=== PATIENT | female | born 1945 | race Caucasian/White ===

== ENCOUNTER 2018-05-24 17:20 | Emergency (ER) | payer MEDICARE, MEDICAID, OTHER ==
[2018-05-24 17:53] LABS: BEDSIDE GLUCOSE 135 MG/DL (83-110)
[2018-05-24 18:27] LABS: BASO # 0.1 10^3/uL (0.0-0.2); BASO % 0.8 % (0.0-1.0); EOS # 0.1 10^3/uL (0.0-0.50); EOS % 1.1 % (0.0-3.0); HEMATOCRIT 49.1 % (36.0-47.0); HEMOGLOBIN 15.9 g/dl (12.0-15.5); IMMATURE GRANULOCYTE % 0.4 % (0-3.0); LYMPH # 2.3 10^3/uL (1.5-4.5); LYMPH % 20.3 % (24.0-44.0); MEAN CORPUSCULAR HEMOGLOBIN 29.3 pg (27.0-33.0); MEAN CORPUSCULAR HGB CONC 32.4 g/dl (32.0-36.5); MEAN CORPUSCULAR VOLUME 90.4 fl (80.0-96.0); MONO # 0.8 10^3/uL (0.0-0.8); MONO % 6.7 % (0.0-5.0); NEUTROPHILS % 70.7 % (36.0-66.0); PLATELET COUNT, AUTOMATED 338 10^3/uL (150-450); RED BLOOD COUNT 5.43 10^6/uL (4.00-5.40); RED CELL DISTRIBUTION WIDTH 15.3 % (11.5-14.5); WHITE BLOOD COUNT 11.3 10^3/uL (4.0-10.0)
[2018-05-24 18:57] LABS: ANION GAP 10 MEQ/L (8-16); BLOOD UREA NITROGEN 19 MG/DL (7-18); CALCIUM LEVEL 9.2 MG/DL (8.8-10.2); CARBON DIOXIDE LEVEL 23 MEQ/L (21-32); CHLORIDE LEVEL 109 MEQ/L (98-107); CPK CREATINE PHOSPHOKINASE 75 U/L (26-192); GLOMERULAR FILTRATION RATE 51.7 (>39); GLUCOSE, FASTING 124 MG/DL (70-100); MB/CK RELATIVE INDEX 2.53 (< OR =4); POTASSIUM SERUM 4.6 MEQ/L (3.5-5.1); SODIUM LEVEL 142 MEQ/L (136-145); TROPONIN I < 0.02 NG/ML (< 0.10)
[2018-05-24 19:11] LABS: INR 1.01; PROTHROMBIN TIME 13.4 SECONDS (12.1-14.4)
== END 2018-05-24 19:27 | disposition home or self-care (01) ==
LOC: M ED 17:20
DX: R55 Syncope and collapse (principal); R53.1 Weakness; I10 Essential (primary) hypertension; I25.10 Atherosclerotic heart disease of native coronary artery without angina pectoris; Z86.73 Personal history of transient ischemic attack (TIA), and cerebral infarction without residual deficits; Z79.899 Other long term (current) drug therapy; Z79.82 Long term (current) use of aspirin
CPT/HCPCS: 71045

== ENCOUNTER → 2018-08-17 | Outpatient (REF) | payer MEDICARE, MEDICAID ==
[~2018-08-17] MED LIST: AMLO5TAB6 PO; ASPI1TAB20 PO; ATOR1TAB21 PO; CELE40TA OR; ESTR62CR VA; HYDR12CA PO; LISI-672 PO; LISI10TA4 OR; [UNRECOGNIZED DRUG - REMARK]
[2018-08-17 03:08] LABS: APPEARANCE, URINE CLOUDY (CLEAR); BACTERIA, URINE AUTO 1+ (NEGATIVE); BILIRUBIN, URINE AUTO NEGATIVE (NEGATIVE); BLOOD, URINE BLOOD 2+ (NEGATIVE); CALCIUM OXALATE CRYSTALS MODERATE; COLOR, URINE YELLOW (YELLOW); GLUCOSE, URINE (UA) AUTO NEGATIVE (NEGATIVE); KETONE, URINE AUTO NEGATIVE (NEGATIVE); LEUKOCYTE ESTERASE, URINE AUTO 2+ (NEGATIVE); MUCUS, URINE SMALL (NEGATIVE); NITRITE, URINE AUTO NEGATIVE (NEGATIVE); PROTEIN, URINE AUTO NEGATIVE (NEGATIVE); RBC, URINE AUTO 46 /HPF (0-3); SPECIFIC GRAVITY URINE AUTO 1.018 (1.002-1.035); SQUAMOUS EPITHELIAL CELL UR AU 2 /HPF (0-6); UROBILINOGEN, URINE AUTO 0.2 mg/dL (0.0-2.0); WBC, URINE AUTO 34 /HPF (0-3)
== END ==
PROVIDERS: ATTEND Family Medicine
DX: N39.0 Urinary tract infection, site not specified (principal)

== ENCOUNTER → 2020-06-17 | Outpatient (REF) | payer MEDICARE, MEDICAID ==
[~2020-06-17] MED LIST changes: +AMLO1TAB24 PO; -AMLO5TAB6 PO; -ASPI1TAB20 PO; +ASPI325T57 PO; -LISI-672 PO; +LISI30TA4 PO
== END ==
PROVIDERS: ATTEND Internal Medicine
DX: Z20.828 Contact with and (suspected) exposure to other viral communicable diseases (principal)

== ENCOUNTER → 2020-06-22 | Outpatient (REF) | payer MEDICARE, MEDICAID | PROVIDERS: ATTEND Internal Medicine | DX: Z20.828 Contact with and (suspected) exposure to other viral communicable diseases (principal) ==

== ENCOUNTER → 2020-06-29 | Outpatient (REF) | payer MEDICARE, MEDICAID | PROVIDERS: ATTEND Internal Medicine | DX: Z20.828 Contact with and (suspected) exposure to other viral communicable diseases (principal) ==

== ENCOUNTER → 2020-07-06 | Outpatient (REF) | payer MEDICARE, MEDICAID | PROVIDERS: ATTEND Internal Medicine | DX: Z11.52 Encounter for screening for COVID-19 (principal) ==

== ENCOUNTER → 2020-07-13 | Outpatient (REF) | payer MEDICARE, MEDICAID | PROVIDERS: ATTEND Internal Medicine | DX: Z20.822 Contact with and (suspected) exposure to COVID-19 (principal) ==

== ENCOUNTER → 2020-07-20 | Outpatient (REF) | payer MEDICARE, MEDICAID | PROVIDERS: ATTEND Internal Medicine | DX: Z20.822 Contact with and (suspected) exposure to COVID-19 (principal) ==

== ENCOUNTER → 2020-07-27 | Outpatient (REF) | payer MEDICARE, MEDICAID | PROVIDERS: ATTEND Internal Medicine | DX: Z20.822 Contact with and (suspected) exposure to COVID-19 (principal) ==

== ENCOUNTER → 2020-08-03 | Outpatient (REF) | payer MEDICARE, MEDICAID | PROVIDERS: ATTEND Internal Medicine | DX: Z20.822 Contact with and (suspected) exposure to COVID-19 (principal) ==

== ENCOUNTER → 2020-08-10 | Outpatient (REF) | payer MEDICARE, MEDICAID | PROVIDERS: ATTEND Internal Medicine | DX: Z20.822 Contact with and (suspected) exposure to COVID-19 (principal) ==

== ENCOUNTER → 2020-08-17 | Outpatient (REF) | payer MEDICARE, MEDICAID | PROVIDERS: ATTEND Internal Medicine | DX: Z20.822 Contact with and (suspected) exposure to COVID-19 (principal) ==

== ENCOUNTER 2021-03-07 16:28 | Emergency (ER) | payer MEDICARE, MEDICAID ==
[~2021-03-07] VITALS: Ht 154.9 cm; Wt 71.8 kg
[2021-03-07] MEDS ORDERED: LIDOCAINE 5% (LIDODERM) PATCH TD ONE (16:40)
[2021-03-07] MEDS ORDERED: ACETAMINOPHEN 500 MG TAB PO ONE (16:40)
--- NOTE | 2021-03-07 17:19 | REP ---
INDICATION: pain no known trauma. COMPARISON: None. TECHNIQUE: Five views of the lumbar spine were obtained. FINDINGS: There is mild dextroscoliosis of the lumbar spine. There is moderate compression of the superior endplate of T12. There is degenerative disc disease, T12-L1, L2-3 and L3-4, with narrowing of the disc spaces and marginal osteophytes. There is no spondylolisthesis. The SI joints are normal. There is calcific vascular disease of the abdominal aorta and common iliac arteries. IMPRESSION: 1. Multilevel degenerative disc disease of the lower thoracic and lumbar spine with mild dextroscoliosis. 2. Moderate compression of the superior endplate of T12 of indeterminate age. 3. Calcific vascular disease of the abdominal aorta and iliac arteries. <Electronically signed by Timbo Powell > 03/07/21 [id number]
--- NOTE | 2021-03-07 18:16 | REPVR ---
PROCEDURE INFORMATION: Exam: CT Thoracic Spine Without Contrast Exam date and time: 03/07/2021 5:34 PM Age: 75 years old Clinical indication: Injury or trauma; Fall; Blunt trauma (contusions or hematomas); Additional info: T12 compression FX? Retropulsed TECHNIQUE: Imaging protocol: Computed tomography images of the thoracic spine without contrast. Radiation optimization: All CT scans at this facility use at least one of these dose optimization techniques: automated exposure control; mA and/or kV adjustment per patient size (includes targeted exams where dose is matched to clinical indication); or iterative reconstruction. COMPARISON: CR Spine. Lumbosacral, complete 03/07/2021 4:36 PM FINDINGS: Vertebrae: No acute fracture. Normal alignment. Discs/Spinal canal/Neural foramina: Age indeterminate, likely acute or subacute, compression deformity at T12 with mild retropulsion of fracture parts into the spinal canal resulting in a mild to moderate central spinal stenosis with mild cord impingement. The spine demonstrates mild degenerative changes. Soft tissues: Unremarkable. Lungs: Bilateral pleuroparenchymal scarring. Moderate centrilobular emphysematous changes in the upper lung zones demonstrated. Mediastinum: Small hiatal hernia. Gallbladder and bile ducts: Cholelithiasis. IMPRESSION: 1. Age indeterminate, likely acute or subacute, compression deformity at T12 with mild retropulsion of fracture parts into the spinal canal resulting in a mild to moderate central spinal stenosis with mild cord impingement. 2. Moderate centrilobular emphysematous changes in the upper lung zones demonstrated. Electronically signed by: Reynaldo Painter On 03/07/2021 18:16:21 PM
[2021-03-07 19:50] LABS: RSV AMPLIFICATION NEGATIVE (NEGATIVE)
[2021-03-07 20:45] VITALS: BP 161/65
[2021-03-07] MEDS ORDERED: **NOTE PATIENT COMMENT** MISC XX SCH (21:00)
== END 2021-03-07 21:02 | disposition short-term general hospital (02) ==
LOC: M ED 16:28 → EDBD 16:28 → M ED 21:02
DX: S22.088A Other fracture of T11-T12 vertebra, initial encounter for closed fracture (principal); M48.04 Spinal stenosis, thoracic region; I10 Essential (primary) hypertension; I25.10 Atherosclerotic heart disease of native coronary artery without angina pectoris; E78.9 Disorder of lipoprotein metabolism, unspecified; Z86.73 Personal history of transient ischemic attack (TIA), and cerebral infarction without residual deficits; Z79.899 Other long term (current) drug therapy; Z79.82 Long term (current) use of aspirin

== ENCOUNTER 2021-03-10 14:30 | Emergency (ER) | payer MEDICARE, MEDICAID ==
[~2021-03-10] VITALS: Ht 154.9 cm; Wt 71.8 kg
[2021-03-10] MEDS ORDERED: DONE10TA90 PO (16:32)
[2021-03-10] MEDS ORDERED: AMLO1TAB24 PO (16:32)
[2021-03-10] MEDS ORDERED: LISI10TA22 PO (16:32)
[2021-03-10] MEDS ORDERED: ASPI-161 PO (16:32)
[2021-03-10] MEDS ORDERED: ATOR40TA75 PO (16:32)
[2021-03-10] MEDS ORDERED: ACET500T15 PO (16:32)
[2021-03-10] MEDS ORDERED: HOME MED LIST COMPLETE! XX SCH (16:35)
[2021-03-10] MEDS ORDERED: NORCO, ANEXSIA 5/325MG TABLET (HYDROcodone/ACETAMINOPHEN) PO ONE ×2 (16:40→21:25)
--- NOTE | 2021-03-10 21:46 | REPVR ---
PROCEDURE INFORMATION: Exam: MR Thoracic Spine Without Contrast Exam date and time: 03/10/2021 8:58 PM Age: 75 years old Clinical indication: Pain in thoracic spine; Other: Severe back pain with loss of bowel/urine TECHNIQUE: Imaging protocol: Multiplanar magnetic resonance images of the thoracic spine without contrast. COMPARISON: CT Spine,thoracic w/o contrast 03/07/2021 5:24 PM FINDINGS: Vertebrae: Exaggeration of the lower thoracic kyphosis. Moderate T12 superior endplate compression fracture appears subacute. There is mild residual edema along the superior endplate. Conspicuity of a discrete fracture line on the sagittal T1 sequence. 3-4 mm of superior endplate osseous retropulsion causes mild central spinal canal stenosis. Epidural space: No evidence epidural hematoma. Spinal cord: Normal signal. No cord compression. Discs/Spinal canal/Neural foramina: There is disc desiccation throughout. Mild lower thoracic prevertebral spondylosis. No focal disc protrusion extrusion seen. No significant central spinal canal stenoses. Soft tissues: Mild paravertebral soft tissue edema about the T12 level. IMPRESSION: Moderate, subacute T12 superior endplate compression fracture. Electronically signed by: Lizzie East On 03/10/2021 21:46:32 PM
--- NOTE | 2021-03-10 21:58 | REPVR ---
PROCEDURE INFORMATION: Exam: MR Lumbar Spine Without Contrast Exam date and time: 03/10/2021 8:58 PM Age: 75 years old Clinical indication: Low back pain; Additional info: Severe back pain with loss of bowel/urine TECHNIQUE: Imaging protocol: Multiplanar magnetic resonance images of the lumbar spine without intravenous contrast. COMPARISON: MRI-Spine,Thoracic without con 03/10/2021 8:10:46 PM FINDINGS: Vertebrae: Anatomic alignment. No acute lumbar fracture seen. T12 compression deformity is described separately. Spinal epidural space: No evidence of epidural hematoma. Spinal cord: Normal signal. No cord compression. Disc desiccation throughout. No high-grade disc height loss. Mild prevertebral spondylosis at L2-L3 and L3-L4. L1-L2: Mild facet arthropathy. No stenoses. L2-L3: Mild facet arthropathy. No stenoses. L3-L4: Slight disc bulge and mild facet arthropathy. No stenoses. L4-L5: Mild facet arthropathy and ligamentum flavum buckling. No stenoses. L5-S1: Mild facet arthropathy. No stenoses. Soft tissues: Nonspecific edema in the back subcutaneous fat, potentially dependent/positional. There may be a duodenal diverticulum. The gallbladder is distended. IMPRESSION: Essentially unremarkable MRI lumbar spine. Electronically signed by: Lizzie East On 03/10/2021 21:57:53 PM
[2021-03-10] MEDS ORDERED: HYDR-3713 PO (22:53)
[2021-03-10 23:03] VITALS: BP 120/59
[2021-03-10] MEDS ORDERED: METAL LOCK LOOP XX ONE (23:28)
[2021-03-10] MEDS ORDERED: NORCO 5/325MG TABLET (BULK FOR ED) PO ONE (23:30)
== END 2021-03-10 23:41 | disposition home or self-care (01) ==
LOC: EDBD 14:30 → M ED 14:30
DX: S22.080A Wedge compression fracture of T11-T12 vertebra, initial encounter for closed fracture (principal); X58.XXXA Exposure to other specified factors, initial encounter; Y92.9 Unspecified place or not applicable; Y93.9 Activity, unspecified; Y99.9 Unspecified external cause status; I10 Essential (primary) hypertension; F03.90 Unspecified dementia, unspecified severity, without behavioral disturbance, psychotic disturbance, mood disturbance, and anxiety; Z79.82 Long term (current) use of aspirin; Z79.899 Other long term (current) drug therapy

== ENCOUNTER 2021-03-13 11:53 | Inpatient (IN) | payer MEDICARE, MEDICAID ==
[~2021-03-13] VITALS: Ht 154.9 cm; Wt 61.5 kg
[~2021-03-13 11:53] MED LIST changes: +ACET500T15 PO; +ASPI-161 PO; +ATOR40TA75 PO; +DONE10TA90 PO; +HYDR-3713 PO; +LISI10TA22 PO
[2021-03-13] MEDS ORDERED: HYDR-3713 PO (12:57)
[2021-03-13] MEDS ORDERED: HOME MED LIST COMPLETE! XX SCH (13:00)
[2021-03-13 13:40] LABS: RSV AMPLIFICATION NEGATIVE (NEGATIVE)
[2021-03-13] MEDS: NORCO, ANEXSIA 5/325MG TABLET (HYDROcodone/ACETAMINOPHEN) PO PRN ×2 (14:31→23:19)
[2021-03-13 15:05] VITALS: BP 144/80
[2021-03-13] MEDS: ACETAMINOPHEN TAB 650MG DOSE (2X325MG) PO SCH ×2 (15:40→20:44)
[2021-03-13] MEDS: amLODIPine 5 MG TAB PO SCH (15:41)
[2021-03-13] MEDS: ASPIRIN 81MG ENTERIC TABLET PO SCH (15:42)
[2021-03-13] MEDS: traMADol 50 MG TAB PO SCH ×2 (15:42→20:45)
[2021-03-13 16:49] LABS: BASO # 0.1 10^3/uL (0.0-0.2); BASO % 0.6 % (0.0-1.0); EOS # 0.1 10^3/uL (0.0-0.5); EOS % 0.8 % (0.0-3.0); HEMATOCRIT 52.2 % (36.0-47.0); HEMOGLOBIN 16.6 g/dl (12.0-15.5); LYMPH # 2.3 10^3/uL (1.5-5.0); LYMPH % 16.1 % (24.0-44.0); MEAN CORPUSCULAR HEMOGLOBIN 28.8 pg (27.0-33.0); MEAN CORPUSCULAR HGB CONC 31.8 g/dl (32.0-36.5); MEAN CORPUSCULAR VOLUME 90.6 fl (80.0-96.0); MONO # 0.9 10^3/uL (0.0-0.8); MONO % 6.2 % (2.0-8.0); NEUTROPHILS # 10.8 10^3/uL (1.5-8.5); NEUTROPHILS % 75.7 % (36.0-66.0); PLATELET COUNT, AUTOMATED 371 10^3/uL (150-450); RED BLOOD COUNT 5.76 10^6/uL (4.00-5.40); WHITE BLOOD COUNT 14.2 10^3/uL (4.0-10.0)
[2021-03-13 17:16] LABS: BLOOD UREA NITROGEN 37 MG/DL (7-18); CALCIUM LEVEL 9.6 MG/DL (8.8-10.2); CARBON DIOXIDE LEVEL 23 MEQ/L (21-32); CHLORIDE LEVEL 104 MEQ/L (98-107); CREATININE FOR GFR 0.82 MG/DL (0.55-1.30); GLOMERULAR FILTRATION RATE > 60.0 (>39); GLUCOSE, FASTING 94 MG/DL (70-100); POTASSIUM SERUM 4.5 MEQ/L (3.5-5.1); SODIUM LEVEL 138 MEQ/L (136-145)
[2021-03-13] MEDS ORDERED: NS 500 ML IV ONE (18:00)
--- NOTE | 2021-03-13 18:00 | HPEPDOC ---
General Date of Admission 03/13/21 Date of Service: Mar 13, 2021 Chief Complaint The patient is a 75-year-old female admitted with a reason for visit of Back Pain/Adm. History of Present Illness 75 year old female from [facility] assisted living with H of dementia, HTN, HLD, CVA, fall and pelvic rami fracture in 2018, initially presented to ED on 03/07/21 for low back pain found to have T12 compression fracture with some retropulsion. There was no fall or trauma. As we did not have orthopedic spine coverage patient was sent down to [place] from ED. There she was evaluated and told non surgical, pain control given a brace and discharged. Today she was sent from [facility] becuase of uncontrollable back pain and unable to do her ADLs independently and calling the staff every 15 mins for help . In ED she says that her her goes away with tylenol but no one was giving her the pain meds. Her got a done of norco at 2 am and a tylenol and 5:45 am. Initially in the ED she was pain free able to get in and out of bed by herself and sit in the chair by herself reported and felt good and wanted to be discharged. PT came to evaluate her 30 mins later at that time she was complaining of severe back pain and needed 2 person assist to get out of bed so could not be discharged back to assisted living. Hospitalist ilana headley consulted for admission for pain control and inability to ambulate. On my interview she was complaining of low back pain 7/10 in intensity sharp aching in nature and movement was making it worse. She had difficulty in turning to the side in bed. Labs showed mild dehydration. Home Medications Scheduled Amlodipine Besylate (Amlodipine Besylate) 5 Mg Tablet, 5 MG PO DAILY, (Reported) Aspirin (Aspirin EC) 81 Mg Tablet.dr, 81 MG PO DAILY, (Reported) Atorvastatin Calcium (Atorvastatin Calcium) 40 Mg Tablet, 40 MG PO QHS, (Reported) Donepezil HCl (Donepezil HCl) 10 Mg Tablet, 10 MG PO QHS, (Reported) Lisinopril (Lisinopril) 10 Mg Tablet, 10 MG PO BID, (Reported) Scheduled PRN Acetaminophen (Acetaminophen) 500 Mg Tablet, 1,000 MG PO Q8H PRN for PAIN LEVEL 1-4, (Reported) Hydrocodone/Acetaminophen (Hydrocodone-Acetamin 5-325 mg) 1 Each Tablet, 1 TAB PO BID PRN for PAIN LEVEL 5-10, (Reported) Allergies Coded Allergies: No Known Drug Allergies (Verified Allergy, Unknown, 03/10/21) Past Medical History Medical History Hypertension, hyperlipidemia, osteoporosis, dementia, unsteady gait, CVA likely embolic in 2018, fall and pubic rami # in 2018 Surgical History Right hip pinning 2007 Family History Significant Family History: No pertinent family hx (discussed with patient. She reports everyone in her family is fat otherwise ok. ) Social History * Smoker: former Smoker Alcohol: Denies Drugs: denies A-FIB/CHADSVASC A-FIB History Current/History of A-Fib/PAF?: No Review of Systems Constitutional: Denies: Chills, Fever, Night Sweats Eyes: Denies: Pain, Vision change ENT: Denies: Head Aches, Ear Pain, Dysphagia Skin: Denies: Rash, Lesions, Breakdown Pulmonary: Denies: Dyspnea, Cough Cardiovascular: Denies: Chest Pain, Palpitations, Orthopnea, Paroxysmal Noc. Dyspnea, Lt Headedness Gastrointestinal: Denies: Nausea, Vomiting, Abdominal Pain, Diarrhea Genitourinary: Denies: Dysuria, Frequency, Incontinence, Retention Hematologic: Denies: Bruising, Bleeding Excessively Musculoskeletal: Reports: Back Pain, Joint Pain Neurological: Denies: Weakness, Numbness, Change in speech, Confusion Psych: Reports: Memory Issues Physical Examination General Exam: Positive: Alert, Cooperative, No Acute Distress Eye Exam: Positive: PERRLA, Conjunctiva & lids normal, EOMI; Negative: Sclera icteric ENT Exam: Positive: Atraumatic, Mucous membr. moist/pink, Pharynx Normal Neck Exam: Positive: Supple; Negative: JVD, thyromegaly Chest Exam: Positive: Clear to auscultation, Normal air movement Heart Exam: Positive: Rate Normal, Regular Rhythm, Normal S1, Normal S2; Negative: Murmurs, Rubs Abdomen Exam: Positive: Normal bowel sounds, Soft; Negative: Tenderness Extremity Exam: Negative: Clubbing, Cyanosis, Edema Skin Exam: Positive: Nl turgor and temperature; Negative: Breakdown, Lesion Neuro Exam: Positive: Normal Speech, Normal Tone, Sensation Intact Psych Exam: Positive: Oriented x 3 Vital Signs Vital Signs Date Time Temp Pulse Resp B/P (MAP) Pulse Ox O2 Delivery O2 Flow Rate FiO2 03/13/21 12:00 98.3 88 16 143/87 (105) 96 Room Air Assessment/Plan 75 year old female from [facility] assisted living with PMH of dementia, HTN, HLD, CVA, fall and pelvic rami fracture in 2018, initially presented to ED on 03/07/21 for low back pain found to have T12 compression fracture with some retropulsion. There was no fall or trauma. As we did not have orthopedic spine coverage patient was sent down to [place] from ED. There she was evaluated and told non surgical, pain control given a brace and discharged. Today she was sent from [facility] becuase of uncontrollable back pain and unable to do her ADLs independently and calling the staff every 15 mins for help . In ED she says that her her goes away with tylenol but no one was giving her the pain meds. Her got a done of norco at 2 am and a tylenol and 5:45 am. Initially in the ED she was pain free able to get in and out of bed by herself and sit in the chair by herself reported and felt good and wanted to be discharged. PT came to evaluate her 30 mins later at that time she was complaining of severe back pain and needed 2 person assist to get out of bed so could not be discharged back to assisted living. Hospitalist was consulted for admission for pain control and inability to ambulate. Mild dehydration as suggested by elvated Hb, elevated BUN will give a small bolus of IVF. T12 compression fracture pain control with tylenol, tramadol, norco Patient reports she has a brace but says its very complicated to put on. PT/OT weight bearing as tolerated. Out of bed for all meals. Dementia continue donepezil HTN lisinopril and amlodipine. H/o Stroke continue ASA, statin. Plan / VTE VTE Prophylaxis Ordered?: Yes Ynes Krishna MD Mar 13, 2021 13:03
[2021-03-13] MEDS: DOCUSATE SODIUM 100MG CAPSULE PO SCH (20:44)
[2021-03-13] MEDS: ATORVASTATIN 20 MG TAB PO SCH (20:44)
[2021-03-13] MEDS: DONEPEZIL 5 MG TAB PO SCH (20:44)
[2021-03-13 21:53] VITALS: BP 115/54
[2021-03-13 22:55] VITALS: BP 115/54
[2021-03-14] MEDS ORDERED: carisoprodoL 350 MG TAB PO PRN (00:35)
[2021-03-14] MEDS ORDERED: DICLOFENAC EPOLAMINE 1.3 % PATCH TOP PRN (00:40)
[2021-03-14] MEDS: NORCO, ANEXSIA 5/325MG TABLET (HYDROcodone/ACETAMINOPHEN) PO PRN ×2 (05:04→12:08)
[2021-03-14 05:58] VITALS: BP 139/72
[2021-03-14 06:35] VITALS: BP 139/72
[2021-03-14] MEDS: DOCUSATE SODIUM 100MG CAPSULE PO SCH ×2 (09:04→20:25)
[2021-03-14] MEDS: amLODIPine 5 MG TAB PO SCH (09:04)
[2021-03-14] MEDS: ACETAMINOPHEN TAB 650MG DOSE (2X325MG) PO SCH ×3 (09:04→20:25)
[2021-03-14] MEDS: ENOXAPARIN 40MG/0.4ML SYRINGE (J1650 PER 10MG) SC SCH (09:05)
[2021-03-14] MEDS: ASPIRIN 81MG ENTERIC TABLET PO SCH (09:05)
[2021-03-14] MEDS: traMADol 50 MG TAB PO SCH ×3 (09:06→20:26)
--- NOTE | 2021-03-14 10:59 | IPNPDOC ---
Subjective Date Seen The patient was seen on 03/14/21. Subjective Chief Complaint/HPI Comfortable this morning. Does not complain of any back pain. But here she is upset that she is in the hospital she wants to go home. Does not want to get out of bed this morning. Objective Physical Examination General Exam: Positive: Alert, Cooperative, No Acute Distress Eye Exam: Positive: PERRLA, Conjunctiva & lids normal, EOMI; Negative: Sclera icteric ENT Exam: Positive: Atraumatic, Mucous membr. moist/pink, Pharynx Normal Neck Exam: Positive: Supple; Negative: JVD, thyromegaly Chest Exam: Positive: Clear to auscultation, Normal air movement Heart Exam: Positive: Rate Normal, Regular Rhythm, Normal S1, Normal S2; Negative: Murmurs, Rubs Abdomen Exam: Positive: Normal bowel sounds, Soft; Negative: Tenderness Extremity Exam: Negative: Clubbing, Cyanosis, Edema Skin Exam: Positive: Nl turgor and temperature; Negative: Breakdown, Lesion Neuro Exam: Positive: Normal Speech, Normal Tone, Sensation Intact Psych Exam: Positive: Oriented x 3 Assessment /Plan Assessment 75 year old female from [facility] assisted living with PMH of dementia, HTN, HLD, CVA, fall and pelvic rami fracture in 2018, initially presented to ED on 03/07/21 for low back pain found to have T12 compression fracture with some retropulsion. There was no fall or trauma. As we did not have orthopedic spine coverage patient was sent down to [place] from ED. There she was evaluated and told non surgical, pain control given a brace and discharged. [facility] to [facility] and calling the staff every 15 mins for help . In ED she says that her her goes away with tylenol but no one was giving her the pain meds. Her got a done of norco at 2 am and a tylenol and 5:45 am. Initially in the ED she was pain free able to get in and out of bed by herself and sit in the chair by herself reported and felt good and wanted to be discharged. PT came to evaluate her 30 mins later at that time she was complaining of severe back pain and needed 2 person assist to get out of bed so could not be discharged back to assisted living. Hospitalist was consulted for admission for pain control and inability to ambulate. Mild dehydration as suggested by elvated Hb, elevated BUN will give a small bolus of IVF. T12 compression fracture pain control with tylenol, tramadol, norco Patient reports she has a brace but says its very complicated to put on. PT/OT weight bearing as tolerated. Out of bed for all meals. Dementia continue donepezil HTN lisinopril and amlodipine. H/o Stroke continue ASA, statin. Plan/VTE VTE Prophylaxis Ordered?: Yes VS, I&O, 24H, Fishbone Vital Signs/I&O Vital Signs Date Time Temp Pulse Resp B/P (MAP) Pulse Ox O2 Delivery O2 Flow Rate FiO2 03/14/21 09:06 16 03/14/21 09:04 76 141/73 03/14/21 06:35 97.5 97 Room Air I&O- Last 24 Hours up to 6 AM 03/14/21 06:00 Intake Total 100 ml Balance 100 ml Laboratory Data 24H LABS Laboratory Tests 2 03/13/21 12:51: Coronavirus (COVID-19)(PCR) NEGATIVE, Influenza Type A (RT-PCR) NEGATIVE, Influenza Type B (RT-PCR) NEGATIVE, Respiratory Syncytial Virus (PCR) NEGATIVE 03/13/21 16:33: Immature Granulocyte % (Auto) 0.6, Neutrophils (%) (Auto) 75.7H, Lymphocytes (%) (Auto) 16.1L, Monocytes (%) (Auto) 6.2, Eosinophils (%) (Auto) 0.8, Basophils (%) (Auto) 0.6, Neutrophils # (Auto) 10.8H, Lymphocytes # (Auto) 2.3, Monocytes # (Auto) 0.9H, Eosinophils # (Auto) 0.1, Basophils # (Auto) 0.1, Nucleated Red Blood Cells % (auto) 0.0, Anion Gap 11, Glomerular Filtration Rate > 60.0, Calcium Level 9.6 CBC/BMP Laboratory Tests 03/13/21 16:33 Ynes Krishna MD Mar 14, 2021 10:59
[2021-03-14] MEDS: DONEPEZIL 5 MG TAB PO SCH (20:25)
[2021-03-14] MEDS: ATORVASTATIN 20 MG TAB PO SCH (20:25)
[2021-03-14 22:33] VITALS: BP 112/59
[2021-03-15] MEDS: NORCO, ANEXSIA 5/325MG TABLET (HYDROcodone/ACETAMINOPHEN) PO PRN ×2 (02:53→12:34)
[2021-03-15 06:41] VITALS: BP 115/59
[2021-03-15] MEDS: DOCUSATE SODIUM 100MG CAPSULE PO SCH (08:10)
[2021-03-15] MEDS: ENOXAPARIN 40MG/0.4ML SYRINGE (J1650 PER 10MG) SC SCH (08:10)
[2021-03-15] MEDS: ASPIRIN 81MG ENTERIC TABLET PO SCH (08:10)
[2021-03-15 08:11] VITALS: BP 106/50
[2021-03-15] MEDS: traMADol 50 MG TAB PO SCH (08:11)
[2021-03-15] MEDS: amLODIPine 5 MG TAB PO SCH (08:11)
[2021-03-15] MEDS: ACETAMINOPHEN TAB 650MG DOSE (2X325MG) PO SCH (08:11)
[2021-03-15] MEDS ORDERED: ACET1TAB55 PO (08:55)
[2021-03-15] MEDS ORDERED: DICL1PAT6 TOP (08:55)
[2021-03-15] MEDS ORDERED: HYDR-3715 PO (08:55)
[2021-03-15] MEDS ORDERED: TRAM50TA2 PO (08:55)
--- NOTE | 2021-03-15 13:07 | DS.PDOC ---
Discharge Summary General Date of Admission Mar 13, 2021 at 13:03 Date of Discharge 03/15/21 Discharge Summary PROCEDURES PERFORMED DURING STAY: [None]. DISCHARGE DIAGNOSES: Intractable back pain due to recent T12 fracture. Gait instability and difficulty in ambulation SECONDARY DIAGNOSIS: Dementia, HTN, HLD, CVA 2018, fall and pelvic rami fracture in 2018, COMPLICATIONS/CHIEF COMPLAINT: Dementia,T12 Compression Fracture. HOSPITAL COURSE: 75 year old female from [facility] assisted living with PMH of dementia, HTN, HLD, CVA, fall and pelvic rami fracture in 2018, initially presented to ED on 03/07/21 for low back pain found to have T12 compression fracture with some retropulsion. There was no fall or trauma. As we did not have orthopedic spine coverage patient was sent down to [place] from ED. There she was evaluated and told non surgical, pain control given a brace and discharged. [facility] and calling the staff every 15 mins for help . In ED she says that her her goes away with tylenol but no one was giving her the pain meds. Her got a done of norco at 2 am and a tylenol and 5:45 am. Initially in the ED she was pain free able to get in and out of bed by herself and sit in the chair by herself reported and felt good and wanted to be discharged. PT came to evaluate her 30 mins later at that time she was complaining of severe back pain and needed 2 person assist to get out of bed so could not be discharged back to assisted living. Hospitalist was consulted for admission for pain control and inability to ambulate. Mild dehydration as suggested by elvated Hb, elevated BUN will give a small bolus of IVF. T12 compression fracture pain control with tylenol, tramadol, norco Patient reports she has a brace but says its very complicated to put on. PT/OT weight bearing as tolerated. Out of bed for all meals. Dementia continue donepezil HTN lisinopril and amlodipine. H/o Stroke continue ASA, statin. DISCHARGE MEDICATIONS: Please see below. ALLERGIES: Please see below. PHYSICAL EXAMINATION ON DISCHARGE: VITAL SIGNS: Please see below. General Exam: Positive: Alert, Cooperative, No Acute Distress Eye Exam: Positive: PERRLA, Conjunctiva & lids normal, EOMI; Negative: Sclera icteric ENT Exam: Positive: Atraumatic, Mucous membr. moist/pink, Pharynx Normal Neck Exam: Positive: Supple; Negative: JVD, thyromegaly Chest Exam: Positive: Clear to auscultation, Normal air movement Heart Exam: Positive: Rate Normal, Regular Rhythm, Normal S1, Normal S2; Negative: Murmurs, Rubs Abdomen Exam: Positive: Normal bowel sounds, Soft; Negative: Tenderness Extremity Exam: Negative: Clubbing, Cyanosis, Edema Skin Exam: Positive: Nl turgor and temperature; Negative: Breakdown, Lesion Neuro Exam: Positive: Normal Speech, Normal Tone, Sensation Intact Psych Exam: Positive: Oriented x 3 LABORATORY DATA: Please see below. ACTIVITY: [As tolerated]. DIET: Mechanical Soft DISCHARGE PLAN: ARU DISCHARGE CONDITION: [Stable]. TIME SPENT ON DISCHARGE: 35 minutes. Vital Signs/I&Os Vital Signs Date Time Temp Pulse Resp B/P (MAP) Pulse Ox O2 Delivery O2 Flow Rate FiO2 03/15/21 12:34 17 03/15/21 08:11 106/50 03/15/21 08:11 76 03/15/21 06:41 98.8 92 Room Air Discharge Medications Scheduled Amlodipine Besylate (Amlodipine Besylate) 5 Mg Tablet, 5 MG PO DAILY, (Reported) Aspirin (Aspirin EC) 81 Mg Tablet.dr, 81 MG PO DAILY, (Reported) Atorvastatin Calcium (Atorvastatin Calcium) 40 Mg Tablet, 40 MG PO QHS, (Reported) Donepezil HCl (Donepezil HCl) 10 Mg Tablet, 10 MG PO QHS, (Reported) Hydrocodone/Acetaminophen (Hydrocodone-Acetamin 5-325 mg) 1 Each Tablet, 1 TAB PO Q4HP for pain 7-10 Lisinopril (Lisinopril) 10 Mg Tablet, 10 MG PO BID, (Reported) Tramadol HCl (Tramadol HCl) 50 Mg Tablet, 50 MG PO BID Scheduled PRN Acetaminophen (Acetaminophen) 325 Mg Tablet, 650 MG PO Q4HP PRN for PAIN LEVEL 1-6 Diclofenac Epolamine (Diclofenac Epolamine) 1.3% Patch, 1 PATCH TOP BID PRN for back pain Allergies Coded Allergies: No Known Drug Allergies (Verified Allergy, Unknown, 03/10/21) Ynes Krishna MD Mar 15, 2021 13:07
== END 2021-03-15 13:05 | DRG 552 ==
LOC: M ED 11:53 → EDBD 11:53 → M ED INP 13:03 → ENRESERV 14:01 → M MS5PR 15:05
PROVIDERS: ADMIT Internal Medicine Nephrology; ATTEND Internal Medicine Nephrology
DX: M54.5 Low back pain (principal); M48.54XD Collapsed vertebra, not elsewhere classified, thoracic region, subsequent encounter for fracture with routine healing; E86.0 Dehydration; F03.90 Unspecified dementia, unspecified severity, without behavioral disturbance, psychotic disturbance, mood disturbance, and anxiety; I10 Essential (primary) hypertension; E78.5 Hyperlipidemia, unspecified; M81.0 Age-related osteoporosis without current pathological fracture; R26.89 Other abnormalities of gait and mobility; Z74.1 Need for assistance with personal care; Z86.73 Personal history of transient ischemic attack (TIA), and cerebral infarction without residual deficits; Z79.82 Long term (current) use of aspirin; Z79.891 Long term (current) use of opiate analgesic; Z79.899 Other long term (current) drug therapy; Z87.891 Personal history of nicotine dependence

== ENCOUNTER 2021-03-15 13:10 | Inpatient (IN) | payer MEDICARE, MEDICAID ==
[~2021-03-15] VITALS: Ht 154.9 cm; Wt 66.3 kg
[~2021-03-15 13:10] MED LIST changes: +ACET1TAB55 PO; +DICL1PAT6 TOP; +HYDR-3715 PO; +TRAM50TA2 PO
[2021-03-15 13:20] VITALS: BP 137/70
[2021-03-15] MEDS ORDERED: traMADol 50 MG TAB PO PRN (13:35)
[2021-03-15] MEDS ORDERED: MIRALAX *UNIT DOSE* 17GM PACKET PO PRN (13:35)
--- NOTE | 2021-03-15 13:49 | HPEPDOC ---
Oral Surgery Assistant Note DATE OF ADMISSION: 03-15-21 DATE OF SERVICE: 03-16-21 TIME OF ADMISSION: Please refer to physician's admission order. SOURCE OF ADMISSION INFORMATION: [facility] record and patient CHIEF COMPLAINT: T12 compression fracture HISTORY OF PRESENT ILLNESS: 75F pmh dementia, HTN, HLD, CVA, fall with recent pelvic fracture 2018 who lives in [place] at [facility] and presented to [facility] ED with back pain on 03-07-[address] spine was ordered showing, compression deformity at T12 with mild retropulsion of fracture parts into the spinal canal resulting in a mild to moderate central spinal stenosis with mild cord impingement. She was transferred to [facility] where she was given a brace, told this was non-operable, and sent home, but due to intractable back pain and inability to walk to she was sent back to [facility] ED on 03-13-21 where she was evaluated by therapy and found to have mobility and ADL impairments below her prior level of function. She was noted to have elevated Bun and was given IVF for dehydration, she had leukocytosis, and elevated blood pressures and deemed medically appropriate for discharge to ARU on 03-15-21. REVIEW OF SYSTEMS: The following is a completed review of systems and has been reviewed. Review of systems otherwise unremarkable. PAIN: Patient self reports non-radiating back pain EYES: No recent vision changes EARS, NOSE, & THROAT: No throat pain, or dysphagia, or rhinorrhea CARDIOVASCULAR: Denies chest pain or palpitations PULMONARY: Denies shortness of breath GASTROINTESTINAL: Denies constipation/diarrhea GENITOURINARY: denies dysuria MUSCULOSKELETAL: +generalized weakness NEUROLOGICAL:denies paresthesias, +dementia HEMATOLOGICAL: denies easy bruising SKIN: denies rash PSYCHIATRIC: +confused All other review of systems found to be negative. PAST MEDICAL HISTORY: as per HPI PAST SURGICAL HISTORY: Right hip ORIF 2007 ALLERGIES: Please see below. MEDICATIONS: Please see below. FAMILY HISTORY: non contributory SOCIAL HISTORY: Former smoker, no etoh/illicit drugs DIET: low sodium PHYSICAL EXAMINATION: VITAL SIGNS: Please see below. GENERAL: Pleasant and cooperative. No acute distress. HEENT: PERRL. Extraocular movements intact. Clear conjunctiva CARDIOVASCULAR: Regular rate and rhythm. No murmurs, rubs, or gallops LUNGS: Clear to auscultation bilaterally. No wheezes. No rhonchi ABDOMEN: Soft, nontender, nondistended. Positive bowel sounds. +suprapubic tenderness NEUROLOGICAL: Alert and oriented to self and time, unable to name president. Cranial nerves II through XII grossly intact. Sensation grossly intact EXTREMITIES: 5\5 strength bilateral upper extremities. 5-\5 strength right lower extremity. 5-/5 strength in left lower extremity. negative SLR bilat, no restriction/pain with on hip internal/external rotation LABORATORY DATA: Please see below. IMAGING:Imaging documentation personally reviewed by record FUNCTIONAL STATUS: Premorbid: Mod-Independent with all activities of daily life as well as mobility On Admission: Min assist for bed mobility, functional transfers, dressing, toileting, ambulation GOALS: Mod-I bed mobility, functional transfers, dressing, toileting, ambulation, bathing ASSESSMENT:75-year-old F with past medical history of CVA, HTn, dementia, osteoporosis who presents status post T12 compression fracture with spinal cord impingement and intractable low back pain PLAN: 1. Rehab- PT/OT advance mobility and ADls, strengthen/stretch/maintain ROM all4 limbs- TLSO when out of bed 2. Ortho- T12 compression fracture with retropulsion and spinal cord compression, cont pain management and therapy, patient evaled by spine surgeon at [facility] and no need for surgery, monitor for neuro decline 3. CArdiac- hx of HRN cont BP meds -HLD cont statin -ASA for cardioprotection -medicine consulted to assist in overall management 4. Neuro- hx of dementia, but able to partiicpate in therapy withj carryover, cont aricept, monitor for delirium 5. Resp- monitor for infection 6. Pain- tylenol, tramadol, tizanidine, Lidoderm patch 7. DVT ppx- lovenox and teds -dopplers to r/o dvt 8. GI ppx- protonix 9. - patient with suprapubic tenderness and leukocytosis, also incontinent of stool suspect UTI, UA/Ucx ordered 10. ID- leukocytosis, suspect UTI, blood cx, Ucx, MRSA, and CXR pending- patient febrile and vitals stable 11. Dispo- TBD POST ADMISSION PHYSICIAN EVALUATION: Medical and functional status: Description of medical status, medical assessment: As above. Rehabilitation diagnosis and current and prior cold morbid medical conditions as above. Risk of complications and plans to mitigate them as above. Description of functional status current status is as above. Prior status as above. Status compared to preadmission: There are no clinically significant differences between the patient's current status and the information described on the preadmission screening document. Treatment plan anticipated: Treatment plan is as described above. Required disciplines including physical therapy, occupational therapy, others as noted above. Intensity of services: 3 hours a day, 6 days a week. Special considerations: There are no specific special or safety considerations t hat would likely preclude immediate implementation of an intensive rehabilitation program or subsequently influence the plan of care. ATTESTATION: Considering all the information above, it is my best judgment that this patient requires intensive rehabilitation therapy as described above and an inpatient hospital environment due to the complexity of nursing, medical, and rehabilitation needs required by the patient. Furthermore, this patient can reasonably be expected to participate in an benefit from an inpatient rehabilitation stay with an interdisciplinary team approach to the delivery of rehabilitation care under the direction and supervision of rehabilitation physician. PROGNOSIS: good ESTIMATED LENGTH OF STAY:14-18 days. PROJECTED DISCHARGE DESTINATION: Home with family support and any durable medical equipment required to increase functional safety and mobility TIME SPENT COUNSELING AND COORDINATING INITIAL CARE: Greater than 70 minutes. Vital Signs Vital Signs Date Time Temp Pulse Resp B/P (MAP) Pulse Ox O2 Delivery O2 Flow Rate FiO2 03/15/21 13:20 97.0 72 18 137/70 (92) 95 Room Air Home Medications Scheduled Amlodipine Besylate (Amlodipine Besylate) 5 Mg Tablet, 5 MG PO DAILY, (Reported) Aspirin (Aspirin EC) 81 Mg Tablet.dr, 81 MG PO DAILY, (Reported) Atorvastatin Calcium (Atorvastatin Calcium) 40 Mg Tablet, 40 MG PO QHS, (Re ported) Donepezil HCl (Donepezil HCl) 10 Mg Tablet, 10 MG PO QHS, (Reported) Hydrocodone/Acetaminophen (Hydrocodone-Acetamin 5-325 mg) 1 Each Tablet, 1 TAB PO Q4HP Lisinopril (Lisinopril) 10 Mg Tablet, 10 MG PO BID, (Reported) Tramadol HCl (Tramadol HCl) 50 Mg Tablet, 50 MG PO BID Scheduled PRN Acetaminophen (Acetaminophen) 325 Mg Tablet, 650 MG PO Q4HP PRN for PAIN LEVEL 1-6 Diclofenac Epolamine (Diclofenac Epolamine) 1.3% Patch, 1 PATCH TOP BID PRN for back pain Allergies Coded Allergies: No Known Drug Allergies (Verified Allergy, Unknown, 03/10/21) A-FIB/CHADSVASC A-FIB History Current/History of A-Fib/PAF?: No Current PO Anticoag Therapy: No BERNARDO CORRIGAN MD Mar 15, 2021 13:49
[2021-03-15] MEDS ORDERED: HOME MED LIST COMPLETE! XX SCH (14:55)
[2021-03-15] MEDS ORDERED: PILL CUTTER 1 EACH XX PRN (15:15)
[2021-03-15] MEDS: REMEDY PHYTOPLEX Z-GUARD PASTE 113GM TUBE (FROM STOREROOM PRODUCT) TOP SCH ×2 (16:00→21:00)
[2021-03-15] MEDS: ACETAMINOPHEN 500 MG TAB PO SCH ×2 (17:19→21:15)
[2021-03-15] MEDS: traMADol 50 MG TAB PO SCH (17:19)
[2021-03-15 20:00] VITALS: BP 128/63
[2021-03-15] MEDS: ATORVASTATIN 20 MG TAB PO SCH (21:12)
[2021-03-15] MEDS: DOCUSATE SODIUM 100MG CAPSULE PO SCH (21:13)
[2021-03-15] MEDS: SENNA 8.6 MG TAB (SENOKOT) PO SCH (21:13)
[2021-03-15] MEDS: DONEPEZIL 5 MG TAB PO SCH (21:14)
[2021-03-15] MEDS: LIDOCAINE 5% (LIDODERM) PATCH TD SCH (21:17)
[2021-03-16 06:00] VITALS: BP 118/59
[2021-03-16 07:09] LABS: BASO # 0.1 10^3/uL (0.0-0.2); BASO % 0.5 % (0.0-1.0); EOS # 0.2 10^3/uL (0.0-0.5); EOS % 1.2 % (0.0-3.0); HEMATOCRIT 48.3 % (36.0-47.0); HEMOGLOBIN 15.6 g/dl (12.0-15.5); LYMPH # 2.8 10^3/uL (1.5-5.0); LYMPH % 16.6 % (24.0-44.0); MEAN CORPUSCULAR HEMOGLOBIN 28.3 pg (27.0-33.0); MEAN CORPUSCULAR HGB CONC 32.3 g/dl (32.0-36.5); MEAN CORPUSCULAR VOLUME 87.5 fl (80.0-96.0); MONO # 1.4 10^3/uL (0.0-0.8); NEUTROPHILS # 12.5 10^3/uL (1.5-8.5); NEUTROPHILS % 73.1 % (36.0-66.0); PLATELET COUNT, AUTOMATED 432 10^3/uL (150-450); RED BLOOD COUNT 5.52 10^6/uL (4.00-5.40)
[2021-03-16 07:31] LABS: ALBUMIN 2.5 GM/DL (3.2-5.2); ALT/SGPT 42 U/L (12-78); BILIRUBIN,TOTAL 0.4 MG/DL (0.2-1.0); BLOOD UREA NITROGEN 49 MG/DL (7-18); CALCIUM LEVEL 9.5 MG/DL (8.8-10.2); CARBON DIOXIDE LEVEL 22 MEQ/L (21-32); CHLORIDE LEVEL 106 MEQ/L (98-107); CREATININE FOR GFR 0.83 MG/DL (0.55-1.30); GLOMERULAR FILTRATION RATE > 60.0 (>39); GLUCOSE, FASTING 80 MG/DL (70-100); POTASSIUM SERUM 3.8 MEQ/L (3.5-5.1); SODIUM LEVEL 138 MEQ/L (136-145); TOTAL PROTEIN 7.5 GM/DL (6.4-8.2)
[2021-03-16] MEDS: DOCUSATE SODIUM 100MG CAPSULE PO SCH ×2 (08:53→21:23)
[2021-03-16] MEDS: ASPIRIN 81MG ENTERIC TABLET PO SCH (08:53)
[2021-03-16] MEDS: PANTOPRAZOLE 40MG TAB (PROTONIX) PO SCH (08:53)
[2021-03-16] MEDS: ACETAMINOPHEN 500 MG TAB PO SCH ×3 (08:53→21:22)
[2021-03-16] MEDS: traMADol 50 MG TAB PO SCH ×3 (08:53→17:51)
[2021-03-16] MEDS: amLODIPine 5 MG TAB PO SCH (08:54)
[2021-03-16] MEDS: **NOTE PATIENT COMMENT** MISC XX SCH (08:55)
[2021-03-16] MEDS: ENOXAPARIN 40MG/0.4ML SYRINGE (J1650 PER 10MG) SC SCH (08:55)
[2021-03-16] MEDS: REMEDY PHYTOPLEX Z-GUARD PASTE 113GM TUBE (FROM STOREROOM PRODUCT) TOP SCH ×3 (08:55→21:24)
[2021-03-16 14:00] VITALS: BP 112/55
[2021-03-16] MEDS: ONDANSETRON 4 MG ORAL DISINTEGRATING TAB PO PRN (14:23)
--- NOTE | 2021-03-16 16:21 | IPNPDOC ---
Text Note Date of Service The patient was seen on 03/16/21. NOTE Subjective: No any acute events overnight. Patient complains of low back pain Objective Physical Examination General Exam: Positive: Alert, Cooperative, No Acute Distress Eye Exam: Positive: PERRLA, Conjunctiva & lids normal, EOMI; Negative: Sclera icteric ENT Exam: Positive: Atraumatic, Mucous membr. moist/pink, Pharynx Normal Neck Exam: Positive: Supple; Negative: JVD, thyromegaly Chest Exam: Positive: Clear to auscultation, Normal air movement Heart Exam: Positive: Rate Normal, Regular Rhythm, Normal S1, Normal S2; Negative: Murmurs, Rubs Abdomen Exam: Positive: Normal bowel sounds, Soft; Negative: Tenderness Extremity Exam: Negative: Clubbing, Cyanosis, Edema Skin Exam: Positive: Nl turgor and temperature; Negative: Breakdown, Lesion Neuro Exam: Positive: Normal Speech, Normal Tone, Sensation Intact Psych Exam: Positive: Oriented x 3 Assessment and plan 75 year old female from [facility] assisted living with PMH of dementia, HTN, HLD, CVA, fall and pelvic rami fracture in 2018, initially presented to ED on 03/07/21 for low back pain found to have T12 compression fracture with some retropulsion. Patient received treatment with pain management and [facility] and she was transferred to acute rehabilitation unit on 03/16/2021 T12 compression fracture/osteoporosis Continue PT OT I added vitamin D with calcium Alendronate weekly Dementia Continue donepezil Hypertension Blood pressure under control Continue lisinopril and amlodipine H/o Stroke continue ASA, statin. Leukocytosis Patient afebrile, looks nontoxic Does not have dysuria Patient normotensive not tachycardic Leukocytosis could be reactive, will continue to monitor VS,Fishbone, I+O VS, Fishbone, I+O Laboratory Tests 03/16/21 06:55 Vital Signs Date Time Temp Pulse Resp B/P (MAP) Pulse Ox O2 Delivery O2 Flow Rate FiO2 03/16/21 14:00 97.7 69 18 112/55 (74) 93 Room Air I&O- Last 24 Hours up to 6 AM 03/16/21 06:00 Intake Total 100 ml Balance 100 ml SKIP PELLETIER DO Mar 16, 2021 16:21
--- NOTE | 2021-03-16 17:07 | REP ---
INDICATION: r/o infiltrate COMPARISON: 05/24/2018. TECHNIQUE: PA/Lateral FINDINGS: Lungs: Clear, no infiltrate. Heart: Normal in size. Mediastinum: Mediastinal silhouette unremarkable. Pleural angles: Unremarkable.. Bones and soft tissues: Unremarkable. There is mild elevation of the right hemidiaphragm. IMPRESSION: No acute pulmonary disease. <Electronically signed by Jovanni Celeste > 03/16/21 [id number]
--- NOTE | 2021-03-16 17:38 | REP ---
INDICATION: immobility COMPARISON: None. TECHNIQUE: Real time compression and duplex Doppler interrogation of the bilateral lower extremity deep venous system is performed. Compression ultrasound is performed of the bilateral peroneal and posterior tibial veins. FINDINGS: Bilaterally, the common femoral, superficial femoral and popliteal veins are fully compressible with transducer pressure and demonstrate normal spontaneous and phasic flow, without evidence of deep venous thrombosis. No thrombus is seen in the bilateral visualized portions of the peroneal and posterior tibial veins. IMPRESSION: No evidence of deep venous thrombosis of the bilateral lower extremity femoral popliteal venous system. <Electronically signed by Jovanni Celeste > 03/16/21 [id number]
[2021-03-16] MEDS: DONEPEZIL 5 MG TAB PO SCH (21:22)
[2021-03-16] MEDS: ATORVASTATIN 20 MG TAB PO SCH (21:22)
[2021-03-16] MEDS: SENNA 8.6 MG TAB (SENOKOT) PO SCH (21:23)
[2021-03-16] MEDS: LIDOCAINE 5% (LIDODERM) PATCH TD SCH (21:23)
[2021-03-16 22:00] VITALS: BP 90/53
[2021-03-17 06:00] VITALS: BP 104/58
[2021-03-17] MEDS: PANTOPRAZOLE 40MG TAB (PROTONIX) PO SCH (07:54)
[2021-03-17] MEDS: ASPIRIN 81MG ENTERIC TABLET PO SCH (07:54)
[2021-03-17] MEDS: DOCUSATE SODIUM 100MG CAPSULE PO SCH ×2 (07:55→20:01)
[2021-03-17] MEDS: ACETAMINOPHEN 500 MG TAB PO SCH ×3 (07:55→20:01)
[2021-03-17] MEDS: CALCIUM/VITAMIN D 500 MG TAB PO SCH (07:55)
[2021-03-17 07:56] LABS: BASO # 0.1 10^3/uL (0.0-0.2); BASO % 0.5 % (0.0-1.0); EOS # 0.2 10^3/uL (0.0-0.5); HEMATOCRIT 45.1 % (36.0-47.0); HEMOGLOBIN 14.4 g/dl (12.0-15.5); LYMPH # 2.7 10^3/uL (1.5-5.0); LYMPH % 17.2 % (24.0-44.0); MEAN CORPUSCULAR HEMOGLOBIN 28.3 pg (27.0-33.0); MEAN CORPUSCULAR HGB CONC 31.9 g/dl (32.0-36.5); MEAN CORPUSCULAR VOLUME 88.6 fl (80.0-96.0); MONO # 1.2 10^3/uL (0.0-0.8); MONO % 7.7 % (2.0-8.0); NEUTROPHILS # 11.2 10^3/uL (1.5-8.5); PLATELET COUNT, AUTOMATED 405 10^3/uL (150-450); RED BLOOD COUNT 5.09 10^6/uL (4.00-5.40); WHITE BLOOD COUNT 15.4 10^3/uL (4.0-10.0)
[2021-03-17] MEDS: ENOXAPARIN 40MG/0.4ML SYRINGE (J1650 PER 10MG) SC SCH (07:56)
[2021-03-17] MEDS: traMADol 50 MG TAB PO SCH ×3 (07:56→18:09)
[2021-03-17] MEDS: REMEDY PHYTOPLEX Z-GUARD PASTE 113GM TUBE (FROM STOREROOM PRODUCT) TOP SCH ×3 (07:57→20:02)
[2021-03-17] MEDS: **NOTE PATIENT COMMENT** MISC XX SCH (07:57)
[2021-03-17] MEDS: amLODIPine 5 MG TAB PO SCH (08:03)
[2021-03-17 08:04] VITALS: BP 144/75
[2021-03-17 08:11] LABS: CALCIUM LEVEL 9.1 MG/DL (8.8-10.2); CREATININE FOR GFR 1.78 MG/DL (0.55-1.30); GLOMERULAR FILTRATION RATE 29.4 (>39); POTASSIUM SERUM 3.4 MEQ/L (3.5-5.1)
[2021-03-17 14:00] VITALS: BP 110/60
[2021-03-17 20:00] VITALS: BP 119/60
[2021-03-17] MEDS: LIDOCAINE 5% (LIDODERM) PATCH TD SCH (20:01)
[2021-03-17] MEDS: tiZANidine 4 MG TAB PO PRN (20:01)
[2021-03-17] MEDS: ATORVASTATIN 20 MG TAB PO SCH (20:01)
[2021-03-17] MEDS: DONEPEZIL 5 MG TAB PO SCH (20:01)
[2021-03-17] MEDS: SENNA 8.6 MG TAB (SENOKOT) PO SCH (20:01)
[2021-03-18] VITALS (7 sets, daily range): BP systolic 96–133; BP diastolic 53–67
[2021-03-18] MEDS: ALENDRONATE 35MG TABLET PO SCH (06:10)
[2021-03-18] MEDS: PANTOPRAZOLE 40MG TAB (PROTONIX) PO SCH (08:24)
[2021-03-18] MEDS: CALCIUM/VITAMIN D 500 MG TAB PO SCH (08:25)
[2021-03-18] MEDS: tiZANidine 4 MG TAB PO PRN (08:25)
[2021-03-18] MEDS: ASPIRIN 81MG ENTERIC TABLET PO SCH (08:25)
[2021-03-18] MEDS: DOCUSATE SODIUM 100MG CAPSULE PO SCH ×3 (08:25→21:00)
[2021-03-18] MEDS: ENOXAPARIN 40MG/0.4ML SYRINGE (J1650 PER 10MG) SC SCH (08:26)
[2021-03-18] MEDS: ACETAMINOPHEN 500 MG TAB PO SCH ×3 (08:26→22:12)
[2021-03-18] MEDS: REMEDY PHYTOPLEX Z-GUARD PASTE 113GM TUBE (FROM STOREROOM PRODUCT) TOP SCH ×3 (08:27→22:13)
[2021-03-18] MEDS: **NOTE PATIENT COMMENT** MISC XX SCH (08:27)
[2021-03-18] MEDS: amLODIPine 5 MG TAB PO SCH (08:34)
[2021-03-18 09:46] LABS: BASO # 0.1 10^3/uL (0.0-0.2); BASO % 0.5 % (0.0-1.0); EOS # 0.1 10^3/uL (0.0-0.5); EOS % 0.7 % (0.0-3.0); HEMATOCRIT 45.3 % (36.0-47.0); HEMOGLOBIN 14.7 g/dl (12.0-15.5); LYMPH # 2.6 10^3/uL (1.5-5.0); LYMPH % 15.4 % (24.0-44.0); MEAN CORPUSCULAR HEMOGLOBIN 28.8 pg (27.0-33.0); MEAN CORPUSCULAR HGB CONC 32.5 g/dl (32.0-36.5); MEAN CORPUSCULAR VOLUME 88.8 fl (80.0-96.0); MONO % 5.9 % (2.0-8.0); NEUTROPHILS # 12.9 10^3/uL (1.5-8.5); NEUTROPHILS % 76.8 % (36.0-66.0); PLATELET COUNT, AUTOMATED 436 10^3/uL (150-450); WHITE BLOOD COUNT 16.8 10^3/uL (4.0-10.0)
[2021-03-18] MEDS: traMADol 50 MG TAB PO SCH ×3 (09:56→17:57)
--- NOTE | 2021-03-18 12:10 | REPVR ---
PROCEDURE INFORMATION: Exam: CT Head Without Contrast Exam date and time: 03/18/2021 11:59 AM Age: 75 years old Clinical indication: Other: Stroke TECHNIQUE: Imaging protocol: Computed tomography of the head without contrast. Radiation optimization: All CT scans at this facility use at least one of these dose optimization techniques: automated exposure control; mA and/or kV adjustment per patient size (includes targeted exams where dose is matched to clinical indication); or iterative reconstruction. Other technique: STROKE PROTOCOL was implemented. COMPARISON: CT Head without contrast 05/24/2018 5:42 PM FINDINGS: Brain: A small area of chronic encephalomalacia is present in the medial left parietal convexity. A small chronic infarct is present in the right caudate head. There is a chronic lacunar infarct in the left caudate head. There is no acute intracranial hemorrhage, cerebral edema, or midline shift. Chronic microvascular ischemic changes are seen in the periventricular white matter. Age-related cerebral and cerebellar volume loss is present. Cerebral ventricles: Mild ex vacuo dilation of the lateral ventricles is noted. Paranasal sinuses: There is no acute sinusitis. Mastoid air cells: The mastoid air cells are clear. Orbital cavity: The included orbital structures are unremarkable. Vasculature: Atherosclerotic calcifications are seen involving the cavernous carotid arteries. Bones/joints: No acute fracture. Soft tissues: Unremarkable. IMPRESSION: 1. No acute intracranial abnormality. 2. Chronic findings as discussed above. 3. [facility] Stroke Program Early CT Score (ASPECTS) = 10 Electronically signed by: Alex Hastings On 03/18/2021 12:09:56 PM
[2021-03-18] MEDS ORDERED: traMADol 50 MG TAB PO PRN (12:25)
--- NOTE | 2021-03-18 13:02 | IPNPDOC ---
Text Note Date of Service The patient was seen on 03/18/21. NOTE Subjective: Patient developed a few episodes of unresponsiveness in the morning lasting for few seconds. Also patient had some hiccups with 3 episodes of small amount of vomiting. Objective: GENERAL APPEARANCE: NAD HEENT: no scleral icterus, no JVD, EOMI CARDIOVASCULAR: S1S2 LUNGS: CTA ABDOMEN: soft & not tender w palpation MUSCULOSKELETAL: no cyanosis, no swelling INTEGUMENT: no generalized pallor NEUROLOGICAL: cranial nerve function from 2-12 intact, follows commands, speech not dysarthric Assessment and plan 75 year old female from [facility] assisted living with PMH of dementia, HTN, HLD, CVA, fall and pelvic rami fracture in 2018, initially presented to ED on 03/07/21 for low back pain found to have T12 compression fracture with some retropulsion. Patient received treatment with pain management and [facility] and she was transferred to acute rehabilitation unit on 03/16/2021 Unresponsiveness Most likely secondary to vasovagal syncope versus medication side effect of tizanidine, which can be cause of orthostatic hypotension Check orthostatic vital signs every [address] head negative for acute bleeding or stroke DC tizanidine Nausea Could be secondary to tramadol We decreased the dose of tramadol T12 compression fracture/osteoporosis Continue PT OT I added vitamin D with calcium Alendronate weekly Dementia Continue donepezil Hypertension Blood pressure under control Continue lisinopril and amlodipine H/o Stroke continue ASA, statin. Leukocytosis Patient afebrile, looks nontoxic Does not have dysuria Patient normotensive not tachycardic Leukocytosis could be reactive, will continue to monitor CAROL Most likely secondary to volume depletion Encourage to drink fluid IV fluid and bolus for now Continue to monitor BMP VS,Fishbone, I+O VS, Fishbone, I+O Laboratory Tests 03/18/21 09:33 Vital Signs Date Time Temp Pulse Resp B/P (MAP) Pulse Ox O2 Delivery O2 Flow Rate FiO2 03/18/21 09:56 18 03/18/21 08:34 79 104/60 03/18/21 06:00 97.0 95 Room Air I&O- Last 24 Hours up to 6 AM 03/18/21 06:00 Intake Total 530 ml Balance 530 ml SKIP PELLETIER DO Mar 18, 2021 13:02
[2021-03-18 13:37] LABS: ALBUMIN 2.6 GM/DL (3.2-5.2); BILIRUBIN,TOTAL 0.4 MG/DL (0.2-1.0); CALCIUM LEVEL 9.9 MG/DL (8.8-10.2); CREATININE FOR GFR 1.88 MG/DL (0.55-1.30); GLOMERULAR FILTRATION RATE 27.6 (>39); MAGNESIUM LEVEL 2.3 MG/DL (1.8-2.4); POTASSIUM SERUM 3.7 MEQ/L (3.5-5.1); TOTAL PROTEIN 7.2 GM/DL (6.4-8.2)
[2021-03-18 13:41] LABS: BASO # 0.1 10^3/uL (0.0-0.2); BASO % 0.3 % (0.0-1.0); EOS % 0.1 % (0.0-3.0); HEMATOCRIT 42.5 % (36.0-47.0); HEMOGLOBIN 13.7 g/dl (12.0-15.5); LYMPH # 1.5 10^3/uL (1.5-5.0); LYMPH % 7.5 % (24.0-44.0); MEAN CORPUSCULAR HEMOGLOBIN 28.5 pg (27.0-33.0); MEAN CORPUSCULAR HGB CONC 32.2 g/dl (32.0-36.5); MEAN CORPUSCULAR VOLUME 88.4 fl (80.0-96.0); MONO # 1.3 10^3/uL (0.0-0.8); MONO % 6.7 % (2.0-8.0); NEUTROPHILS # 16.5 10^3/uL (1.5-8.5); NEUTROPHILS % 84.5 % (36.0-66.0); PLATELET COUNT, AUTOMATED 419 10^3/uL (150-450); RED BLOOD COUNT 4.81 10^6/uL (4.00-5.40); WHITE BLOOD COUNT 19.6 10^3/uL (4.0-10.0)
--- NOTE | 2021-03-18 14:17 | REP ---
INDICATION: vomiting with leukocytosis r/o infection. COMPARISON: 04/06/2009 the latest prior TECHNIQUE: Standard helical technique without the administration of intravenous or oral bowel preparatory contrast FINDINGS: There is a new partially imaged at least 9 mm size nodule in the right lung lower lobe. Limited evaluation of the liver and spleen show no gross abnormalities or significant changes from the prior exam. There is cholelithiasis. In the inferior pole of the left kidney there is a 6 mm size nonobstructing nephrolith. Kidneys are otherwise unremarkable and unchanged. The pancreas and adrenal glands are within normal limits. There is stable benign bilateral adrenal gland nodular thickening. The abdominal aorta and para-aortic regions are within normal limits and essentially unchanged. No adenopathy has developed. The bowel loops and the mesenteries are within normal limits. There is no evidence of free fluid or free air. Bone window technique throughout the examination shows a grade 4 T12 compression fracture unchanged from the thoracic spine CT of 03/07/2021. Once again, spray artifact seen arising from right hip pins. IMPRESSION: 1. There is a new partially imaged right lung nodule as described above. According to the revised Fleischner society criteria contrast-enhanced CT examination of the chest is recommended. 2. Nonobstructing left nephrolith as described above. 3. Cholelithiasis. 4. Other findings as described above. <Electronically signed by Donald Booth > 03/18/21 0685
[2021-03-18] MEDS ORDERED: NS 1,000 ML IV ONE (14:25)
--- NOTE | 2021-03-18 15:59 | IPNPDOC ---
PM&R Progress Note DATE OF SERVICE: Mar 17, 2021 Channel Development Manager Progress Note Subjective: Patient seen in therapy reporting she was having back pain and was encouraged to try taking tizanidine for her pain. REVIEW OF SYSTEMS: The following is a completed review of systems and has been reviewed. Review of systems otherwise unremarkable. PAIN: Patient self reports non-radiating back pain EYES: No recent vision changes EARS, NOSE, & THROAT: No throat pain, or dysphagia, or rhinorrhea CARDIOVASCULAR: Denies chest pain or palpitations PULMONARY: Denies shortness of breath GASTROINTESTINAL: Denies constipation/diarrhea GENITOURINARY: denies dysuria MUSCULOSKELETAL: +generalized weakness NEUROLOGICAL:denies paresthesias, +dementia HEMATOLOGICAL: denies easy bruising SKIN: denies rash PSYCHIATRIC: +confused All other review of systems found to be negative. PHYSICAL EXAMINATION: VITAL SIGNS: Please see below. GENERAL: Pleasant and cooperative. No acute distress. HEENT: PERRL. Extraocular movements intact. Clear conjunctiva CARDIOVASCULAR: Regular rate and rhythm. No murmurs, rubs, or gallops LUNGS: Clear to auscultation bilaterally. No wheezes. No rhonchi ABDOMEN: Soft, nontender, nondistended. Positive bowel sounds. NEUROLOGICAL: Alert and oriented to self and time, unable to name president. Cranial nerves II through XII grossly intact. Sensation grossly intact EXTREMITIES: 5\5 strength bilateral upper extremities. 5-\5 strength right lower extremity. 5-/5 strength in left lower extremity. ASSESSMENT:75-year-old F with past medical history of CVA, HTn, dementia, osteoporosis who presents status post T12 compression fracture with spinal cord impingement and intractable low back pain PLAN: 1. Rehab- PT/OT advance mobility and ADls, strengthen/stretch/maintain ROM all4 limbs- TLSO when out of bed 2. Ortho- T12 compression fracture with retropulsion and spinal cord compression, cont pain management and therapy, patient evaled by spine surgeon at [facility] and no need for surgery, monitor for neuro decline 3. CArdiac- hx of HRN cont BP meds -HLD cont statin -ASA for cardioprotection -medicine consulted to assist in overall management 4. Neuro- hx of dementia, but able to participate in therapy with carryover, cont aricept, monitor for delirium 5. Resp- monitor for infection 6. Pain- tylenol, tramadol, tizanidine, Lidoderm patch 7. DVT ppx- lovenox and teds -dopplers negative for DVT 8. GI ppx- protonix 9. - UA negative, voiding well 10. ID- leukocytosis- patient afebrile, participating in therapy with work-up negative so far- UA negative, CXR negative , blood cx pending 11. Dispo- TBD Allergies Coded Allergies: No Known Drug Allergies (Verified Allergy, Unknown, 03/10/21) Vital Signs Vital Signs Date Time Temp Pulse Resp B/P (MAP) Pulse Ox O2 Delivery O2 Flow Rate FiO2 03/18/21 13:52 18 03/18/21 11:40 54 119/66 (83) 03/18/21 06:00 97.0 95 Room Air Laboratory Data CBC/BMP Laboratory Tests 03/18/21 09:26 03/18/21 09:33 03/18/21 13:27 Labs 24H Laboratory Tests 2 03/17/21 21:16: Bedside Glucose (Misc Panel) 116H 03/18/21 09:26: Anion Gap 13, Glomerular Filtration Rate 27.6L, Calcium Level 9.9, Magnesium Level 2.3, Total Bilirubin 0.4, Aspartate Amino Transf (AST/SGOT) 72H, Alanine Aminotransferase (ALT/SGPT) 50, Alkaline Phosphatase 75, Total Protein 7.2, Albumin 2.6L, Albumin/Globulin Ratio 0.6L 03/18/21 09:33: Immature Granulocyte % (Auto) 0.7, Neutrophils (%) (Auto) 76.8H, Lymphocytes (%) (Auto) 15.4L, Monocytes (%) (Auto) 5.9, Eosinophils (%) (Auto) 0.7, Basophils (%) (Auto) 0.5, Neutrophils # (Auto) 12.9H, Lymphocytes # (Auto) 2.6, Monocytes # (Auto) 1.0H, Eosinophils # (Auto) 0.1, Basophils # (Auto) 0.1, Nucleated Red Blood Cells % (auto) 0.0 03/18/21 13:27: Immature Granulocyte % (Auto) 0.9, Neutrophils (%) (Auto) 84.5H, Lymphocytes (%) (Auto) 7.5L, Monocytes (%) (Auto) 6.7, Eosinophils (%) (Auto) 0.1, Basophils (%) (Auto) 0.3, Neutrophils # (Auto) 16.5H, Lymphocytes # (Auto) 1.5, Monocytes # (Auto) 1.3H, Eosinophils # (Auto) 0.0, Basophils # (Auto) 0.1, Nucleated Red Blood Cells % (auto) 0.0 Microbiology Microbiology 03/16/21 Blood Culture - Preliminary, Resulted No Growth after 48 hours. All Specime... 03/16/21 Blood Culture - Preliminary, Resulted No Growth after 48 hours. All Specime... Current Medications Current Medications Current Medications Medications (Trade) Dose Ordered Sig/Ramana Route PRN Reason Start Time Stop Time Status Last Admin Dose Admin Acetaminophen (Tylenol Tab) 1,000 mg TID PO 03/15/21 16:00 03/18/21 08:26 Alendronate Sodium (Fosamax) 35 mg Th@07 PO 03/18/21 07:00 03/18/21 06:10 Amlodipine Besylate (Norvasc) 5 mg DAILY PO 03/16/21 09:00 03/17/21 08:03 Aspirin (Ecotrin) 81 mg DAILY PO 03/16/21 09:00 03/18/21 08:25 Atorvastatin Calcium (Lipitor) 40 mg QHS PO 03/15/21 21:00 03/17/21 20:01 Calcium/Vitamin D (Oscal D) 1,000 mg DAILY PO 03/17/21 09:00 03/18/21 08:25 Docusate Sodium (Colace) 100 mg BID PO 03/15/21 21:00 03/17/21 20:01 Donepezil HCl (AriCEPT) 10 mg QHS PO 03/15/21 21:00 03/17/21 20:01 Enoxaparin Sodium (Lovenox) 40 mg DAILY SC 03/16/21 09:00 03/18/21 13:20 DC 03/18/21 08:26 Home Med (Home Med List Complete!) ASDIRECTED XX 03/15/21 14:55 03/15/21 15:02 DC Lidocaine (Lidoderm Patch) 1 patch QHS TD 03/15/21 21:00 03/17/21 20:01 Lisinopril (Prinivil) 10 mg BID PO 03/15/21 21:00 03/18/21 13:20 DC 03/17/21 20:02 Non-Formulary Medication ( See Comment Field Below ) REMOVE LIDODERM PATCH DAILY XX 03/16/21 09:00 03/18/21 08:27 Ondansetron HCl (Zofran Odt) 4 mg Q6HP PRN PO NAUSEA OR VOMITING 03/16/21 14:20 03/16/21 14:23 Pantoprazole Sodium (Protonix) 40 mg DAILY PO 03/16/21 09:00 03/18/21 08:24 Polyethylene Glycol (Miralax) 1 pkt DAILY PRN PO CONSTIPATION 03/15/21 13:35 03/17/21 07:56 Senna (Senokot) 1 tab QHS PO 03/15/21 21:00 03/17/21 20:01 Sodium Chloride 1,000 ml @ 75 mls/hr [id number] IV 03/18/21 13:20 Tizanidine HCl (Zanaflex) 2 mg Q8HP PRN PO BACK PAIN 03/15/21 13:35 03/18/21 12:22 DC 03/18/21 08:25 Tramadol HCl (Ultram) 25 mg Q12HP PRN PO MODERATE PAIN (PS 5-7) 03/18/21 12:25 Tramadol HCl (Ultram) 25 mg TID@0800,1300,1800 PO 03/18/21 13:00 03/18/21 13:52 Tramadol HCl (Ultram) 50 mg Q12HP PRN PO MODERATE PAIN (PS 5-7) 03/15/21 13:35 03/18/21 12:22 DC 03/18/21 04:53 Tramadol HCl (Ultram) 50 mg TID@0800,1300,1800 PO 03/15/21 18:00 03/18/21 12:22 DC 03/18/21 09:56 BERNARDO CORRIGAN MD Mar 18, 2021 15:59
--- NOTE | 2021-03-18 16:07 | IPNPDOC ---
PM&R Progress Note DATE OF SERVICE: Mar 18, 2021 [employer] Progress Note Subjective: Patient seen in her room reporting she had no cough or pain, but felt nauseous. She reports she was able to participate in therapy today. She had an episode earlier in the day when she was unresponsive for a few seconds, but able to rouse with sternal rub, vitals stable, CTH negative. Most likely due to tizanidine which has been d/c'd. REVIEW OF SYSTEMS: The following is a completed review of systems and has been reviewed. Review of systems otherwise unremarkable. PAIN: Patient self reports non-radiating back pain EYES: No recent vision changes EARS, NOSE, & THROAT: No throat pain, or dysphagia, or rhinorrhea CARDIOVASCULAR: Denies chest pain or palpitations PULMONARY: Denies shortness of breath GASTROINTESTINAL: Denies constipation/diarrhea GENITOURINARY: denies dysuria MUSCULOSKELETAL: +generalized weakness NEUROLOGICAL:denies paresthesias, +dementia HEMATOLOGICAL: denies easy bruising SKIN: denies rash PSYCHIATRIC: +confused All other review of systems found to be negative. PHYSICAL EXAMINATION: VITAL SIGNS: Please see below. GENERAL: Pleasant and cooperative. No acute distress. HEENT: PERRL. Extraocular movements intact. Clear conjunctiva CARDIOVASCULAR: Regular rate and rhythm. No murmurs, rubs, or gallops LUNGS: Clear to auscultation bilaterally. No wheezes. No rhonchi ABDOMEN: Soft, nontender, nondistended. Positive bowel sounds. NEUROLOGICAL: Alert and oriented to self and time, unable to name president. Cranial nerves II through XII grossly intact. Sensation grossly intact EXTREMITIES: 5\5 strength bilateral upper extremities. 5-\5 strength right lower extremity. 5-/5 strength in left lower extremity. ASSESSMENT:75-year-old F with past medical history of CVA, HTn, dementia, ost eoporosis who presents status post T12 compression fracture with spinal cord impingement and intractable low back pain PLAN: 1. Rehab- PT/OT advance mobility and ADls, strengthen/stretch/maintain ROM all4 limbs- LSO when out of bed 2. Ortho- T12 compression fracture with retropulsion and spinal cord compression, cont pain management and therapy, patient evaled by spine surgeon at [facility] and no need for surgery, monitor for neuro decline 3. CArdiac- hx of HTN cont BP meds -HLD cont statin -ASA for cardioprotection -medicine consulted to assist in overall management 4. Neuro- hx of dementia, but able to participate in therapy with carryover, cont aricept, monitor for delirium 5. Resp- monitor for infection 6. Pain- tylenol, tramadol (dose lowered due to lethargy and episode of unrespo nsiveness today and tizanidine d/c'd for same reason), cont Lidoderm patch 7. DVT ppx- lovenox and teds -dopplers negative for DVT 8. GI ppx- protonix 9. - UA negative, voiding well 10. ID- leukocytosis likely due to dehydration, patient does not appear toxic, continues to be afebrile and participating in therapy with infectious work-up negative- Ucx negative, CXR negative , blood cx pending -CT abdomen pelvis ordered showing lung nodule, will f/u with CT chest- may need pulm consult, low suspicion for PNA as patient not coughing -Lactic acid level added onto today's lab -patient receiving fluids 11. Renal- CAROL, started on IVF, hospitalist following and renal consulted -lisinopril d/c'd 12. Dispo- TBD Allergies Coded Allergies: No Known Drug Allergies (Verified Allergy, Unknown, 03/10/21) Vital Signs Vital Signs Date Time Temp Pulse Resp B/P (MAP) Pulse Ox O2 Delivery O2 Flow Rate FiO2 03/18/21 13:52 18 03/18/21 11:40 54 119/66 (83) 03/18/21 06:00 97.0 95 Room Air Laboratory Data CBC/BMP Laboratory Tests 03/18/21 09:26 03/18/21 09:33 03/18/21 13:27 Labs 24H Laboratory Tests 2 03/17/21 21:16: Bedside Glucose (Misc Panel) 116H 03/18/21 09:26: Anion Gap 13, Glomerular Filtration Rate 27.6L, Calcium Level 9.9, Magnesium Level 2.3, Total Bilirubin 0.4, Aspartate Amino Transf (AST/SGOT) 72H, Alanine Aminotransferase (ALT/SGPT) 50, Alkaline Phosphatase 75, Total Protein 7.2, Albumin 2.6L, Albumin/Globulin Ratio 0.6L 03/18/21 09:33: Immature Granulocyte % (Auto) 0.7, Neutrophils (%) (Auto) 76.8H, Lymphocytes (%) (Auto) 15.4L, Monocytes (%) (Auto) 5.9, Eosinophils (%) (Auto) 0.7, Basophils (%) (Auto) 0.5, Neutrophils # (Auto) 12.9H, Lymphocytes # (Auto) 2.6, Monocytes # (Auto) 1.0H, Eosinophils # (Auto) 0.1, Basophils # (Auto) 0.1, Nucleated Red Blood Cells % (auto) 0.0 03/18/21 13:27: Immature Granulocyte % (Auto) 0.9, Neutrophils (%) (Auto) 84.5H, Lymphocytes (%) (Auto) 7.5L, Monocytes (%) (Auto) 6.7, Eosinophils (%) (Auto) 0.1, Basophils (%) (Auto) 0.3, Neutrophils # (Auto) 16.5H, Lymphocytes # (Auto) 1.5, Monocytes # (Auto) 1.3H, Eosinophils # (Auto) 0.0, Basophils # (Auto) 0.1, Nucleated Red Blood Cells % (auto) 0.0 Microbiology Microbiology 03/16/21 Blood Culture - Preliminary, Resulted No Growth after 48 hours. All Specime... 03/16/21 Blood Culture - Preliminary, Resulted No Growth after 48 hours. All Specime... Current Medications Current Medications Current Medications Medications (Trade) Dose Ordered Sig/Ramana Route PRN Reason Start Time Stop Time Status Last Admin Dose Admin Acetaminophen (Tylenol Tab) 1,000 mg TID PO 03/15/21 16:00 03/18/21 08:26 Alendronate Sodium (Fosamax) 35 mg Th@07 PO 03/18/21 07:00 03/18/21 06:10 Amlodipine Besylate (Norvasc) 5 mg DAILY PO 03/16/21 09:00 03/17/21 08:03 Aspirin (Ecotrin) 81 mg DAILY PO 03/16/21 09:00 03/18/21 08:25 Atorvastatin Calcium (Lipitor) 40 mg QHS PO 03/15/21 21:00 03/17/21 20:01 Calcium/Vitamin D (Oscal D) 1,000 mg DAILY PO 03/17/21 09:00 03/18/21 08:25 Docusate Sodium (Colace) 100 mg BID PO 03/15/21 21:00 03/17/21 20:01 Donepezil HCl (AriCEPT) 10 mg QHS PO 03/15/21 21:00 03/17/21 20:01 Enoxaparin Sodium (Lovenox) 40 mg DAILY SC 03/16/21 09:00 03/18/21 13:20 DC 03/18/21 08:26 Home Med (Home Med List Complete!) ASDIRECTED XX 03/15/21 14:55 03/15/21 15:02 DC Lidocaine (Lidoderm Patch) 1 patch QHS TD 03/15/21 21:00 03/17/21 20:01 Lisinopril (Prinivil) 10 mg BID PO 03/15/21 21:00 03/18/21 13:20 DC 03/17/21 20:02 Non-Formulary Medication ( See Comment Field Below ) REMOVE LIDODERM PATCH DAILY XX 03/16/21 09:00 03/18/21 08:27 Ondansetron HCl (Zofran Odt) 4 mg Q6HP PRN PO NAUSEA OR VOMITING 03/16/21 14:20 03/16/21 14:23 Pantoprazole Sodium (Protonix) 40 mg DAILY PO 03/16/21 09:00 03/18/21 08:24 Polyethylene Glycol (Miralax) 1 pkt DAILY PRN PO CONSTIPATION 03/15/21 13:35 03/17/21 07:56 Senna (Senokot) 1 tab QHS PO 03/15/21 21:00 03/17/21 20:01 Sodium Chloride 1,000 ml @ 75 mls/hr [id number] IV 03/18/21 13:20 Tizanidine HCl (Zanaflex) 2 mg Q8HP PRN PO BACK PAIN 03/15/21 13:35 03/18/21 12:22 DC 03/18/21 08:25 Tramadol HCl (Ultram) 25 mg Q12HP PRN PO MODERATE PAIN (PS 5-7) 03/18/21 12:25 Tramadol HCl (Ultram) 25 mg TID@0800,1300,1800 PO 03/18/21 13:00 03/18/21 13:52 Tramadol HCl (Ultram) 50 mg Q12HP PRN PO MODERATE PAIN (PS 5-7) 03/15/21 13:35 03/18/21 12:22 DC 03/18/21 04:53 Tramadol HCl (Ultram) 50 mg TID@0800,1300,1800 PO 03/15/21 18:00 03/18/21 12:22 DC 03/18/21 09:56 BERNARDO CORRIGAN MD Mar 18, 2021 16:06
--- NOTE | 2021-03-18 16:26 | REP ---
INDICATION: r/o infiltrate. COMPARISON: 03/23/2010. TECHNIQUE: CT chest performed without the use of intravenous contrast. Sagittal and coronal reconstruction images are performed. FINDINGS: Lungs: There is mild to moderate diffuse emphysematous and fibrotic change. Two subcentimeter nodular densities in the right lower lobe inferiorly and laterally are stable compared to the prior exam. A subcentimeter nodular density posterolaterally in the left lower lobe is stable. There is no acute infiltrate. Mediastinum: No gross adenopathy. Cadence: No gross adenopathy. Axilla: No gross adenopathy. Pleura: No effusion. Heart: Not enlarged. Thoracic aorta: No aneurysm. Upper abdominal structures: There is a small hiatal hernia. There are small gallstones in the gallbladder. Visualized osseous structures: The compression fracture of T12 has increased since the prior MRI of 03/10/2021. The central height of T12 was previously 12 mm on that exam. Currently it is 6 mm. There is some anterior displacement of the anterior margin of the T12 vertebral body with respect to T11. There is increased retropulsion into the spinal canal, approximately 8 mm. The spinal canal at that level measures about 8-9 mm in AP dimension raising concern for at least mild cord compression. No new fracture is seen. IMPRESSION: Stable chronic lung findings with no acute infiltrate or suspicious nodule. Critical Findings: The compression fracture of T12 as increased since the prior MRI of 03/10/2021. There is increased retropulsion, approximately 8 mm. Possible mild cord compression at the T12 level. The critical information above was relayed directly by me by telephone to BERNARDO CORRIGAN on 03/18/2021 at 4:19 pm with readback verification. <Electronically signed by Jovanni Celeste > 03/18/21 [id number]
[2021-03-18] MEDS: NS 1,000 ML IV SCH (16:35)
[2021-03-18 19:56] LABS: CALCIUM LEVEL 9.5 MG/DL (8.8-10.2); CREATININE FOR GFR 1.88 MG/DL (0.55-1.30); GLOMERULAR FILTRATION RATE 27.6 (>39); POTASSIUM SERUM 3.7 MEQ/L (3.5-5.1)
[2021-03-18] MEDS: SENNA 8.6 MG TAB (SENOKOT) PO SCH (21:00)
--- NOTE | 2021-03-18 21:12 | CR ---
CONSULTATION DATE: 03/18/2021 REQUESTING PHYSICIAN: Heather Alicea M.D. CONSULTING PHYSICIAN: Calin Patten M.D. REASON FOR CONSULTATION: Acute kidney injury. HISTORY OF PRESENT ILLNESS: Mrs. Dennison is a 75-year-old female with a known history of dementia, hypertension, hyperlipidemia, prior stroke, and fall with a pelvic fracture in 2017. She presented to the Emergency Room at [facility] on March 07 with severe back pain and was found to have a compression fracture of T-12 vertebra with retropulsion of fracture parts into the spinal canal resulting mild to moderate central spinal stenosis. She was transferred to [facility] in [place] and was not felt to be in need for any surgery. It was felt to be non operable. The patient was discharged to home, however she had inability to ambulate and severe back pain due to which she came back to the Emergency Room on March 13. Finally she is now admitted to the acute rehab unit. The patient is able to talk, however does not seem to be a very good historian. She has multiple chronic medical problems. PAST MEDICAL AND SURGICAL HISTORY: The patient's past medical and surgical history is significant for: 1. History of dementia. 2. History of hyperlipidemia. 3. History of hypertension. 4. Osteoporosis. 5. History of prior stroke in 2018. 6. History of fall and pelvic fracture in 2018. 7. And now a history of T-12 compression fracture. PAST SURGICAL HISTORY: The patient's past surgical history is significant for right hip surgery due to fracture in 2007. MEDICATIONS: Her home medications included: 1. Amlodipine 5 mg daily. 2. Aspirin 81 mg daily. 3. Atorvastatin 40 mg daily. 4. Donepezil 10 mg daily. 5. Lisinopril 10 mg twice daily. 6. Tylenol 500 mg every 8 hours. 7. Hydrocodone as needed for pain. ALLERGIES: She has no known drug allergies. CURRENT MEDICATIONS IN THE HOSPITAL: 1. Normal saline 75 mL per hour. 2. Tramadol 25 mg three times daily. 3. Fosamax 35 mg daily. 4. Calcium with vitamin D 1,000 mg daily. 5. Zofran 4 mg q. 6 hours p.r.n. for nausea. 6. Aspirin 81 mg daily. 7. Amlodipine 5 mg daily. 8. Protonix 40 mg daily. 9. Donepezil 10 mg daily. 10. Lidoderm patch at bedtime. 11. Atorvastatin 40 mg daily. 12. Senokot one tablet at bedtime. 13. Colace 100 mg twice daily. 14. She is also getting Tylenol 1,000 mg as needed three times daily. 15. Miralax as needed for constipation. FAMILY HISTORY: Noncontributory for this admission. PERSONAL AND SOCIAL HISTORY: The patient is living in assisted living. She has no history of tobacco, alcohol or drug use. REVIEW OF SYSTEMS: Constitutional: The patient denies any fever or chills. She denies any headache. She is not a great historian, however she was able to answer simple questions. . Ears, Nose and Throat: Unremarkable. Cardiovascular System: Negative for dyspnea, chest pain or leg edema. Respiratory System: Negative for cough or hemoptysis. GI System: Negative for vomiting or diarrhea. System: Negative for dysuria or hematuria. Endocrine System: Negative for diabetes or thyroid problems. 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 Psychosocial System: Significant for dementia. Neurological System: Significant for prior stroke and unsteady gait. Skin: Negative for rashes or ulcers. PHYSICAL EXAMINATION: VITAL SIGNS: Temperature 96.9 degrees Fahrenheit, heart rate 78 per minute, respiratory rate 18 per minute, blood pressure earlier was as low as 96/60 mm of mercury and most recent one 133/67 mm of mercury with oxygen saturation 98% on room air. GENERAL APPEARANCE: The patient is laying flat in her bed. HEENT: Her head is atraumatic. She has no oral thrush or ulcers. NECK: Supple and without any JVD or thyroid enlargement. HEART: Regular. LUNGS: Clear to auscultation. ABDOMEN: Soft and bowel sounds are normal. No palpable organomegaly. EXTREMITIES: Without any cyanosis or clubbing. SKIN: Dry and without any rash or ulcers. NEUROLOGICAL: She is awake and able to answer simple questions. LABORATORY DATA: Today's labs show a WBC count of 19.6, hemoglobin 13.7 and hematocrit 42.5. Sodium 136, potassium 3.7, chloride 103, CO2 20, BUN 79 and creatinine 1.88. Glucose 105 and calcium 9.9. Important to note that on March 16 her BUN was only 49 and creatinine 0.83. Her albumin level is 2.5. Urinalysis done on March showed only 1 WBC and RBC with 1+ protein and trace of ketones. IMAGING DATA: The patient had a CT scan of the chest done today which showed the compression fracture of T-12 vertebra and it has increased since the prior MRI of March 10. There is increased retropulsion approximately 8 mm. Possible mild cord compression at the T-[address] scan of the abdomen and pelvis was also done today which showed right lung nodule, non-obstructing left kidney stone and gallstones. Head CT scan did not show any fluid intracranial abnormality. PROBLEMS: 1. Acute kidney injury - The patient seems to have pre-renal azotemia with a disproportionate elevation in BUN, however compared to March 16, both her BUN and creatinine have increased significantly. CT scan of abdomen and pelvis done today was negative for hydronephrosis. I feel that she can be aggressively hydrated as she looks quite dehydrated on clinical exam. I would recommend to increase her IV fluid to 125 mL per hour and also encourage the patient to increase her oral intake. 2. Leukocytosis she has unexplained leukocytosis without any evidence of infection on the CT scan of the chest, abdomen and pelvis today. A urinalysis was negative and blood cultures have been negative so far. Thank you for involving me in the care of your patient. I will follow her along with you.
[2021-03-18] MEDS: ATORVASTATIN 20 MG TAB PO SCH (22:11)
[2021-03-18] MEDS: DONEPEZIL 5 MG TAB PO SCH (22:12)
[2021-03-18] MEDS: LIDOCAINE 5% (LIDODERM) PATCH TD SCH (22:12)
[2021-03-19 01:29] LABS: CALCIUM LEVEL 9.2 MG/DL (8.8-10.2); CREATININE FOR GFR 1.49 MG/DL (0.55-1.30); GLOMERULAR FILTRATION RATE 36.1 (>39); POTASSIUM SERUM 3.2 MEQ/L (3.5-5.1)
[2021-03-19 06:00] VITALS: BP_SYST 133; BP_SYST 134; BP_SYST 140; BP_SYST 142; BP_DIAS 64; BP_DIAS 65; BP_DIAS 80
[2021-03-19] MEDS: NS 1,000 ML IV SCH ×4 (06:28→21:40)
[2021-03-19] MEDS: PANTOPRAZOLE 40MG TAB (PROTONIX) PO SCH (08:05)
[2021-03-19] MEDS: DOCUSATE SODIUM 100MG CAPSULE PO SCH ×2 (08:05→21:39)
[2021-03-19] MEDS: ASPIRIN 81MG ENTERIC TABLET PO SCH (08:05)
[2021-03-19] MEDS: CALCIUM/VITAMIN D 500 MG TAB PO SCH (08:05)
[2021-03-19] MEDS: ACETAMINOPHEN 500 MG TAB PO SCH ×3 (08:06→21:39)
[2021-03-19] MEDS: traMADol 50 MG TAB PO SCH ×3 (08:06→18:12)
[2021-03-19 08:09] LABS: BASO # 0.1 10^3/uL (0.0-0.2); BASO % 0.4 % (0.0-1.0); EOS # 0.1 10^3/uL (0.0-0.5); EOS % 0.7 % (0.0-3.0); HEMATOCRIT 41.8 % (36.0-47.0); HEMOGLOBIN 13.8 g/dl (12.0-15.5); LYMPH # 2.2 10^3/uL (1.5-5.0); LYMPH % 14.4 % (24.0-44.0); MEAN CORPUSCULAR HEMOGLOBIN 28.8 pg (27.0-33.0); MEAN CORPUSCULAR VOLUME 87.3 fl (80.0-96.0); MONO # 1.2 10^3/uL (0.0-0.8); MONO % 8.1 % (2.0-8.0); NEUTROPHILS # 11.5 10^3/uL (1.5-8.5); NEUTROPHILS % 75.7 % (36.0-66.0); PLATELET COUNT, AUTOMATED 394 10^3/uL (150-450); RED BLOOD COUNT 4.79 10^6/uL (4.00-5.40); WHITE BLOOD COUNT 15.1 10^3/uL (4.0-10.0)
[2021-03-19] MEDS: **NOTE PATIENT COMMENT** MISC XX SCH (08:10)
[2021-03-19] MEDS: amLODIPine 5 MG TAB PO SCH (08:10)
[2021-03-19] MEDS: REMEDY PHYTOPLEX Z-GUARD PASTE 113GM TUBE (FROM STOREROOM PRODUCT) TOP SCH ×3 (08:11→21:40)
[2021-03-19 08:23] LABS: BLOOD UREA NITROGEN 64 MG/DL (7-18); CARBON DIOXIDE LEVEL 23 MEQ/L (21-32); CHLORIDE LEVEL 110 MEQ/L (98-107); CREATININE FOR GFR 0.95 MG/DL (0.55-1.30); GLOMERULAR FILTRATION RATE > 60.0 (>39); GLUCOSE, FASTING 82 MG/DL (70-100); POTASSIUM SERUM 3.4 MEQ/L (3.5-5.1); SODIUM LEVEL 140 MEQ/L (136-145)
[2021-03-19] MEDS ORDERED: POTASSIUM CHLORIDE 10MEQ SR TABLET PO ONE (11:10)
[2021-03-19 12:00] VITALS: BP_SYST 131; BP_SYST 136; BP_DIAS 65; BP_DIAS 74; BP_DIAS 78
--- NOTE | 2021-03-19 13:47 | IPNPDOC ---
PM&R Progress Note DATE OF SERVICE: Mar 19, 2021 [employer] Manager [employer] Progress Note Subjective: Patient seen in her room complaining of minimal back pain. She states her legs still do not feel any weaker, that she has had incontinence for quite some time and that she is not interested in any further surgical intervention for her back. She continues to decline to use the TLSO brace. REVIEW OF SYSTEMS: The following is a completed review of systems and has been reviewed. Review of systems otherwise unremarkable. PAIN: Patient self reports non-radiating back pain EYES: No recent vision changes EARS, NOSE, & THROAT: No throat pain, or dysphagia, or rhinorrhea CARDIOVASCULAR: Denies chest pain or palpitations PULMONARY: Denies shortness of breath GASTROINTESTINAL: Denies constipation/diarrhea GENITOURINARY: denies dysuria MUSCULOSKELETAL: +generalized weakness NEUROLOGICAL:denies paresthesias, +dementia HEMATOLOGICAL: denies easy bruising SKIN: denies rash PSYCHIATRIC: +confused All other review of systems found to be negative. PHYSICAL EXAMINATION: VITAL SIGNS: Please see below. GENERAL: Pleasant and cooperative. No acute distress. HEENT: PERRL. Extraocular movements intact. Clear conjunctiva CARDIOVASCULAR: Regular rate and rhythm. No murmurs, rubs, or gallops LUNGS: Clear to auscultation bilaterally. No wheezes. No rhonchi ABDOMEN: Soft, nontender, nondistended. Positive bowel sounds. no RUQ TTP NEUROLOGICAL: Alert and oriented to self and time, unable to name president. Cranial nerves II through XII grossly intact. Sensation grossly intact EXTREMITIES: 5\5 strength bilateral upper extremities. 5-\5 strength right lower extremity. 5-/5 strength in left lower extremity. ASSESSMENT:75-year-old F with past medical history of CVA, HTn, dementia, osteoporosis who presents status post T12 compression fracture with spinal cord impingement and intractable low back pain PLAN: 1. Rehab- PT/OT advance mobility and ADls, strengthen/stretch/maintain ROM all4 limbs- LSO when out of bed (patient refuses TLSO brace) 2. Ortho- T12 compression fracture with retropulsion and spinal cord compress ion, cont pain management and therapy, patient evaled by spine surgeon at [facility] and no need for surgery, monitor for neuro decline -recent CT abd/pelvis showing increased T12 retropulsion, Dr. Khanh-Pack reviewed imaging and given no new weakness on exam does not recommend surgical intervention- patient also does not wish to have any surgery, she is ambulating well in therapy 3. CArdiac- hx of HTN cont BP meds -HLD cont statin -ASA for cardioprotection -medicine consulted to assist in overall management 4. Neuro- hx of dementia, but able to participate in therapy with carryover, cont aricept, monitor for delirium 5. Resp- monitor for infection 6. Pain- tylenol, tramadol (dose lowered due to lethargy and episode of unresponsiveness today and tizanidine d/c'd for same reason), cont Lidoderm patch 7. DVT ppx- lovenox and teds -dopplers negative for DVT 8. GI ppx- protonix - CT abd/pelvis + cholelithiasis but patient does not have RUQ TTP 9. - UA negative, voiding well 10. ID- leukocytosis likely due to dehydration, patient does not appear toxic, continues to be afebrile and participating in therapy with infectious work-up negative- Ucx negative, CXR negative , blood cx pending -CT abdomen pelvis ordered showing lung nodule which per discussion with radiologist is old -CT chest showing no infiltrate -Lactic acid level WNL -patient receiving fluids 11. Renal- CAROL, started on IVF, hospitalist following and renal consulted- improving -lisinopril d/c'd 12. Dispo- TBD Allergies Coded Allergies: No Known Drug Allergies (Verified Allergy, Unknown, 03/10/21) Vital Signs Vital Signs Date Time Temp Pulse Resp B/P (MAP) Pulse Ox O2 Delivery O2 Flow Rate FiO2 03/19/21 12:49 18 03/19/21 08:10 88 137/81 03/19/21 06:00 96.8 95 Room Air Laboratory Data CBC/BMP Laboratory Tests 03/18/21 18:46 03/19/21 00:54 03/19/21 07:46 Labs 24H Laboratory Tests 2 03/18/21 18:46: Anion Gap 9, Glomerular Filtration Rate 27.6L, Lactic Acid Level 1.3, Calcium Level 9.5 03/19/21 00:54: Anion Gap 13, Glomerular Filtration Rate 36.1L, Calcium Level 9.2 03/19/21 07:46: Anion Gap 7L, Glomerular Filtration Rate > 60.0, Calcium Level 9.0, Immature Granulocyte % (Auto) 0.7, Neutrophils (%) (Auto) 75.7H, Lymphocytes (%) (Auto) 14.4L, Monocytes (%) (Auto) 8.1H, Eosinophils (%) (Auto) 0.7, Basophils (%) (Auto) 0.4, Neutrophils # (Auto) 11.5H, Lymphocytes # (Auto) 2.2, Monocytes # (Auto) 1.2H, Eosinophils # (Auto) 0.1, Basophils # (Auto) 0.1, Nucleated Red Blood Cells % (auto) 0.0 Microbiology Microbiology 03/16/21 Blood Culture - Preliminary, Resulted No Growth after 72 hours. All specime... 03/16/21 Blood Culture - Preliminary, Resulted No Growth after 72 hours. All specime... Current Medications Current Medications Current Medications Medications (Trade) Dose Ordered Sig/Ramana Route PRN Reason Start Time Stop Time Status Last Admin Dose Admin Acetaminophen (Tylenol Tab) 1,000 mg TID PO 03/15/21 16:00 03/19/21 08:06 Alendronate Sodium (Fosamax) 35 mg Th@07 PO 03/18/21 07:00 03/18/21 06:10 Amlodipine Besylate (Norvasc) 5 mg DAILY PO 03/16/21 09:00 03/19/21 08:10 Aspirin (Ecotrin) 81 mg DAILY PO 03/16/21 09:00 03/19/21 08:05 Atorvastatin Calcium (Lipitor) 40 mg QHS PO 03/15/21 21:00 03/18/21 22:11 Calcium/Vitamin D (Oscal D) 1,000 mg DAILY PO 03/17/21 09:00 03/19/21 08:05 Docusate Sodium (Colace) 100 mg BID PO 03/15/21 21:00 03/19/21 08:05 Donepezil HCl (AriCEPT) 10 mg QHS PO 03/15/21 21:00 03/18/21 22:12 Enoxaparin Sodium (Lovenox) 40 mg DAILY SC 03/16/21 09:00 03/18/21 13:20 DC 03/18/21 08:26 Home Med (Home Med List Complete!) ASDIRECTED XX 03/15/21 14:55 03/15/21 15:02 DC Lidocaine (Lidoderm Patch) 1 patch QHS TD 03/15/21 21:00 03/18/21 22:12 Lisinopril (Prinivil) 10 mg BID PO 03/15/21 21:00 03/18/21 13:20 DC 03/17/21 20:02 Non-Formulary Medication ( See Comment Field Below ) REMOVE LIDODERM PATCH DAILY XX 03/16/21 09:00 03/19/21 08:10 Ondansetron HCl (Zofran Odt) 4 mg Q6HP PRN PO NAUSEA OR VOMITING 03/16/21 14:20 03/16/21 14:23 Pantoprazole Sodium (Protonix) 40 mg DAILY PO 03/16/21 09:00 03/19/21 08:05 Polyethylene Glycol (Miralax) 1 pkt DAILY PRN PO CONSTIPATION 03/15/21 13:35 03/17/21 07:56 Senna (Senokot) 1 tab QHS PO 03/15/21 21:00 03/17/21 20:01 Sodium Chloride 1,000 ml @ 125 mls/hr Q8H IV 03/18/21 13:20 03/19/21 06:28 Tizanidine HCl (Zanaflex) 2 mg Q8HP PRN PO BACK PAIN 03/15/21 13:35 03/18/21 12:22 DC 03/18/21 08:25 Tramadol HCl (Ultram) 25 mg Q12HP PRN PO MODERATE PAIN (PS 5-7) 03/18/21 12:25 03/19/21 04:03 Tramadol HCl (Ultram) 25 mg TID@0800,1300,1800 PO 03/18/21 13:00 03/19/21 12:49 Tramadol HCl (Ultram) 50 mg Q12HP PRN PO MODERATE PAIN (PS 5-7) 03/15/21 13:35 03/18/21 12:22 DC 03/18/21 04:53 Tramadol HCl (Ultram) 50 mg TID@0800,1300,1800 PO 03/15/21 18:00 03/18/21 12:22 DC 03/18/21 09:56 BERNARDO CORRIGAN MD Mar 19, 2021 13:47
[2021-03-19 14:00] VITALS: BP 137/63
[2021-03-19 17:27] LABS: BLOOD UREA NITROGEN 55 MG/DL (7-18); CALCIUM LEVEL 9.5 MG/DL (8.8-10.2); CARBON DIOXIDE LEVEL 21 MEQ/L (21-32); CHLORIDE LEVEL 109 MEQ/L (98-107); CREATININE FOR GFR 0.88 MG/DL (0.55-1.30); GLOMERULAR FILTRATION RATE > 60.0 (>39); GLUCOSE, FASTING 82 MG/DL (70-100); POTASSIUM SERUM 4.6 MEQ/L (3.5-5.1); SODIUM LEVEL 141 MEQ/L (136-145)
--- NOTE | 2021-03-19 19:16 | ECGEPIP ---
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
[2021-03-19 20:00] VITALS: BP 197/87
[2021-03-19 20:25] LABS: BLOOD UREA NITROGEN 48 MG/DL (7-18); CALCIUM LEVEL 9.2 MG/DL (8.8-10.2); CARBON DIOXIDE LEVEL 23 MEQ/L (21-32); CHLORIDE LEVEL 112 MEQ/L (98-107); CREATININE FOR GFR 0.75 MG/DL (0.55-1.30); GLOMERULAR FILTRATION RATE > 60.0 (>39); GLUCOSE, FASTING 72 MG/DL (70-100); POTASSIUM SERUM 4.6 MEQ/L (3.5-5.1); SODIUM LEVEL 142 MEQ/L (136-145)
[2021-03-19] MEDS: LIDOCAINE 5% (LIDODERM) PATCH TD SCH (21:38)
[2021-03-19] MEDS: DONEPEZIL 5 MG TAB PO SCH (21:38)
[2021-03-19] MEDS: SENNA 8.6 MG TAB (SENOKOT) PO SCH (21:38)
[2021-03-19] MEDS: ATORVASTATIN 20 MG TAB PO SCH (21:39)
--- NOTE | 2021-03-19 21:59 | IPN ---
PROGRESS NOTE DATE: 03/19/2021 SUBJECTIVE: Ms. Dennison is seen this morning on her bedside. She is laying in her bed. She has back pain, but denies any other complaints at present. She has no dyspnea, chest pain, nausea or vomiting. PHYSICAL EXAMINATION: VITALS: Temperature 97.4 degrees Fahrenheit, heart rate 88 per minute, respiratory rate 18 per minute, blood pressure 136/65 mmHg, oxygen saturation 99%. HEENT: Head is atraumatic. Neck is supple and without JVD or thyroid enlargement. LUNGS: Clear to auscultation. HEART: Sounds are regular. ABDOMEN: Soft and nontender. Bowel sounds normal. EXTREMITIES: Without any cyanosis or clubbing. NEUROLOGIC: She is awake and able to answer simple questions. LABORATORY STUDIES: Today's labs show WBC 15.1, hemoglobin 13.8, hematocrit 41.8. Sodium 142, potassium 4.6, BUN down to 48 and creatinine 0.75, glucose 72 and calcium 9.2. PROBLEMS: 1. Acute kidney injury: Kidney function has improved and her acute kidney injury was mostly related to dehydration. She is still receiving I.V. fluid at 75 mL per hour. Patient should be encouraged to increase her oral fluid intake. 2. Pain in her back: She has a fracture of her vertebra causing severe pain. At this point, her pain is being managed with medications and physical therapy is working with her.
[2021-03-20] MEDS: NS 1,000 ML IV SCH (05:08)
[2021-03-20 05:37] VITALS: BP 136/66
[2021-03-20] MEDS: traMADol 50 MG TAB PO SCH ×3 (07:08→17:41)
[2021-03-20 07:52] LABS: BLOOD UREA NITROGEN 28 MG/DL (7-18); CALCIUM LEVEL 8.5 MG/DL (8.8-10.2); CARBON DIOXIDE LEVEL 23 MEQ/L (21-32); CHLORIDE LEVEL 114 MEQ/L (98-107); CREATININE FOR GFR 0.68 MG/DL (0.55-1.30); GLOMERULAR FILTRATION RATE > 60.0 (>39); GLUCOSE, FASTING 82 MG/DL (70-100); POTASSIUM SERUM 3.8 MEQ/L (3.5-5.1); SODIUM LEVEL 144 MEQ/L (136-145)
[2021-03-20] MEDS: CALCIUM/VITAMIN D 500 MG TAB PO SCH (08:47)
[2021-03-20] MEDS: amLODIPine 5 MG TAB PO SCH (08:47)
[2021-03-20] MEDS: ACETAMINOPHEN 500 MG TAB PO SCH ×3 (08:47→20:21)
[2021-03-20] MEDS: DOCUSATE SODIUM 100MG CAPSULE PO SCH ×2 (08:47→20:19)
[2021-03-20] MEDS: PANTOPRAZOLE 40MG TAB (PROTONIX) PO SCH (08:47)
[2021-03-20] MEDS: ASPIRIN 81MG ENTERIC TABLET PO SCH (08:47)
[2021-03-20] MEDS: REMEDY PHYTOPLEX Z-GUARD PASTE 113GM TUBE (FROM STOREROOM PRODUCT) TOP SCH ×3 (08:48→20:21)
[2021-03-20] MEDS: **NOTE PATIENT COMMENT** MISC XX SCH (09:03)
--- NOTE | 2021-03-20 12:24 | IPNPDOC ---
Text Note Date of Service The patient was seen on 03/20/21. NOTE SUBJECTIVE: Patient was seen this morning in acute rehabilitation unit while undergoing PT she was on a seated recliner doing really well without getting short of breath. She seemed to be drinking good amount of water. She was told time and again to continue increasing her oral intake. Patient verbalized understanding. OBJECTIVE: General Exam: Positive: Alert, Cooperative, No Acute Distress Eye Exam: Positive: PERRLA, Conjunctiva & lids normal, EOMI; Negative: Sclera icteric ENT Exam: Positive: Atraumatic, Mucous membr. moist/pink, Pharynx Normal Neck Exam: Positive: Supple; Negative: JVD, thyromegaly Chest Exam: Positive: Clear to auscultation, Normal air movement Heart Exam: Positive: Rate Normal, Regular Rhythm, Normal S1, Normal S2; Negative: Murmurs, Rubs Abdomen Exam: Positive: Normal bowel sounds, Soft; Negative: Tenderness Extremity Exam: Negative: Clubbing, Cyanosis, Edema Skin Exam: Positive: Nl turgor and temperature; Negative: Breakdown, Lesion Neuro Exam: Positive: Normal Speech, Normal Tone, Sensation Intact Psych Exam: Positive: Oriented x 3 ASSESSMENT AND PLAN: 75 year old female from [facility] assisted living with PMH of dementia, HTN, HLD, CVA, fall and pelvic rami fracture in 2018, initially presented to ED on 03/07/21 for low back pain found to have T12 compression fracture with some retropulsion. There was no fall or trauma. As we did not have orthopedic spine coverage patient was sent down to [place] from ED. There she was evaluated and told non surgical, pain control given a brace and discharged. Today she was sent from [facility] of uncontrollable back pain and unable to do her ADLs independently and calling the staff every 15 mins for help . In ED she says that her her goes away with tylenol but no one was giving her the pain meds. Her got a done of norco at 2 am and a tylenol and 5:45 am. Initially in the ED she was pain free able to get in and out of bed by herself and sit in the chair by herself reported and felt good and wanted to be discharged. PT came to evaluate her 30 mins later at that time she was complaining of severe back pain and needed 2 person assist to get out of bed so could not be discharged back to assisted living. Hospitalist was consulted for admission for pain control and inability to ambulate. 1. Acute kidney injury secondary to dehydration: Kidney function has improved and her acute kidney injury was mostly related to dehydration. She is not receiving any IV fluids anymore because she is a hard stick and her IV came out. Attempted to put in the IV again was not possible. Encouraging the patient to increase oral fluid intake. On clinical exam patient did not look dehydrated. Will keep an eye on her kidney function and follow-up closely VS,Donald, I+O VS, Donald, I+O Laboratory Tests 03/19/21 16:37 03/19/21 19:43 03/20/21 07:03 Vital Signs Date Time Temp Pulse Resp B/P (MAP) Pulse Ox O2 Delivery O2 Flow Rate FiO2 03/20/21 08:47 79 136/66 03/20/21 07:08 18 03/20/21 05:37 98.2 95 Room Air I&O- Last 24 Hours up to 6 AM 03/20/21 05:59 Intake Total 2560 ml Balance 2560 ml Janae Santos MD Mar 20, 2021 12:21
[2021-03-20 14:00] VITALS: BP 169/76
[2021-03-20 20:00] VITALS: BP 157/75
[2021-03-20] MEDS: SENNA 8.6 MG TAB (SENOKOT) PO SCH (20:19)
[2021-03-20] MEDS: ATORVASTATIN 20 MG TAB PO SCH (20:19)
[2021-03-20] MEDS: LIDOCAINE 5% (LIDODERM) PATCH TD SCH (20:20)
[2021-03-20] MEDS: DONEPEZIL 5 MG TAB PO SCH (20:20)
[2021-03-21 05:02] VITALS: BP 164/78
[2021-03-21] MEDS: DOCUSATE SODIUM 100MG CAPSULE PO SCH ×2 (07:52→20:04)
[2021-03-21] MEDS: amLODIPine 5 MG TAB PO SCH (07:52)
[2021-03-21] MEDS: CALCIUM/VITAMIN D 500 MG TAB PO SCH (07:52)
[2021-03-21] MEDS: traMADol 50 MG TAB PO SCH ×3 (07:52→17:49)
[2021-03-21] MEDS: ACETAMINOPHEN 500 MG TAB PO SCH ×3 (07:53→20:05)
[2021-03-21] MEDS: ASPIRIN 81MG ENTERIC TABLET PO SCH (07:53)
[2021-03-21] MEDS: PANTOPRAZOLE 40MG TAB (PROTONIX) PO SCH (07:55)
[2021-03-21] MEDS: **NOTE PATIENT COMMENT** MISC XX SCH (07:55)
[2021-03-21] MEDS: REMEDY PHYTOPLEX Z-GUARD PASTE 113GM TUBE (FROM STOREROOM PRODUCT) TOP SCH ×3 (08:01→20:06)
[2021-03-21 14:00] VITALS: BP 111/61
[2021-03-21 20:00] VITALS: BP 125/60
[2021-03-21] MEDS: DONEPEZIL 5 MG TAB PO SCH (20:05)
[2021-03-21] MEDS: SENNA 8.6 MG TAB (SENOKOT) PO SCH (20:05)
[2021-03-21] MEDS: LIDOCAINE 5% (LIDODERM) PATCH TD SCH (20:05)
[2021-03-21] MEDS: ATORVASTATIN 20 MG TAB PO SCH (20:05)
[2021-03-22 06:00] VITALS: BP 141/72
[2021-03-22] MEDS: traMADol 50 MG TAB PO SCH ×3 (07:01→17:18)
[2021-03-22] MEDS: DOCUSATE SODIUM 100MG CAPSULE PO SCH ×2 (08:23→21:00)
[2021-03-22] MEDS: ONDANSETRON 4 MG ORAL DISINTEGRATING TAB PO PRN (08:23)
[2021-03-22] MEDS: ASPIRIN 81MG ENTERIC TABLET PO SCH (08:23)
[2021-03-22] MEDS: **NOTE PATIENT COMMENT** MISC XX SCH (08:23)
[2021-03-22] MEDS: CALCIUM/VITAMIN D 500 MG TAB PO SCH (08:23)
[2021-03-22] MEDS: ACETAMINOPHEN 500 MG TAB PO SCH ×3 (08:23→21:45)
[2021-03-22] MEDS: PANTOPRAZOLE 40MG TAB (PROTONIX) PO SCH (08:23)
[2021-03-22] MEDS: amLODIPine 5 MG TAB PO SCH (08:25)
[2021-03-22] MEDS: REMEDY PHYTOPLEX Z-GUARD PASTE 113GM TUBE (FROM STOREROOM PRODUCT) TOP SCH ×3 (08:25→21:00)
--- NOTE | 2021-03-22 09:33 | IPN ---
NEPHROLOGY PROGRESS NOTE DATE: 03/21/2021 SUBJECTIVE: Mrs. Dennison is seen this morning on her bedside. She is laying in the bed and reports not feeling well. She could not tell me any specific complaints. She has no dyspnea or chest pain. She reports decreased appetite and does not remember if she had breakfast. PHYSICAL EXAMINATION: VITAL SIGNS: Temperature 98.2 degrees Fahrenheit, heart rate 70 per minute, respiratory rate 18 per minute, blood pressure 160/70 mmHg, oxygen saturation 99% on room air. HEAD: Atraumatic. NECK: Supple and without jugular venous distention (JVD) or thyroid enlargement. HEART SOUNDS: Regular. LUNGS: Clear to auscultation. ABDOMEN: Soft and nontender. Bowel sounds are normal. EXTREMITIES: Without any cyanosis or clubbing. She has no peripheral edema. LABORATORY DATA: She did not have any new labs done today. PROBLEMS: 1. Acute kidney injury. Patient had acute kidney injury due to dehydration caused by decreased oral intake. Her kidney function improved with intravenous (IV) fluid. Yesterday, her IV infiltrated and she has difficult peripheral access, so we stopped her IV fluid and patient should be encouraged to increase her oral intake. Her labs will be checked again tomorrow. 2. Hypertension. Blood pressure very well controlled on amlodipine 5 mg daily. 3. Back pain. She has compression fracture of her vertebra and reports back pain. She remains on Tramadol. MTDD
--- NOTE | 2021-03-22 11:03 | IPNPDOC ---
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 REVIEW OF SYSTEMS: The following is a completed review of systems and has been reviewed. Review of systems otherwise unremarkable. PAIN: Patient self reports non-radiating back pain EYES: No recent vision changes EARS, NOSE, & THROAT: No throat pain, or dysphagia, or rhinorrhea CARDIOVASCULAR: Denies chest pain or palpitations PULMONARY: Denies shortness of breath GASTROINTESTINAL: Denies constipation/diarrhea GENITOURINARY: denies dysuria MUSCULOSKELETAL: +generalized weakness NEUROLOGICAL:denies paresthesias, +dementia HEMATOLOGICAL: denies easy bruising SKIN: denies rash PSYCHIATRIC: +confused All other review of systems found to be negative. PHYSICAL EXAMINATION: VITAL SIGNS: Please see below. GENERAL: Pleasant and cooperative. No acute distress. HEENT: PERRL. Extraocular movements intact. Clear conjunctiva CARDIOVASCULAR: Regular rate and rhythm. No murmurs, rubs, or gallops LUNGS: Clear to auscultation bilaterally. No wheezes. No rhonchi ABDOMEN: Soft, nontender, nondistended. Positive bowel sounds. no RUQ TTP NEUROLOGICAL: Alert and oriented to self and time, unable to name president. Cranial nerves II through XII grossly intact. Sensation grossly intact EXTREMITIES: 5\5 strength bilateral upper extremities. 5-\5 strength right lower extremity. 5-/5 strength in left lower extremity. ASSESSMENT:75-year-old F with past medical history of CVA, HTn, dementia, osteoporosis who presents status post T12 compression fracture with spinal cord impingement and intractable low back pain PLAN: 1. Rehab- PT/OT advance mobility and ADls, strengthen/stretch/maintain ROM all4 limbs- LSO when out of bed (patient refuses TLSO brace) 2. Ortho- T12 compression fracture with retropulsion and spinal cord compression, cont pain management and therapy, patient evaled by spine surgeon at [facility] and no need for surgery, monitor for neuro decline -recent CT abd/pelvis showing increased T12 retropulsion, Dr. Estrada reviewed imaging and given no new weakness on exam does not recommend surgical intervention- patient also does not wish to have any surgery, she is ambulating well in therapy 3. CArdiac- hx of HTN cont BP meds -HLD cont statin -ASA for cardioprotection -medicine consulted to assist in overall management 4. Neuro- hx of dementia, but able to participate in therapy with carryover, cont aricept, monitor for delirium 5. Resp- monitor for infection 6. Pain- tylenol, tramadol (dose lowered due to lethargy and episode of unresponsiveness today and tizanidine d/c'd for same reason), cont Lidoderm patch 7. DVT ppx- lovenox and teds -dopplers negative for DVT 8. GI ppx- protonix - CT abd/pelvis + cholelithiasis but patient does not have RUQ TTP -+FOBT Hgb apepars stable, will cont to monitor, will recommend outpatient GI/gen surg follow-up for now 9. - UA negative, voiding well 10. ID- leukocytosis likely due to dehydration, patient does not appear toxic, continues to be afebrile and participating in therapy with infectious work-up negative- Ucx negative, CXR negative , blood cx negative -CT abdomen pelvis ordered showing lung nodule which per discussion with radiologist is old -CT chest showing no infiltrate -Lactic acid level WNL 11. Renal- CAROL, improving following IVF renal consulted and recs appreciated -lisinopril d/c'd 12. Dispo- TBD Allergies Coded Allergies: No Known Drug Allergies (Verified Allergy, Unknown, 03/10/21) Vital Signs Vital Signs Date Time Temp Pulse Resp B/P (MAP) Pulse Ox O2 Delivery O2 Flow Rate FiO2 03/22/21 08:25 110 112/84 03/22/21 07:01 15 03/22/21 06:00 97.5 96 Room Air Microbiology Microbiology 03/20/21 Stool Occult Blood (JAVI) - Final, Complete 03/16/21 Blood Culture - Final, Complete NO GROWTH AFTER 5 DAYS 03/16/21 Blood Culture - Final, Complete NO GROWTH AFTER 5 DAYS Current Medications Current Medications Current Medications Medications (Trade) Dose Ordered Sig/Ramana Route PRN Reason Start Time Stop Time Status Last Admin Dose Admin Acetaminophen (Tylenol Tab) 1,000 mg TID PO 03/15/21 16:00 03/22/21 08:23 Alendronate Sodium (Fosamax) 35 mg Th@07 PO 03/18/21 07:00 03/18/21 06:10 Amlodipine Besylate (Norvasc) 5 mg DAILY PO 03/16/21 09:00 03/22/21 08:25 Aspirin (Ecotrin) 81 mg DAILY PO 03/16/21 09:00 03/22/21 08:23 Atorvastatin Calcium (Lipitor) 40 mg QHS PO 03/15/21 21:00 03/21/21 20:05 Calcium/Vitamin D (Oscal D) 1,000 mg DAILY PO 03/17/21 09:00 03/22/21 08:23 Docusate Sodium (Colace) 100 mg BID PO 03/15/21 21:00 03/22/21 08:23 Donepezil HCl (AriCEPT) 10 mg QHS PO 03/15/21 21:00 03/21/21 20:05 Enoxaparin Sodium (Lovenox) 40 mg DAILY SC 03/16/21 09:00 03/18/21 13:20 DC 03/18/21 08:26 Home Med (Home Med List Complete!) ASDIRECTED XX 03/15/21 14:55 03/15/21 15:02 DC Lidocaine (Lidoderm Patch) 1 patch QHS TD 03/15/21 21:00 03/21/21 20:05 Lisinopril (Prinivil) 10 mg BID PO 03/15/21 21:00 03/18/21 13:20 DC 03/17/21 20:02 Non-Formulary Medication ( See Comment Field Below ) REMOVE LIDODERM PATCH DAILY XX 03/16/21 09:00 03/22/21 08:23 Ondansetron HCl (Zofran Odt) 4 mg Q6HP PRN PO NAUSEA OR VOMITING 03/16/21 14:20 03/22/21 08:23 Pantoprazole Sodium (Protonix) 40 mg DAILY PO 03/16/21 09:00 03/22/21 08:23 Polyethylene Glycol (Miralax) 1 pkt DAILY PRN PO CONSTIPATION 03/15/21 13:35 03/17/21 07:56 Senna (Senokot) 1 tab QHS PO 03/15/21 21:00 03/21/21 20:05 Sodium Chloride 1,000 ml @ 125 mls/hr Q8H IV 03/18/21 13:20 03/20/21 11:55 DC 03/20/21 05:08 Tizanidine HCl (Zanaflex) 2 mg Q8HP PRN PO BACK PAIN 03/15/21 13:35 03/18/21 12:22 DC 03/18/21 08:25 Tramadol HCl (Ultram) 25 mg Q12HP PRN PO MODERATE PAIN (PS 5-7) 03/18/21 12:25 03/19/21 04:03 Tramadol HCl (Ultram) 25 mg TID@0800,1300,1800 PO 03/18/21 13:00 03/22/21 07:01 Tramadol HCl (Ultram) 50 mg Q12HP PRN PO MODERATE PAIN (PS 5-7) 03/15/21 13:35 03/18/21 12:22 DC 03/18/21 04:53 Tramadol HCl (Ultram) 50 mg TID@0800,1300,1800 PO 03/15/21 18:00 03/18/21 12:22 DC 03/18/21 09:56 BERNARDO CORRIGAN MD Mar 22, 2021 11:03
[2021-03-22 11:42] LABS: ALBUMIN 2.5 GM/DL (3.2-5.2); CALCIUM LEVEL 8.5 MG/DL (8.8-10.2); CREATININE FOR GFR 0.98 MG/DL (0.55-1.30); GLOMERULAR FILTRATION RATE 58.6 (>39); PHOSPHORUS LEVEL 1.8 MG/DL (2.5-4.9)
[2021-03-22 14:00] VITALS: BP 124/66
[2021-03-22 20:00] VITALS: BP 122/65
[2021-03-22] MEDS: SENNA 8.6 MG TAB (SENOKOT) PO SCH (21:00)
[2021-03-22] MEDS: DONEPEZIL 5 MG TAB PO SCH (21:44)
[2021-03-22] MEDS: ATORVASTATIN 20 MG TAB PO SCH (21:44)
[2021-03-22] MEDS: LIDOCAINE 5% (LIDODERM) PATCH TD SCH (21:45)
--- NOTE | 2021-03-22 22:41 | IPNPDOC ---
Subjective CC/HPI The patient is a 75-year-old female admitted with a reason for visit of Non Traumatic Spinal Cord. Events since last encounter Came after getting PT, still c/o back pain, renal function is stable. General: Reports: ROS Unobtainable; Denies: Chills, Night Sweats, Fatigue, Malaise, Normal Appetite, Other Symptoms Constitutional: Denies: Chills, Fever, Malaise, Night Sweats, Weakness, Fatigue, Weight Loss, Lethargy, Other Eyes: Denies: Pain, Vision change, Conjunctivae inflammation, Eyelid inflammation, Redness, Other ENT: Denies: Head Aches, Ear Pain, Dysphagia, Sinus Congestion, Post Nasal Drip, Sore Throat, Epistaxis, Other Symptoms Skin: Denies: Rash, Lesions, Jaundice, Bruising, Itching, Dry, Breakdown, Nail Changes, Other Pulmonary: Denies: Dyspnea, Cough, Pleuritic Chest Pain, Other Symptoms Cardiovascular: Denies: Chest Pain, Palpitations, Orthopnea, Paroxysmal Noc. Dyspnea, Edema, Lt Headedness, Other Symptoms Gastrointestinal: Denies: Nausea, Vomiting, Abdominal Pain, Diarrhea, Constipation, Melena, Hematochezia, Other Symptoms Genitourinary: Denies: Dysuria, Frequency, Incontinence, Hematuria, Retention, Other Symptoms Hematologic: Denies: Bruising, Bleeding Excessively, Petecchia, Purpura, Enlarged Lymph Nodes, Other Hematologic Endocrine: Denies: Polydipsia, Polyphagia, Polyuria, Heat Intolerance, Cold Intolerance, Other Endocrine Sx Musculoskeletal: Reports: Back Pain Neurological: Reports: Weakness Psych: Reports: Mood Normal Objective Physical Examination General Exam: Alert, Mild Distress (painful distress) EYE EXAM: PERRLA, Conjunctiva & lids normal, EOMI ENT EXAM: Atraumatic, Mucous membr. moist/pink Neck Exam: Supple; No: JVD, thyromegaly Chest Exam: Clear to auscultation, Normal air movement Heart Exam: Rate Normal, Normal S1, Normal S2 ABDOMEN EXAM: Normal bowel sounds, Soft; No: Tenderness Extremity Exam: No: Clubbing, Cyanosis, Edema Skin Exam: Nl turgor and temperature; No: Rash Psych Exam: Mental status NL, Mood NL Vital Signs/I&O Vital Signs Date Time Temp Pulse Resp B/P (MAP) Pulse Ox O2 Delivery O2 Flow Rate FiO2 03/22/21 20:00 98.5 57 19 122/65 (84) 93 Room Air I&O- Last 24 Hours up to 6 AM 03/22/21 06:00 Intake Total 680 ml Balance 680 ml Laboratory Data Labs 24H Laboratory Tests 2 03/22/21 11:12: Anion Gap 12, Glomerular Filtration Rate 58.6, Calcium Level 8.5L, Phosphorus Level 1.8L, Albumin 2.5L CBC/BMP Laboratory Tests 03/22/21 11:12 Current Medications Current Medications Medications (Trade) Dose Ordered Sig/Ramana Route PRN Reason Start Time Stop Time Status Last Admin Dose Admin Acetaminophen (Tylenol Tab) 1,000 mg TID PO 03/15/21 16:00 03/22/21 21:45 Alendronate Sodium (Fosamax) 35 mg Th@07 PO 03/18/21 07:00 03/18/21 06:10 Amlodipine Besylate (Norvasc) 5 mg DAILY PO 03/16/21 09:00 03/22/21 08:25 Aspirin (Ecotrin) 81 mg DAILY PO 03/16/21 09:00 03/22/21 08:23 Atorvastatin Calcium (Lipitor) 40 mg QHS PO 03/15/21 21:00 03/22/21 21:44 Calcium/Vitamin D (Oscal D) 1,000 mg DAILY PO 03/17/21 09:00 03/22/21 08:23 Docusate Sodium (Colace) 100 mg BID PO 03/15/21 21:00 03/22/21 08:23 Donepezil HCl (AriCEPT) 10 mg QHS PO 03/15/21 21:00 03/22/21 21:44 Enoxaparin Sodium (Lovenox) 40 mg DAILY SC 03/16/21 09:00 03/18/21 13:20 DC 03/18/21 08:26 Home Med (Home Med List Complete!) ASDIRECTED XX 03/15/21 14:55 03/15/21 15:02 DC Lidocaine (Lidoderm Patch) 1 patch QHS TD 03/15/21 21:00 03/22/21 21:45 Lisinopril (Prinivil) 10 mg BID PO 03/15/21 21:00 03/18/21 13:20 DC 03/17/21 20:02 Non-Formulary Medication ( See Comment Field Below ) REMOVE LIDODERM PATCH DAILY XX 03/16/21 09:00 03/22/21 08:23 Ondansetron HCl (Zofran Odt) 4 mg Q6HP PRN PO NAUSEA OR VOMITING 03/16/21 14:20 03/22/21 08:23 Pantoprazole Sodium (Protonix) 40 mg DAILY PO 03/16/21 09:00 03/22/21 08:23 Polyethylene Glycol (Miralax) 1 pkt DAILY PRN PO CONSTIPATION 03/15/21 13:35 03/17/21 07:56 Senna (Senokot) 1 tab QHS PO 03/15/21 21:00 03/21/21 20:05 Sodium Chloride 1,000 ml @ 125 mls/hr Q8H IV 03/18/21 13:20 03/20/21 11:55 DC 03/20/21 05:08 Tizanidine HCl (Zanaflex) 2 mg Q8HP PRN PO BACK PAIN 03/15/21 13:35 03/18/21 12:22 DC 03/18/21 08:25 Tramadol HCl (Ultram) 25 mg Q12HP PRN PO MODERATE PAIN (PS 5-7) 03/18/21 12:25 03/19/21 04:03 Tramadol HCl (Ultram) 25 mg TID@0800,1300,1800 PO 03/18/21 13:00 03/22/21 17:18 Tramadol HCl (Ultram) 50 mg Q12HP PRN PO MODERATE PAIN (PS 5-7) 03/15/21 13:35 03/18/21 12:22 DC 03/18/21 04:53 Tramadol HCl (Ultram) 50 mg TID@0800,1300,1800 PO 03/15/21 18:00 03/18/21 12:22 DC 03/18/21 09:56 Allergies Coded Allergies: No Known Drug Allergies (Verified Allergy, Unknown, 03/10/21) Assessment/Plan Date Seen The patient was seen on 03/22/21 at 22:38. Plan / VTE VTE Prophylaxis Ordered?: Yes Plan Orders past 48 Hours Orders Renal Profile (03/22/21 09:29) Cbc With Differential (03/22/21 11:01) Cbc With Differential (03/24/21 06:00) Basic Metabolic Profile (03/24/21 06:00) Plan Text CAROL sec to Dehydration Hypertension Compression spinal fracture and cord compression, Back pain Mild metabolic acidosis s/p IV fluids. renal function stable, No IV access available. Encourage oral hydration. Start oral bicarb. Cont current antihypertensive. Cont Ca and bisphosphonates. NALINI PANDEY MD Mar 22, 2021 22:41
[2021-03-23 06:00] VITALS: BP 148/69
[2021-03-23] MEDS: DOCUSATE SODIUM 100MG CAPSULE PO SCH ×2 (09:00→20:29)
[2021-03-23] MEDS: ASPIRIN 81MG ENTERIC TABLET PO SCH (09:04)
[2021-03-23] MEDS: PANTOPRAZOLE 40MG TAB (PROTONIX) PO SCH (09:04)
[2021-03-23] MEDS: traMADol 50 MG TAB PO SCH (09:05)
[2021-03-23] MEDS: ACETAMINOPHEN 500 MG TAB PO SCH (09:05)
[2021-03-23] MEDS: CALCIUM/VITAMIN D 500 MG TAB PO SCH (09:05)
[2021-03-23] MEDS: amLODIPine 5 MG TAB PO SCH (09:07)
[2021-03-23] MEDS: REMEDY PHYTOPLEX Z-GUARD PASTE 113GM TUBE (FROM STOREROOM PRODUCT) TOP SCH ×3 (09:07→20:35)
[2021-03-23] MEDS: **NOTE PATIENT COMMENT** MISC XX SCH (09:08)
--- NOTE | 2021-03-23 10:57 | IPNPDOC ---
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 She is moving well in therapy and initiating more on her own. REVIEW OF SYSTEMS: The following is a completed review of systems and has been reviewed. Review of systems otherwise unremarkable. PAIN: Patient self reports non-radiating back pain EYES: No recent vision changes EARS, NOSE, & THROAT: No throat pain, or dysphagia, or rhinorrhea CARDIOVASCULAR: Denies chest pain or palpitations PULMONARY: Denies shortness of breath GASTROINTESTINAL: Denies constipation/diarrhea GENITOURINARY: denies dysuria MUSCULOSKELETAL: +generalized weakness (improving) NEUROLOGICAL:denies paresthesias, +dementia HEMATOLOGICAL: denies easy bruising SKIN: denies rash PSYCHIATRIC: +confused All other review of systems found to be negative. PHYSICAL EXAMINATION: VITAL SIGNS: Please see below. GENERAL: Pleasant and cooperative. No acute distress. HEENT: PERRL. Extraocular movements intact. Clear conjunctiva CARDIOVASCULAR: Regular rate and rhythm. No murmurs, rubs, or gallops LUNGS: Clear to auscultation bilaterally. No wheezes. No rhonchi ABDOMEN: Soft, nontender, nondistended. Positive bowel sounds. no RUQ TTP NEUROLOGICAL: Alert and oriented to self and time, unable to name president. Cranial nerves II through XII grossly intact. Sensation grossly intact EXTREMITIES: 5\5 strength bilateral upper extremities. 5-\5 strength right lower extremity. 5-/5 strength in left lower extremity. ASSESSMENT:75-year-old F with past medical history of CVA, HTn, dementia, osteoporosis who presents status post T12 compression fracture with spinal cord impingement and intractable low back pain PLAN: 1. Rehab- PT/OT advance mobility and ADls, strengthen/stretch/maintain ROM all4 limbs- LSO when out of bed (patient refuses TLSO brace), ambulating Mod-I to stand-by with therapy 2. Ortho- T12 compression fracture with retropulsion and spinal cord compr ession, cont pain management and therapy, patient evaled by spine surgeon at [facility] and no need for surgery, monitor for neuro decline -recent CT abd/pelvis showing increased T12 retropulsion, Dr. Estrada reviewed imaging and given no new weakness on exam does not recommend surgical intervent ion- patient also does not wish to have any surgery, she is ambulating well in therapy 3. CArdiac- hx of HTN cont BP meds -HLD cont statin -ASA for cardioprotection -medicine consulted to assist in overall management 4. Neuro- hx of dementia, but able to participate in therapy with carryover, cont aricept, monitor for delirium 5. Resp- monitor for infection 6. Pain- tylenol, tramadol changed to prn 7. DVT ppx- lovenox and teds -dopplers negative for DVT 8. GI ppx- protonix - CT abd/pelvis + cholelithiasis but patient does not have RUQ TTP -+FOBT Hgb apepars stable, will cont to monitor, will recommend outpatient GI/gen surg follow-up for now 9. - UA negative, voiding well 10. ID- leukocytosis likely due to dehydration, patient does not appear toxic, continues to be afebrile and participating in therapy with infectious work-up negative- Ucx negative, CXR negative , blood cx negative -CT abdomen pelvis ordered showing lung nodule which per discussion with radiologist is old -CT chest showing no infiltrate -Lactic acid level WNL 11. Renal- CAROL resolved following IVF renal consulted and recs appreciated -lisinopril d/c'd 12. Dispo- 03-26-[address] [place] [address] [facility] Allergies Coded Allergies: No Known Drug Allergies (Verified Allergy, Unknown, 03/10/21) Vital Signs Vital Signs Date Time Temp Pulse Resp B/P (MAP) Pulse Ox O2 Delivery O2 Flow Rate FiO2 03/23/21 09:07 76 135/87 03/23/21 09:05 18 03/23/21 06:00 97.0 96 Room Air Laboratory Data CBC/BMP Laboratory Tests 03/22/21 11:12 Labs 24H Laboratory Tests 2 03/22/21 11:12: Anion Gap 12, Glomerular Filtration Rate 58.6, Calcium Level 8.5L, Phosphorus Level 1.8L, Albumin 2.5L Microbiology Microbiology 03/20/21 Stool Occult Blood (JAVI) - Final, Complete 03/16/21 Blood Culture - Final, Complete NO GROWTH AFTER 5 DAYS 03/16/21 Blood Culture - Final, Complete NO GROWTH AFTER 5 DAYS Current Medications Current Medications Current Medications Medications (Trade) Dose Ordered Sig/Ramana Route PRN Reason Start Time Stop Time Status Last Admin Dose Admin Acetaminophen (Tylenol Tab) 1,000 mg TID PO 03/15/21 16:00 03/23/21 09:05 Alendronate Sodium (Fosamax) 35 mg Th@07 PO 03/18/21 07:00 03/18/21 06:10 Amlodipine Besylate (Norvasc) 5 mg DAILY PO 03/16/21 09:00 03/23/21 09:07 Aspirin (Ecotrin) 81 mg DAILY PO 03/16/21 09:00 03/23/21 09:04 Atorvastatin Calcium (Lipitor) 40 mg QHS PO 03/15/21 21:00 03/22/21 21:44 Calcium/Vitamin D (Oscal D) 1,000 mg DAILY PO 03/17/21 09:00 03/23/21 09:05 Docusate Sodium (Colace) 100 mg BID PO 03/15/21 21:00 03/22/21 08:23 Donepezil HCl (AriCEPT) 10 mg QHS PO 03/15/21 21:00 03/22/21 21:44 Enoxaparin Sodium (Lovenox) 40 mg DAILY SC 03/16/21 09:00 03/18/21 13:20 DC 03/18/21 08:26 Home Med (Home Med List Complete!) ASDIRECTED XX 03/15/21 14:55 03/15/21 15:02 DC Lidocaine (Lidoderm Patch) 1 patch QHS TD 03/15/21 21:00 03/22/21 21:45 Lisinopril (Prinivil) 10 mg BID PO 03/15/21 21:00 03/18/21 13:20 DC 03/17/21 20:02 Non-Formulary Medication ( See Comment Field Below ) REMOVE LIDODERM PATCH DAILY XX 03/16/21 09:00 03/23/21 09:08 Ondansetron HCl (Zofran Odt) 4 mg Q6HP PRN PO NAUSEA OR VOMITING 03/16/21 14:20 03/22/21 08:23 Pantoprazole Sodium (Protonix) 40 mg DAILY PO 03/16/21 09:00 03/23/21 09:04 Polyethylene Glycol (Miralax) 1 pkt DAILY PRN PO CONSTIPATION 03/15/21 13:35 03/17/21 07:56 Senna (Senokot) 1 tab QHS PO 03/15/21 21:00 03/21/21 20:05 Sodium Bicarbonate (Sodium Bicarbonate) 325 mg BID PO 03/23/21 21:00 Sodium Chloride 1,000 ml @ 125 mls/hr Q8H IV 03/18/21 13:20 03/20/21 11:55 DC 03/20/21 05:08 Tizanidine HCl (Zanaflex) 2 mg Q8HP PRN PO BACK PAIN 03/15/21 13:35 03/18/21 12:22 DC 03/18/21 08:25 Tramadol HCl (Ultram) 25 mg Q12HP PRN PO MODERATE PAIN (PS 5-7) 03/18/21 12:25 03/19/21 04:03 Tramadol HCl (Ultram) 25 mg TID@0800,1300,1800 PO 03/18/21 13:00 03/23/21 09:05 Tramadol HCl (Ultram) 50 mg Q12HP PRN PO MODERATE PAIN (PS 5-7) 03/15/21 13:35 03/18/21 12:22 DC 03/18/21 04:53 Tramadol HCl (Ultram) 50 mg TID@0800,1300,1800 PO 03/15/21 18:00 03/18/21 12:22 DC 03/18/21 09:56 BERNARDO CORRIGAN MD Mar 23, 2021 10:57
[2021-03-23 14:00] VITALS: BP 137/77
[2021-03-23] MEDS: traMADol 50 MG TAB PO PRN (18:06)
[2021-03-23 20:00] VITALS: BP 137/68
[2021-03-23] MEDS: DONEPEZIL 5 MG TAB PO SCH (20:29)
[2021-03-23] MEDS: SENNA 8.6 MG TAB (SENOKOT) PO SCH (20:29)
[2021-03-23] MEDS: LIDOCAINE 5% (LIDODERM) PATCH TD SCH (20:29)
[2021-03-23] MEDS: SODIUM BICARBONATE 325 MG TAB PO SCH (20:29)
[2021-03-23] MEDS: ATORVASTATIN 20 MG TAB PO SCH (20:29)
[2021-03-23] MEDS: ACETAMINOPHEN 500 MG TAB PO PRN (20:35)
[2021-03-24 06:00] VITALS: BP 131/71
[2021-03-24 07:51] LABS: BASO # 0.1 10^3/uL (0.0-0.2); BASO % 0.6 % (0.0-1.0); EOS # 0.2 10^3/uL (0.0-0.5); EOS % 1.4 % (0.0-3.0); HEMATOCRIT 40.9 % (36.0-47.0); HEMOGLOBIN 13.4 g/dl (12.0-15.5); LYMPH % 22.3 % (24.0-44.0); MEAN CORPUSCULAR HEMOGLOBIN 28.8 pg (27.0-33.0); MEAN CORPUSCULAR HGB CONC 32.8 g/dl (32.0-36.5); MEAN CORPUSCULAR VOLUME 87.8 fl (80.0-96.0); MONO % 7.3 % (2.0-8.0); NEUTROPHILS # 9.2 10^3/uL (1.5-8.5); NEUTROPHILS % 67.9 % (36.0-66.0); PLATELET COUNT, AUTOMATED 388 10^3/uL (150-450); RED BLOOD COUNT 4.66 10^6/uL (4.00-5.40); WHITE BLOOD COUNT 13.5 10^3/uL (4.0-10.0)
[2021-03-24] MEDS: CALCIUM/VITAMIN D 500 MG TAB PO SCH (08:01)
[2021-03-24] MEDS: PANTOPRAZOLE 40MG TAB (PROTONIX) PO SCH (08:01)
[2021-03-24] MEDS: DOCUSATE SODIUM 100MG CAPSULE PO SCH ×2 (08:01→20:39)
[2021-03-24] MEDS: amLODIPine 5 MG TAB PO SCH (08:02)
[2021-03-24] MEDS: ACETAMINOPHEN 500 MG TAB PO PRN (08:02)
[2021-03-24] MEDS: SODIUM BICARBONATE 325 MG TAB PO SCH ×2 (08:02→20:39)
[2021-03-24] MEDS: ASPIRIN 81MG ENTERIC TABLET PO SCH (08:02)
[2021-03-24] MEDS: **NOTE PATIENT COMMENT** MISC XX SCH (08:03)
[2021-03-24] MEDS: REMEDY PHYTOPLEX Z-GUARD PASTE 113GM TUBE (FROM STOREROOM PRODUCT) TOP SCH ×3 (08:03→20:40)
[2021-03-24 08:14] LABS: BLOOD UREA NITROGEN 18 MG/DL (7-18); CALCIUM LEVEL 8.4 MG/DL (8.8-10.2); CARBON DIOXIDE LEVEL 28 MEQ/L (21-32); CHLORIDE LEVEL 108 MEQ/L (98-107); CREATININE FOR GFR 0.61 MG/DL (0.55-1.30); GLOMERULAR FILTRATION RATE > 60.0 (>39); GLUCOSE, FASTING 89 MG/DL (70-100); POTASSIUM SERUM 3.6 MEQ/L (3.5-5.1); SODIUM LEVEL 141 MEQ/L (136-145)
--- NOTE | 2021-03-24 12:27 | IPNPDOC ---
PM&R Progress Note DATE OF SERVICE: Mar 24, 2021 [employer] Progress Note Subjective: Patient has no complaints and is feeling well. REVIEW OF SYSTEMS: The following is a completed review of systems and has been reviewed. Review of systems otherwise unremarkable. PAIN: Patient self reports non-radiating back pain EYES: No recent vision changes EARS, NOSE, & THROAT: No throat pain, or dysphagia, or rhinorrhea CARDIOVASCULAR: Denies chest pain or palpitations PULMONARY: Denies shortness of breath GASTROINTESTINAL: Denies constipation/diarrhea GENITOURINARY: denies dysuria MUSCULOSKELETAL: +generalized weakness (improving) NEUROLOGICAL:denies paresthesias, +dementia HEMATOLOGICAL: denies easy bruising SKIN: denies rash PSYCHIATRIC: +confused All other review of systems found to be negative. PHYSICAL EXAMINATION: VITAL SIGNS: Please see below. GENERAL: Pleasant and cooperative. No acute distress. HEENT: PERRL. Extraocular movements intact. Clear conjunctiva CARDIOVASCULAR: Regular rate and rhythm. No murmurs, rubs, or gallops LUNGS: Clear to auscultation bilaterally. No wheezes. No rhonchi ABDOMEN: Soft, nontender, nondistended. Positive bowel sounds. no RUQ TTP NEUROLOGICAL: Alert and oriented to self and time, unable to name president. Cranial nerves II through XII grossly intact. Sensation grossly intact EXTREMITIES: 5\5 strength bilateral upper extremities. 5-\5 strength right lower extremity. 5-/5 strength in left lower extremity. ASSESSMENT:75-year-old F with past medical history of CVA, HTn, dementia, osteoporosis who presents status post T12 compression fracture with spinal cord impingement and intractable low back pain PLAN: 1. Rehab- PT/OT advance mobility and ADls, strengthen/stretch/maintain ROM all4 limbs- LSO when out of bed (patient refuses TLSO brace), ambulating Mod-I to stand-by with therapy 2. Ortho- T12 compression fracture with retropulsion and spinal cord compression, cont pain management and therapy, patient evaled by spine surgeon at [facility] and no need for surgery, monitor for neuro decline -recent CT abd/pelvis showing increased T12 retropulsion, Dr. Estrada reviewed imaging and given no new weakness on exam does not recommend surgical intervention- patient also does not wish to have any surgery, she is ambulating well in therapy 3. CArdiac- hx of HTN cont BP meds -HLD cont statin -ASA for cardioprotection -medicine consulted to assist in overall management 4. Neuro- hx of dementia, but able to participate in therapy with carryover, cont aricept, monitor for delirium 5. Resp- monitor for infection 6. Pain- tylenol, tramadol changed to prn 7. DVT ppx- lovenox and teds -dopplers negative for DVT 8. GI ppx- protonix - CT abd/pelvis + cholelithiasis but patient does not have RUQ TTP -+FOBT Hgb apepars stable, will cont to monitor, will recommend outpatient GI/gen surg follow-up for now 9. - UA negative, voiding well 10. ID- leukocytosis likely due to dehydration, patient does not appear toxic, continues to be afebrile and participating in therapy with infectious work-up negative- Ucx negative, CXR negative , blood cx negative -CT abdomen pelvis ordered showing lung nodule which per discussion with radiologist is old -CT chest showing no infiltrate -Lactic acid level WNL 11. Renal- CAROL resolved following IVF renal consulted and recs appreciated -lisinopril d/c'd 12. Dispo- 03-26-21 to AL at [facility] Allergies Coded Allergies: No Known Drug Allergies (Verified Allergy, Unknown, 03/10/21) Vital Signs Vital Signs Date Time Temp Pulse Resp B/P (MAP) Pulse Ox O2 Delivery O2 Flow Rate FiO2 03/24/21 08:02 78 138/64 03/24/21 06:00 97.8 17 93 Room Air Laboratory Data CBC/BMP Laboratory Tests 03/24/21 07:21 Labs 24H Laboratory Tests 2 03/24/21 07:21: Immature Granulocyte % (Auto) 0.5, Neutrophils (%) (Auto) 67.9H, Lymphocytes (%) (Auto) 22.3L, Monocytes (%) (Auto) 7.3, Eosinophils (%) (Auto) 1.4, Basophils (%) (Auto) 0.6, Neutrophils # (Auto) 9.2H, Lymphocytes # (Auto) 3.0, Monocytes # (Auto) 1.0H, Eosinophils # (Auto) 0.2, Basophils # (Auto) 0.1, Nucleated Red Blood Cells % (auto) 0.0, Anion Gap 5L, Glomerular Filtration Rate > 60.0, Calcium Level 8.4L Microbiology Microbiology 03/20/21 Stool Occult Blood (JAVI) - Final, Complete 03/16/21 Blood Culture - Final, Complete NO GROWTH AFTER 5 DAYS 03/16/21 Blood Culture - Final, Complete NO GROWTH AFTER 5 DAYS Current Medications Current Medications Current Medications Medications (Trade) Dose Ordered Sig/Ramana Route PRN Reason Start Time Stop Time Status Last Admin Dose Admin Acetaminophen (Tylenol Tab) 1,000 mg Q8HP PRN PO PAIN LEVEL 4-7 03/23/21 16:50 03/24/21 08:02 Acetaminophen (Tylenol Tab) 1,000 mg TID PO 03/15/21 16:00 03/23/21 16:49 DC 03/23/21 09:05 Alendronate Sodium (Fosamax) 35 mg Th@07 PO 03/18/21 07:00 03/18/21 06:10 Amlodipine Besylate (Norvasc) 5 mg DAILY PO 03/16/21 09:00 03/24/21 08:02 Aspirin (Ecotrin) 81 mg DAILY PO 03/16/21 09:00 03/24/21 08:02 Atorvastatin Calcium (Lipitor) 40 mg QHS PO 03/15/21 21:00 03/23/21 20:29 Calcium/Vitamin D (Oscal D) 1,000 mg DAILY PO 03/17/21 09:00 03/24/21 08:01 Docusate Sodium (Colace) 100 mg BID PO 03/15/21 21:00 03/24/21 08:01 Donepezil HCl (AriCEPT) 10 mg QHS PO 03/15/21 21:00 03/23/21 20:29 Enoxaparin Sodium (Lovenox) 40 mg DAILY SC 03/16/21 09:00 03/18/21 13:20 DC 03/18/21 08:26 Home Med (Home Med List Complete!) ASDIRECTED XX 03/15/21 14:55 03/15/21 15:02 DC Lidocaine (Lidoderm Patch) 1 patch QHS TD 03/15/21 21:00 03/23/21 20:29 Lisinopril (Prinivil) 10 mg BID PO 03/15/21 21:00 03/18/21 13:20 DC 03/17/21 20:02 Non-Formulary Medication ( See Comment Field Below ) REMOVE LIDODERM PATCH DAILY XX 03/16/21 09:00 03/24/21 08:03 Ondansetron HCl (Zofran Odt) 4 mg Q6HP PRN PO NAUSEA OR VOMITING 03/16/21 14:20 03/22/21 08:23 Pantoprazole Sodium (Protonix) 40 mg DAILY PO 03/16/21 09:00 03/24/21 08:01 Polyethylene Glycol (Miralax) 1 pkt DAILY PRN PO CONSTIPATION 03/15/21 13:35 03/17/21 07:56 Senna (Senokot) 1 tab QHS PO 03/15/21 21:00 03/23/21 20:29 Sodium Bicarbonate (Sodium Bicarbonate) 325 mg BID PO 03/23/21 21:00 03/24/21 08:02 Sodium Chloride 1,000 ml @ 125 mls/hr Q8H IV 03/18/21 13:20 03/20/21 11:55 DC 03/20/21 05:08 Tizanidine HCl (Zanaflex) 2 mg Q8HP PRN PO BACK PAIN 03/15/21 13:35 03/18/21 12:22 DC 03/18/21 08:25 Tramadol HCl (Ultram) 25 mg Q12HP PRN PO MODERATE PAIN (PS 5-7) 03/18/21 12:25 03/23/21 14:43 DC 03/19/21 04:03 Tramadol HCl (Ultram) 25 mg Q6HP PRN PO MODERATE PAIN (PS 5-7) 03/23/21 14:45 03/23/21 18:06 Tramadol HCl (Ultram) 25 mg TID@0800,1300,1800 PO 03/18/21 13:00 03/23/21 14:43 DC 03/23/21 09:05 Tramadol HCl (Ultram) 50 mg Q12HP PRN PO MODERATE PAIN (PS 5-7) 03/15/21 13:35 03/18/21 12:22 DC 03/18/21 04:53 Tramadol HCl (Ultram) 50 mg TID@0800,1300,1800 PO 03/15/21 18:00 03/18/21 12:22 DC 03/18/21 09:56 BERNARDO CORRIGAN MD Mar 24, 2021 12:27
[2021-03-24 14:00] VITALS: BP 136/79
[2021-03-24] MEDS: traMADol 50 MG TAB PO PRN (14:51)
[2021-03-24 20:00] VITALS: BP 145/79
[2021-03-24] MEDS: ATORVASTATIN 20 MG TAB PO SCH (20:39)
[2021-03-24] MEDS: DONEPEZIL 5 MG TAB PO SCH (20:39)
[2021-03-24] MEDS: LIDOCAINE 5% (LIDODERM) PATCH TD SCH (20:39)
[2021-03-24] MEDS: SENNA 8.6 MG TAB (SENOKOT) PO SCH (20:40)
[2021-03-25 05:36] VITALS: BP 118/70
[2021-03-25] MEDS: ALENDRONATE 35MG TABLET PO SCH (06:07)
[2021-03-25] MEDS: REMEDY PHYTOPLEX Z-GUARD PASTE 113GM TUBE (FROM STOREROOM PRODUCT) TOP SCH ×3 (09:00→21:52)
[2021-03-25] MEDS: PANTOPRAZOLE 40MG TAB (PROTONIX) PO SCH (09:48)
[2021-03-25] MEDS: ASPIRIN 81MG ENTERIC TABLET PO SCH (09:48)
[2021-03-25] MEDS: SODIUM BICARBONATE 325 MG TAB PO SCH ×2 (09:48→21:51)
[2021-03-25] MEDS: **NOTE PATIENT COMMENT** MISC XX SCH (09:48)
[2021-03-25] MEDS: traMADol 50 MG TAB PO PRN (09:48)
[2021-03-25] MEDS: DOCUSATE SODIUM 100MG CAPSULE PO SCH ×2 (09:48→21:52)
[2021-03-25] MEDS: CALCIUM/VITAMIN D 500 MG TAB PO SCH (09:48)
[2021-03-25] MEDS: amLODIPine 5 MG TAB PO SCH (09:49)
--- NOTE | 2021-03-25 11:59 | IPNPDOC ---
Text Note Date of Service The patient was seen on 03/25/21. NOTE Subjective: Patient is a 75-year-old female who is in the acute rehab unit for rehabilitation after a T12 compression fracture was found. Patient had episode of unresponsiveness on 03/18/2021 however, has not had any issues since then. Patient's been doing well with physical therapy. Patient states he is mildly tired today but is otherwise feeling well. Patient does complain of some back pain. Patient lives at [facility] living [facility] and is going to be discharged back there tomorrow. Patient is excited about this prospect. Review of systems: General: Patient denies fevers HEENT: Patient denies headaches Cardiovascular: Patient denies chest pain Respiratory: Patient denies shortness of breath, cough GI: Patient denies abdominal pain, nausea, vomiting, diarrhea : Patient denies increased frequency or pain with urination Extremities: Patient denies swelling or pain in extremities Neurological: Patient denies numbness or tingling in legs Physical exam: Vitals: See below General: Alert and oriented female patient was work with occupational therapy when I walked in the room. Patient did not appear to be in any acute distress. HEENT: Normocephalic, atraumatic, moist mucous membranes. Neck: No lymphadenopathy or thyromegaly Cardiac: Regular rate and rhythm, no murmurs, normal S1, normal S2 Pulm: Clear to auscultation bilaterally. No wheezes, rhonchi, rales Abd: Nondistended, nontender to palpation, normal bowel sounds Ext: No edema bilateral lower extremities Labs: See below Imaging: No new imaging has been performed. Assessment/plan: 75-year-old female from [facility] assisted living with past medical history of dementia, hypertension, hyperlipidemia, CVA, fall with pelvic rami fracture in 2018, initially presented to the ED on 03/07/2021 for low back pain found to have a T12 compression fracture with some retropulsion. Patient received treatment with pain management in [facility] and she was discharged to the acute rehab unit on 03/16/2021. 1. T12 compression fracture. Continue PT and OT. Patient was started on calcium with vitamin D and alendronate weekly. 2. Dementia. Continue donezepil 3. Hypertension. Patient blood pressure has been under control. We will continue with lisinopril and amlodipine. 4. History of stroke. Continue aspirin and statin. 5. Leukocytosis patient does not appear to have any infectious signs. In looking back in the patient's record, patient has always had an elevated white blood cell count around 12-15,000 on all blood work dating back to 2007 in the [facility]. Patient does not appear to have an infection at this time and patient can continue to monitor this outpatient. 6. CAROL, resolved. Patient had an acute kidney injury started on 03/17/2021 which is most likely secondary to volume depletion. Patient's creatinine did recover from a max of 1.88 and has been in the normal range since 03/19/2021. 7. Episode of unresponsiveness. Patient had episode of unresponsiveness on 03/18/2021 and was evaluated by hospitalist. Patient has not had any episodes like this since and work-up was negative. DVT Prophylaxis: Mayank Disposition: Discharge per Dr. Freedman. In speaking with Dr. Freedman, it appears the patient is going to be discharged back to [facility] living tomorrow, 03/26/2021 VS,Wue, I+O VS, Anujbone, I+O Vital Signs Date Time Temp Pulse Resp B/P (MAP) Pulse Ox O2 Delivery O2 Flow Rate FiO2 03/25/21 10:25 18 03/25/21 09:49 79 165/75 03/25/21 05:36 98.2 93 Room Air I&O- Last 24 Hours up to 6 AM 03/25/21 06:00 Intake Total 690 ml Balance 690 ml BIBI PILLAI DO Mar 25, 2021 11:59
[2021-03-25 14:00] VITALS: BP 158/80
[2021-03-25] MEDS ORDERED: CALCD50TA PO (15:14)
[2021-03-25] MEDS ORDERED: TRAM50TA2 PO (15:14)
[2021-03-25] MEDS ORDERED: SODI325T9 PO (15:14)
[2021-03-25] MEDS ORDERED: ALEN35TA56 PO (15:14)
[2021-03-25] MEDS ORDERED: PANT40TA29 PO (15:14)
[2021-03-25 20:00] VITALS: BP 149/72
[2021-03-25] MEDS: SENNA 8.6 MG TAB (SENOKOT) PO SCH (21:51)
[2021-03-25] MEDS: LIDOCAINE 5% (LIDODERM) PATCH TD SCH (21:52)
[2021-03-25] MEDS: ATORVASTATIN 20 MG TAB PO SCH (21:52)
[2021-03-25] MEDS: DONEPEZIL 5 MG TAB PO SCH (21:52)
[2021-03-26 06:00] VITALS: BP 180/84
[2021-03-26 06:54] VITALS: BP 142/70
[2021-03-26 08:36] VITALS: BP 182/84
[2021-03-26] MEDS: **NOTE PATIENT COMMENT** MISC XX SCH (08:36)
[2021-03-26] MEDS: DOCUSATE SODIUM 100MG CAPSULE PO SCH (08:36)
[2021-03-26] MEDS: CALCIUM/VITAMIN D 500 MG TAB PO SCH (08:36)
[2021-03-26] MEDS: PANTOPRAZOLE 40MG TAB (PROTONIX) PO SCH (08:36)
[2021-03-26] MEDS: amLODIPine 5 MG TAB PO SCH (08:36)
[2021-03-26] MEDS: ASPIRIN 81MG ENTERIC TABLET PO SCH (08:36)
[2021-03-26] MEDS: SODIUM BICARBONATE 325 MG TAB PO SCH (08:36)
[2021-03-26] MEDS: REMEDY PHYTOPLEX Z-GUARD PASTE 113GM TUBE (FROM STOREROOM PRODUCT) TOP SCH (08:37)
--- NOTE | 2021-03-26 11:43 | IPNPDOC ---
PM&R Progress Note DATE OF SERVICE: Mar 25, 2021 [employer] Progress Note Subjective: Patient reporting she is ready to go back to the [facility] tomorrow and her pain is well controlled. She denies any new weakness. REVIEW OF SYSTEMS: The following is a completed review of systems and has been reviewed. Review of systems otherwise unremarkable. PAIN: Patient self reports non-radiating back pain EYES: No recent vision changes EARS, NOSE, & THROAT: No throat pain, or dysphagia, or rhinorrhea CARDIOVASCULAR: Denies chest pain or palpitations PULMONARY: Denies shortness of breath GASTROINTESTINAL: Denies constipation/diarrhea GENITOURINARY: denies dysuria MUSCULOSKELETAL: +generalized weakness (improving) NEUROLOGICAL:denies paresthesias, +dementia HEMATOLOGICAL: denies easy bruising SKIN: denies rash PSYCHIATRIC: +confused All other review of systems found to be negative. PHYSICAL EXAMINATION: VITAL SIGNS: Please see below. GENERAL: Pleasant and cooperative. No acute distress. HEENT: PERRL. Extraocular movements intact. Clear conjunctiva CARDIOVASCULAR: Regular rate and rhythm. No murmurs, rubs, or gallops LUNGS: Clear to auscultation bilaterally. No wheezes. No rhonchi ABDOMEN: Soft, nontender, nondistended. Positive bowel sounds. no RUQ TTP NEUROLOGICAL: Alert and oriented to self and time, unable to name president. Cranial nerves II through XII grossly intact. Sensation grossly intact EXTREMITIES: 5\5 strength bilateral upper extremities. 5-\5 strength right lower extremity. 5-/5 strength in left lower extremity. ASSESSMENT:75-year-old F with past medical history of CVA, HTn, dementia, osteoporosis who presents status post T12 compression fracture with spinal cord impingement and intractable low back pain PLAN: 1. Rehab- PT/OT advance mobility and ADls, strengthen/stretch/maintain ROM all4 limbs- LSO when out of bed (patient refuses TLSO brace), ambulating Mod-I to stand-by with therapy 2. Ortho- T12 compression fracture with retropulsion and spinal cord compression, cont pain management and therapy, patient evaled by spine surgeon at [facility] and no need for surgery, monitor for neuro decline -recent CT abd/pelvis showing increased T12 retropulsion, Dr. Estrada reviewed imaging and given no new weakness on exam does not recommend surgical intervention- patient also does not wish to have any surgery, she is ambulating well in therapy 3. CArdiac- hx of HTN cont BP meds -HLD cont statin -ASA for cardioprotection -medicine consulted to assist in overall management 4. Neuro- hx of dementia, but able to participate in therapy with carryover, co nt aricept, monitor for delirium 5. Resp- monitor for infection 6. Pain- tylenol, tramadol changed to prn 7. DVT ppx- lovenox and teds -dopplers negative for DVT 8. GI ppx- protonix - CT abd/pelvis + cholelithiasis but patient does not have RUQ TTP -+FOBT Hgb apepars stable, will cont to monitor, will recommend outpatient GI/gen surg follow-up for now 9. - UA negative, voiding well 10. ID- leukocytosis likely due to dehydration, patient does not appear toxic, continues to be afebrile and participating in therapy with infectious work-up negative- Ucx negative, CXR negative , blood cx negative -CT abdomen pelvis ordered showing lung nodule which per discussion with radiologist is old -CT chest showing no infiltrate -Lactic acid level WNL 11. Renal- CAROL resolved following IVF renal consulted and recs appreciated -lisinopril d/c'd 12. Dispo- 03-26-21 to AL at [facility] Allergies Coded Allergies: No Known Drug Allergies (Verified Allergy, Unknown, 03/10/21) Vital Signs Vital Signs Date Time Temp Pulse Resp B/P (MAP) Pulse Ox O2 Delivery O2 Flow Rate FiO2 03/26/21 08:36 69 182/84 03/26/21 06:00 97.7 20 93 Room Air Laboratory Data Labs 24H Laboratory Tests 2 03/25/21 17:38: Coronavirus (COVID-19)(PCR) NEGATIVE Microbiology Microbiology 03/20/21 Stool Occult Blood (JAVI) - Final, Complete 03/16/21 Blood Culture - Final, Complete NO GROWTH AFTER 5 DAYS 03/16/21 Blood Culture - Final, Complete NO GROWTH AFTER 5 DAYS Current Medications Current Medications Current Medications Medications (Trade) Dose Ordered Sig/Ramana Route PRN Reason Start Time Stop Time Status Last Admin Dose Admin Acetaminophen (Tylenol Tab) 1,000 mg Q8HP PRN PO PAIN LEVEL 4-7 03/23/21 16:50 03/26/21 11:07 DC 03/24/21 08:02 Acetaminophen (Tylenol Tab) 1,000 mg TID PO 03/15/21 16:00 03/23/21 16:49 DC 03/23/21 09:05 Alendronate Sodium (Fosamax) 35 mg Th@07 PO 03/18/21 07:00 03/26/21 11:07 DC 03/25/21 06:07 Amlodipine Besylate (Norvasc) 5 mg DAILY PO 03/16/21 09:00 03/26/21 11:07 DC 03/26/21 08:36 Aspirin (Ecotrin) 81 mg DAILY PO 03/16/21 09:00 03/26/21 11:07 DC 03/26/21 08:36 Atorvastatin Calcium (Lipitor) 40 mg QHS PO 03/15/21 21:00 03/26/21 11:07 DC 03/25/21 21:52 Calcium/Vitamin D (Oscal D) 1,000 mg DAILY PO 03/17/21 09:00 03/26/21 11:07 DC 03/26/21 08:36 Docusate Sodium (Colace) 100 mg BID PO 03/15/21 21:00 03/26/21 11:07 DC 03/26/21 08:36 Donepezil HCl (AriCEPT) 10 mg QHS PO 03/15/21 21:00 03/26/21 11:07 DC 03/25/21 21:52 Enoxaparin Sodium (Lovenox) 40 mg DAILY SC 03/16/21 09:00 03/18/21 13:20 DC 03/18/21 08:26 Home Med (Home Med List Complete!) ASDIRECTED XX 03/15/21 14:55 03/15/21 15:02 DC Lidocaine (Lidoderm Patch) 1 patch QHS TD 03/15/21 21:00 03/26/21 11:07 DC 03/25/21 21:52 Lisinopril (Prinivil) 10 mg BID PO 03/15/21 21:00 03/18/21 13:20 DC 03/17/21 20:02 Non-Formulary Medication ( See Comment Field Below ) REMOVE LIDODERM PATCH DAILY XX 03/16/21 09:00 03/26/21 11:07 DC 03/26/21 08:36 Ondansetron HCl (Zofran Odt) 4 mg Q6HP PRN PO NAUSEA OR VOMITING 03/16/21 14:20 03/26/21 11:07 DC 03/22/21 08:23 Pantoprazole Sodium (Protonix) 40 mg DAILY PO 03/16/21 09:00 03/26/21 11:07 DC 03/26/21 08:36 Polyethylene Glycol (Miralax) 1 pkt DAILY PRN PO CONSTIPATION 03/15/21 13:35 03/26/21 11:07 DC 03/17/21 07:56 Senna (Senokot) 1 tab QHS PO 03/15/21 21:00 03/26/21 11:07 DC 03/25/21 21:51 Sodium Bicarbonate (Sodium Bicarbonate) 325 mg BID PO 03/23/21 21:00 03/26/21 11:07 DC 03/26/21 08:36 Sodium Chloride 1,000 ml @ 125 mls/hr Q8H IV 03/18/21 13:20 03/20/21 11:55 DC 03/20/21 05:08 Tizanidine HCl (Zanaflex) 2 mg Q8HP PRN PO BACK PAIN 03/15/21 13:35 03/18/21 12:22 DC 03/18/21 08:25 Tramadol HCl (Ultram) 25 mg Q12HP PRN PO MODERATE PAIN (PS 5-7) 03/18/21 12:25 03/23/21 14:43 DC 03/19/21 04:03 Tramadol HCl (Ultram) 25 mg Q6HP PRN PO MODERATE PAIN (PS 5-7) 03/23/21 14:45 03/26/21 11:07 DC 03/25/21 09:48 Tramadol HCl (Ultram) 25 mg TID@0800,1300,1800 PO 03/18/21 13:00 03/23/21 14:43 DC 03/23/21 09:05 Tramadol HCl (Ultram) 50 mg Q12HP PRN PO MODERATE PAIN (PS 5-7) 03/15/21 13:35 03/18/21 12:22 DC 03/18/21 04:53 Tramadol HCl (Ultram) 50 mg TID@0800,1300,1800 PO 03/15/21 18:00 03/18/21 12:22 DC 03/18/21 09:56 BERNARDO CORRIGAN MD Mar 26, 2021 11:43
== END 2021-03-26 11:00 | DRG 560 ==
LOC: M PM&R 13:10
PROVIDERS: ADMIT Physical Medicine & Rehabilitation; ATTEND Physical Medicine & Rehabilitation
DX: M80.08XD Age-related osteoporosis with current pathological fracture, vertebra(e), subsequent encounter for fracture with routine healing (principal); N39.0 Urinary tract infection, site not specified; N17.9 Acute kidney failure, unspecified; M48.061 Spinal stenosis, lumbar region without neurogenic claudication; Z74.09 Other reduced mobility; Z74.1 Need for assistance with personal care; R53.1 Weakness; F03.90 Unspecified dementia, unspecified severity, without behavioral disturbance, psychotic disturbance, mood disturbance, and anxiety; E86.0 Dehydration; I10 Essential (primary) hypertension; R32 Unspecified urinary incontinence; R15.9 Full incontinence of feces; R55 Syncope and collapse; Z66 Do not resuscitate; Z79.82 Long term (current) use of aspirin; T42.8X5A Adverse effect of antiparkinsonism drugs and other central muscle-tone depressants, initial encounter; Z79.891 Long term (current) use of opiate analgesic; Z79.899 Other long term (current) drug therapy; R11.0 Nausea; D72.829 Elevated white blood cell count, unspecified; Z86.73 Personal history of transient ischemic attack (TIA), and cerebral infarction without residual deficits; Z20.822 Contact with and (suspected) exposure to COVID-19

== ENCOUNTER → 2021-03-30 | Outpatient (REF) | payer MEDICARE, MEDICAID ==
[~2021-03-30] MED LIST changes: +ALEN35TA56 PO; +CALCD50TA PO; +PANT40TA29 PO; +SODI325T9 PO
[2021-03-30 23:02] LABS: APPEARANCE, URINE CLOUDY (CLEAR); BACTERIA, URINE AUTO 1+ (NEGATIVE); BILIRUBIN, URINE AUTO NEGATIVE (NEGATIVE); BLOOD, URINE BLOOD 1+ (NEGATIVE); COLOR, URINE YELLOW (YELLOW); GLUCOSE, URINE (UA) AUTO NEGATIVE (NEGATIVE); KETONE, URINE AUTO NEGATIVE (NEGATIVE); LEUKOCYTE ESTERASE, URINE AUTO 3+ (NEGATIVE); MUCUS, URINE SMALL (NEGATIVE); NITRITE, URINE AUTO NEGATIVE (NEGATIVE); PROTEIN, URINE AUTO 1+ mg/dL (NEGATIVE); RBC, URINE AUTO 5 /HPF (0-3); SPECIFIC GRAVITY URINE AUTO 1.016 (1.002-1.035); SQUAMOUS EPITHELIAL CELL UR AU 2 /HPF (0-6); WBC, URINE AUTO TNTC /HPF (0-3)
== END ==
LOC: M LAB REF 22:11
PROVIDERS: ATTEND Family Medicine
DX: R41.82 Altered mental status, unspecified (principal); R35.8 Other polyuria

== ENCOUNTER → 2021-04-13 | Outpatient (REF) | payer MEDICARE, MEDICAID ==
[2021-04-13 10:55] LABS: AMORPHOUS SEDIMENT SMALL (NEGATIVE); APPEARANCE, URINE CLOUDY (CLEAR); BACTERIA, URINE AUTO 1+ (NEGATIVE); BILIRUBIN, URINE AUTO NEGATIVE (NEGATIVE); BLOOD, URINE BLOOD 1+ (NEGATIVE); CALCIUM OXALATE CRYSTALS LARGE; COLOR, URINE YELLOW (YELLOW); GLUCOSE, URINE (UA) AUTO NEGATIVE (NEGATIVE); KETONE, URINE AUTO NEGATIVE (NEGATIVE); LEUKOCYTE ESTERASE, URINE AUTO 2+ (NEGATIVE); MUCUS, URINE SMALL (NEGATIVE); NITRITE, URINE AUTO NEGATIVE (NEGATIVE); PROTEIN, URINE AUTO 1+ mg/dL (NEGATIVE); RBC, URINE AUTO 5 /HPF (0-3); RENAL EPITHELIAL CELLS 1 /HPF; SPECIFIC GRAVITY URINE AUTO 1.017 (1.002-1.035); SQUAMOUS EPITHELIAL CELL UR AU 4 /HPF (0-6); WBC, URINE AUTO 107 /HPF (0-3)
== END ==
PROVIDERS: ATTEND Family Medicine
DX: N39.0 Urinary tract infection, site not specified (principal)

== ENCOUNTER → 2021-04-14 | Outpatient (REF) | payer MEDICARE, MEDICAID ==
[2021-04-14 10:27] LABS: BASO # 0.1 10^3/uL (0.0-0.2); BASO % 1.2 % (0.0-1.0); EOS # 0.2 10^3/uL (0.0-0.5); EOS % 1.7 % (0.0-3.0); HEMATOCRIT 42.8 % (36.0-47.0); HEMOGLOBIN 13.8 g/dl (12.0-15.5); LYMPH # 2.6 10^3/uL (1.5-5.0); LYMPH % 27.1 % (24.0-44.0); MEAN CORPUSCULAR HEMOGLOBIN 28.3 pg (27.0-33.0); MEAN CORPUSCULAR HGB CONC 32.2 g/dl (32.0-36.5); MEAN CORPUSCULAR VOLUME 87.9 fl (80.0-96.0); MONO # 0.9 10^3/uL (0.0-0.8); MONO % 9.2 % (2.0-8.0); NEUTROPHILS # 5.8 10^3/uL (1.5-8.5); NEUTROPHILS % 60.2 % (36.0-66.0); PLATELET COUNT, AUTOMATED 382 10^3/uL (150-450); RED BLOOD COUNT 4.87 10^6/uL (4.00-5.40); WHITE BLOOD COUNT 9.6 10^3/uL (4.0-10.0)
[2021-04-14 10:58] LABS: ALBUMIN 2.3 GM/DL (3.2-5.2); ALT/SGPT 23 U/L (12-78); BILIRUBIN,TOTAL 0.6 MG/DL (0.2-1.0); BLOOD UREA NITROGEN 17 MG/DL (7-18); CALCIUM LEVEL 8.7 MG/DL (8.8-10.2); CARBON DIOXIDE LEVEL 29 MEQ/L (21-32); CHLORIDE LEVEL 103 MEQ/L (98-107); CREATININE FOR GFR 0.76 MG/DL (0.55-1.30); GLOMERULAR FILTRATION RATE > 60.0 (>39); GLUCOSE, FASTING 90 MG/DL (70-100); POTASSIUM SERUM 3.2 MEQ/L (3.5-5.1); SODIUM LEVEL 140 MEQ/L (136-145); TOTAL PROTEIN 6.6 GM/DL (6.4-8.2)
== END ==
PROVIDERS: ATTEND Family Medicine
DX: I10 Essential (primary) hypertension (principal); N39.0 Urinary tract infection, site not specified

== ENCOUNTER → 2021-05-25 | Outpatient (REF) | payer MEDICARE, MEDICAID ==
[2021-05-26 11:36] LABS: APPEARANCE, URINE CLOUDY (CLEAR); BACTERIA, URINE AUTO 1+ (NEGATIVE); BILIRUBIN, URINE AUTO NEGATIVE (NEGATIVE); BLOOD, URINE BLOOD 1+ (NEGATIVE); CALCIUM OXALATE CRYSTALS MODERATE; COLOR, URINE YELLOW (YELLOW); GLUCOSE, URINE (UA) AUTO NEGATIVE (NEGATIVE); KETONE, URINE AUTO NEGATIVE (NEGATIVE); LEUKOCYTE ESTERASE, URINE AUTO 3+ (NEGATIVE); MUCUS, URINE SMALL (NEGATIVE); NITRITE, URINE AUTO NEGATIVE (NEGATIVE); PROTEIN, URINE AUTO 1+ mg/dL (NEGATIVE); RBC, URINE AUTO 11 /HPF (0-3); SPECIFIC GRAVITY URINE AUTO 1.029 (1.002-1.035); SQUAMOUS EPITHELIAL CELL UR AU 3 /HPF (0-6); UROBILINOGEN, URINE AUTO 0.2 mg/dL (0.0-2.0); WBC, URINE AUTO 160 /HPF (0-3)
== END ==
LOC: M LAB REF 09:44
PROVIDERS: ATTEND Family Medicine
DX: N39.0 Urinary tract infection, site not specified (principal)

== ENCOUNTER → 2021-06-04 | Outpatient (CLI) | payer MEDICARE, MEDICAID ==
--- NOTE | 2021-06-04 09:45 | REP ---
INDICATION: BACK PAIN. COMPARISON: 03/07/2021 TECHNIQUE: Five views FINDINGS: Since the last examination a grade 4 T12 compression fracture has developed. The remainder of the exam is unchanged from the prior exam showing degenerative disc disease and degenerative facet joint changes at multiple levels. There is marginal osteophytosis seen bilaterally greatest at the L3-4 level on the left status quo. IMPRESSION: Newly developed T12 compression fracture as described above. <Electronically signed by Donald Booth > 06/04/21 [id number]
--- NOTE | 2021-06-04 09:46 | REP ---
INDICATION: BACK PAIN. COMPARISON: None. TECHNIQUE: AP and lateral views FINDINGS: There is a grade 4 T12 compression fracture. Please review the lumbosacral spine report also made today. The posterior component of the fracture may be retropulsed. Thoracic vertebral body height and alignment is otherwise within normal limits. There is anterior lipping and mild disc space narrowing at every level. IMPRESSION: Thoracic vertebral body compression fracture as described above. Consider further evaluation with MRI to evaluate the central canal if clinically relevant. <Electronically signed by Donald Booth > 06/04/21 [id number]
== END ==
LOC: M RAD 09:07
PROVIDERS: ATTEND Physician Assistant
DX: S22.080A Wedge compression fracture of T11-T12 vertebra, initial encounter for closed fracture (principal)

== ENCOUNTER → 2021-06-09 | Outpatient (REF) | payer MEDICARE, MEDICAID ==
[2021-06-09 17:15] LABS: HEMATOCRIT 48.5 % (36.0-47.0); HEMOGLOBIN 15.7 g/dl (12.0-15.5); MEAN CORPUSCULAR HEMOGLOBIN 29.1 pg (27.0-33.0); MEAN CORPUSCULAR HGB CONC 32.4 g/dl (32.0-36.5); MEAN CORPUSCULAR VOLUME 89.8 fl (80.0-96.0); PLATELET COUNT, AUTOMATED 371 10^3/uL (150-450); WHITE BLOOD COUNT 12.7 10^3/uL (4.0-10.0)
== END ==
PROVIDERS: ATTEND Internal Medicine
DX: I10 Essential (primary) hypertension (principal)

== ENCOUNTER → 2021-06-11 | Outpatient (REF) ==
[2021-06-11 12:17] LABS: BLOOD UREA NITROGEN 13 MG/DL (7-18); CALCIUM LEVEL 9.7 MG/DL (8.8-10.2); CARBON DIOXIDE LEVEL 26 MEQ/L (21-32); CHLORIDE LEVEL 102 MEQ/L (98-107); CREATININE FOR GFR 0.51 MG/DL (0.55-1.30); GLOMERULAR FILTRATION RATE > 60.0 (>39); GLUCOSE, FASTING 95 MG/DL (70-100); POTASSIUM SERUM 3.2 MEQ/L (3.5-5.1); SODIUM LEVEL 139 MEQ/L (136-145)
== END ==
PROVIDERS: ATTEND Physician Assistant
DX: I10 Essential (primary) hypertension (principal)

== ENCOUNTER → 2021-06-16 | Outpatient (CLI) | payer MEDICARE, MEDICAID | LOC: M PLAIMG 09:23 | PROVIDERS: ATTEND Physician Assistant | DX: S22.080A Wedge compression fracture of T11-T12 vertebra, initial encounter for closed fracture (principal); W18.30XA Fall on same level, unspecified, initial encounter; Y92.009 Unspecified place in unspecified non-institutional (private) residence as the place of occurrence of the external cause ==

== ENCOUNTER → 2021-06-30 | Outpatient (CLI) | payer MEDICARE, MEDICAID ==
--- NOTE | 2021-06-30 10:29 | REPVR ---
PROCEDURE INFORMATION: Exam: CT Thoracic Spine Without Contrast Exam date and time: 06/30/2021 9:45 AM Age: 75 years old Clinical indication: Other: Fracture; Additional info: Wedge compression fracture of t11-t12 vertebra init TECHNIQUE: Imaging protocol: Computed tomography images of the thoracic spine without contrast. Radiation optimization: All CT scans at this facility use at least one of these dose optimization techniques: automated exposure control; mA and/or kV adjustment per patient size (includes targeted exams where dose is matched to clinical indication); or iterative reconstruction. COMPARISON: CT Spine,thoracic w/o contrast 06/16/2021 9:44 AM FINDINGS: Vertebrae: There is a stable severe T12 compression fracture with a vertebra plana configuration, unchanged. There is 6 mm of retropulsion of the posterior margin into the canal, contributing to severe canal stenosis. Discs/Spinal canal/Neural foramina: Retropulsion at T12 contributes to severe canal stenosis, unchanged. Soft tissues: Unremarkable. Lungs: There is mild biapical emphysema. There is bibasilar atelectasis. Pleural spaces: There is a small left pleural effusion. IMPRESSION: Severe T12 compression deformity with vertebra plana configuration and retropulsion, unchanged. Stable associated severe canal stenosis. Electronically signed by: Estefany Mckee On 06/30/2021 10:28:58 AM
== END ==
LOC: M RAD 09:30
PROVIDERS: ATTEND Physician Assistant
DX: S22.080A Wedge compression fracture of T11-T12 vertebra, initial encounter for closed fracture (principal); W18.30XA Fall on same level, unspecified, initial encounter; Y92.009 Unspecified place in unspecified non-institutional (private) residence as the place of occurrence of the external cause

== ENCOUNTER → 2021-07-07 | Outpatient (REF) | payer MEDICARE, MEDICAID | PROVIDERS: ATTEND Internal Medicine | DX: E78.5 Hyperlipidemia, unspecified (principal) ==

== ENCOUNTER → 2021-07-07 | Outpatient (REF) | payer MEDICARE, MEDICAID ==
[2021-07-07 17:11] LABS: HEMATOCRIT 46.9 % (36.0-47.0); HEMOGLOBIN 15.3 g/dl (12.0-15.5); MEAN CORPUSCULAR HEMOGLOBIN 29.4 pg (27.0-33.0); MEAN CORPUSCULAR HGB CONC 32.6 g/dl (32.0-36.5); MEAN CORPUSCULAR VOLUME 90.2 fl (80.0-96.0); PLATELET COUNT, AUTOMATED 479 10^3/uL (150-450); WHITE BLOOD COUNT 14.1 10^3/uL (4.0-10.0)
[2021-07-07 18:22] LABS: BLOOD UREA NITROGEN 17 MG/DL (7-18); CALCIUM LEVEL 9.6 MG/DL (8.8-10.2); CARBON DIOXIDE LEVEL 30 MEQ/L (21-32); CHLORIDE LEVEL 98 MEQ/L (98-107); CREATININE FOR GFR 0.79 MG/DL (0.55-1.30); GLOMERULAR FILTRATION RATE > 60.0 (>39); GLUCOSE, FASTING 81 MG/DL (70-100); POTASSIUM SERUM 2.8 MEQ/L (3.5-5.1); SODIUM LEVEL 140 MEQ/L (136-145)
== END ==
PROVIDERS: ATTEND Internal Medicine
DX: I10 Essential (primary) hypertension (principal); Z79.899 Other long term (current) drug therapy

== ENCOUNTER → 2021-07-08 | Outpatient (REF) | payer MEDICARE, MEDICAID ==
[2021-07-08 15:38] LABS: HEMATOCRIT 42.8 % (36.0-47.0); HEMOGLOBIN 13.9 g/dl (12.0-15.5); MEAN CORPUSCULAR HEMOGLOBIN 29.2 pg (27.0-33.0); MEAN CORPUSCULAR HGB CONC 32.5 g/dl (32.0-36.5); MEAN CORPUSCULAR VOLUME 89.9 fl (80.0-96.0); PLATELET COUNT, AUTOMATED 444 10^3/uL (150-450); RED BLOOD COUNT 4.76 10^6/uL (4.00-5.40); WHITE BLOOD COUNT 11.3 10^3/uL (4.0-10.0)
[2021-07-08 16:11] LABS: BLOOD UREA NITROGEN 15 MG/DL (7-18); CALCIUM LEVEL 8.8 MG/DL (8.8-10.2); CARBON DIOXIDE LEVEL 28 MEQ/L (21-32); CHLORIDE LEVEL 106 MEQ/L (98-107); CREATININE FOR GFR 0.73 MG/DL (0.55-1.30); GLOMERULAR FILTRATION RATE > 60.0 (>39); GLUCOSE, FASTING 116 MG/DL (70-100); POTASSIUM SERUM 3.7 MEQ/L (3.5-5.1); SODIUM LEVEL 141 MEQ/L (136-145)
== END ==
PROVIDERS: ATTEND Internal Medicine
DX: I10 Essential (primary) hypertension (principal)

== ENCOUNTER → 2021-08-04 | Outpatient (REF) | payer MEDICARE, MEDICAID ==
[2021-08-04 15:46] LABS: HEMATOCRIT 50.5 % (36.0-47.0); HEMOGLOBIN 16.1 g/dl (12.0-15.5); MEAN CORPUSCULAR HGB CONC 31.9 g/dl (32.0-36.5); MEAN CORPUSCULAR VOLUME 90.8 fl (80.0-96.0); PLATELET COUNT, AUTOMATED 419 10^3/uL (150-450); RED BLOOD COUNT 5.56 10^6/uL (4.00-5.40); WHITE BLOOD COUNT 10.9 10^3/uL (4.0-10.0)
[2021-08-04 16:32] LABS: BLOOD UREA NITROGEN 27 MG/DL (7-18); CALCIUM LEVEL 9.6 MG/DL (8.8-10.2); CARBON DIOXIDE LEVEL 25 MEQ/L (21-32); CHLORIDE LEVEL 106 MEQ/L (98-107); CREATININE FOR GFR 0.68 MG/DL (0.55-1.30); GLOMERULAR FILTRATION RATE > 60.0 (>39); GLUCOSE, FASTING 71 MG/DL (70-100); POTASSIUM SERUM 4.6 MEQ/L (3.5-5.1); SODIUM LEVEL 136 MEQ/L (136-145)
== END ==
PROVIDERS: ATTEND Internal Medicine
DX: I10 Essential (primary) hypertension (principal)

== ENCOUNTER → 2021-12-01 | Outpatient (REF) | payer MEDICARE, MEDICAID ==
[2021-12-01 12:19] LABS: HEMATOCRIT 39.5 % (36.0-47.0); HEMOGLOBIN 12.5 g/dl (12.0-15.5); MEAN CORPUSCULAR HEMOGLOBIN 29.6 pg (27.0-33.0); MEAN CORPUSCULAR HGB CONC 31.6 g/dl (32.0-36.5); MEAN CORPUSCULAR VOLUME 93.6 fl (80.0-96.0); PLATELET COUNT, AUTOMATED 323 10^3/uL (150-450); RED BLOOD COUNT 4.22 10^6/uL (4.00-5.40); WHITE BLOOD COUNT 10.2 10^3/uL (4.0-10.0)
[2021-12-01 12:57] LABS: BLOOD UREA NITROGEN 14 MG/DL (7-18); CARBON DIOXIDE LEVEL 29 MEQ/L (21-32); CHLORIDE LEVEL 105 MEQ/L (98-107); CREATININE FOR GFR 0.73 MG/DL (0.55-1.30); GLOMERULAR FILTRATION RATE > 60.0 (>39); GLUCOSE, FASTING 89 MG/DL (70-100); POTASSIUM SERUM 4.6 MEQ/L (3.5-5.1); SODIUM LEVEL 139 MEQ/L (136-145)
== END ==
PROVIDERS: ATTEND Internal Medicine
DX: E87.6 Hypokalemia (principal)

== ENCOUNTER → 2022-04-13 | Outpatient (REF) | payer MEDICARE, MEDICAID ==
[2022-04-13 11:51] LABS: BASO % 0.3 % (0.0-1.0); EOS # 0.1 10^3/uL (0.0-0.5); EOS % 0.4 % (0.0-3.0); HEMATOCRIT 40.6 % (36.0-47.0); HEMOGLOBIN 12.7 g/dl (12.0-15.5); LYMPH # 3.5 10^3/uL (1.5-5.0); LYMPH % 27.8 % (24.0-44.0); MEAN CORPUSCULAR HGB CONC 31.3 g/dl (32.0-36.5); MEAN CORPUSCULAR VOLUME 89.4 fl (80.0-96.0); MONO # 1.1 10^3/uL (0.0-0.8); NEUTROPHILS # 7.7 10^3/uL (1.5-8.5); NEUTROPHILS % 62.3 % (36.0-66.0); PLATELET COUNT, AUTOMATED 372 10^3/uL (150-450); RED BLOOD COUNT 4.54 10^6/uL (4.00-5.40); WHITE BLOOD COUNT 12.4 10^3/uL (4.0-10.0)
[2022-04-13 12:36] LABS: BLOOD UREA NITROGEN 27 MG/DL (7-18); CALCIUM LEVEL 9.5 MG/DL (8.8-10.2); CARBON DIOXIDE LEVEL 22 MEQ/L (21-32); CHLORIDE LEVEL 108 MEQ/L (98-107); CREATININE FOR GFR 0.76 MG/DL (0.55-1.30); GLOMERULAR FILTRATION RATE > 60.0 (>39); GLUCOSE, FASTING 116 MG/DL (70-100); POTASSIUM SERUM 4.2 MEQ/L (3.5-5.1); SODIUM LEVEL 137 MEQ/L (136-145)
== END ==
PROVIDERS: ATTEND Nurse Practitioner Family
DX: M25.531 Pain in right wrist (principal)

== ENCOUNTER → 2022-06-08 | Outpatient (REF) | payer MEDICARE, MEDICAID ==
[2022-06-08 12:23] LABS: HEMATOCRIT 52.9 % (36.0-47.0); HEMOGLOBIN 16.1 g/dl (12.0-15.5); MEAN CORPUSCULAR HGB CONC 30.4 g/dl (32.0-36.5); MEAN CORPUSCULAR VOLUME 91.8 fl (80.0-96.0); PLATELET COUNT, AUTOMATED 361 10^3/uL (150-450); RED BLOOD COUNT 5.76 10^6/uL (4.00-5.40); WHITE BLOOD COUNT 12.2 10^3/uL (4.0-10.0)
[2022-06-08 13:43] LABS: BLOOD UREA NITROGEN 20 MG/DL (9-23); CARBON DIOXIDE LEVEL 22 MMOL/L (20-31); CHLORIDE LEVEL 104 MMOL/L (98-107); CREATININE FOR GFR 0.78 MG/DL (0.55-1.30); GLOMERULAR FILTRATION RATE > 60.0 (>39); GLUCOSE, FASTING 73 MG/DL (74-106); POTASSIUM SERUM 4.6 MMOL/L (3.5-5.1); SODIUM LEVEL 139 MMOL/L (136-145)
== END ==
PROVIDERS: ATTEND Internal Medicine
DX: E87.6 Hypokalemia (principal); Z79.899 Other long term (current) drug therapy

== ENCOUNTER → 2022-06-10 | Outpatient (REF) | payer MEDICARE, MEDICAID | PROVIDERS: ATTEND Nurse Practitioner Family | DX: R41.82 Altered mental status, unspecified (principal) ==

== ENCOUNTER → 2022-06-10 | Outpatient (REF) | payer MEDICARE, MEDICAID | PROVIDERS: ATTEND Nurse Practitioner Family | DX: R41.82 Altered mental status, unspecified (principal); Z53.8 Procedure and treatment not carried out for other reasons ==

== ENCOUNTER → 2022-06-21 | Outpatient (REF) ==
[2022-06-21 07:59] LABS: APPEARANCE, URINE MANUAL HAZY (CLEAR); COLOR, URINE MANUAL YELLOW (YELLOW)
[2022-06-21 08:01] LABS: BILIRUBIN, URINE MANUAL NEGATIVE (NEGATIVE); GLUCOSE, URINE (UA) MANUAL NEGATIVE (NEGATIVE); KETONE, URINE MANUAL NEGATIVE (NEGATIVE); PROTEIN, URINE MANUAL TRACE mg/dL (NEGATIVE); UROBILINOGEN, URINE MANUAL NORMAL (NORMAL)
[2022-06-21 08:02] LABS: BLOOD URINE MANUAL POSITIVE (NEGATIVE); LEUKOCYTE ESTERASE, URINE MAN POSITIVE (NEGATIVE); NITRITE, URINE MANUAL NEGATIVE (NEGATIVE)
[2022-06-21 08:41] LABS: BACTERIA, URINE LARGE AMOUNT; HYALINE CAST, URINE 0-1 /lpf (0-1); RBC, URINE 0-1 /hpf (0-3); SQUAMOUS EPITHELIAL CELL URINE SMALL AMOUNT /hpf (SMALL AMT); WBC, URINE 15-20 /hpf (0-3)
[2022-06-21 08:42] LABS: CALCIUM OXALATE CRYSTALS,URINE SMALL AMOUNT /hpf
== END ==
PROVIDERS: ATTEND Internal Medicine
DX: R41.0 Disorientation, unspecified (principal)

== ENCOUNTER → 2022-06-21 | Outpatient (REF) | payer MEDICARE, MEDICAID ==
[2022-06-21 12:35] LABS: HEMOGLOBIN 13.9 g/dl (12.0-15.5); MEAN CORPUSCULAR HGB CONC 31.6 g/dl (32.0-36.5); MEAN CORPUSCULAR VOLUME 88.5 fl (80.0-96.0); PLATELET COUNT, AUTOMATED 375 10^3/uL (150-450); RED BLOOD COUNT 4.97 10^6/uL (4.00-5.40)
[2022-06-21 13:03] LABS: BLOOD UREA NITROGEN 13 MG/DL (9-23); CALCIUM LEVEL 8.8 MG/DL (8.3-10.6); CARBON DIOXIDE LEVEL 23 MMOL/L (20-31); CHLORIDE LEVEL 103 MMOL/L (98-107); CREATININE FOR GFR 0.56 MG/DL (0.55-1.30); GLOMERULAR FILTRATION RATE > 60.0 (>39); GLUCOSE, FASTING 83 MG/DL (74-106); POTASSIUM SERUM 4.7 MMOL/L (3.5-5.1); SODIUM LEVEL 137 MMOL/L (136-145)
== END ==
PROVIDERS: ATTEND Internal Medicine
DX: R41.0 Disorientation, unspecified (principal)

== ENCOUNTER → 2022-06-22 | Outpatient (REF) | payer MEDICARE, MEDICAID ==
[2022-06-22 12:02] LABS: BASO # 0.1 10^3/uL (0.0-0.2); BASO % 0.6 % (0.0-1.0); EOS # 0.1 10^3/uL (0.0-0.5); HEMOGLOBIN 13.3 g/dl (12.0-15.5); LYMPH # 2.3 10^3/uL (1.5-5.0); LYMPH % 20.2 % (24.0-44.0); MEAN CORPUSCULAR HEMOGLOBIN 27.9 pg (27.0-33.0); MEAN CORPUSCULAR HGB CONC 31.7 g/dl (32.0-36.5); MEAN CORPUSCULAR VOLUME 88.2 fl (80.0-96.0); MONO % 8.4 % (2.0-8.0); NEUTROPHILS % 69.4 % (36.0-66.0); PLATELET COUNT, AUTOMATED 404 10^3/uL (150-450); RED BLOOD COUNT 4.76 10^6/uL (4.00-5.40); WHITE BLOOD COUNT 11.5 10^3/uL (4.0-10.0)
[2022-06-22 12:28] LABS: BLOOD UREA NITROGEN 9 MG/DL (9-23); CALCIUM LEVEL 9.2 MG/DL (8.3-10.6); CARBON DIOXIDE LEVEL 23 MMOL/L (20-31); CHLORIDE LEVEL 102 MMOL/L (98-107); CREATININE FOR GFR 0.56 MG/DL (0.55-1.30); GLOMERULAR FILTRATION RATE > 60.0 (>39); GLUCOSE, FASTING 110 MG/DL (74-106); POTASSIUM SERUM 4.1 MMOL/L (3.5-5.1); SODIUM LEVEL 134 MMOL/L (136-145)
== END ==
PROVIDERS: ATTEND Nurse Practitioner Family
DX: N39.0 Urinary tract infection, site not specified (principal)

== ENCOUNTER → 2022-07-23 | Outpatient (REF) | payer MEDICARE, MEDICAID | PROVIDERS: ATTEND Internal Medicine | DX: R50.9 Fever, unspecified (principal) ==

== ENCOUNTER → 2022-07-25 | Outpatient (REF) | payer MEDICAID, MEDICARE ==
[2022-07-25 12:30] LABS: BASO # 0.1 10^3/uL (0.0-0.2); BASO % 0.6 % (0.0-1.0); HEMOGLOBIN 12.7 g/dl (12.0-15.5); LYMPH # 2.6 10^3/uL (1.5-5.0); LYMPH % 26.2 % (24.0-44.0); MEAN CORPUSCULAR HEMOGLOBIN 26.7 pg (27.0-33.0); MEAN CORPUSCULAR HGB CONC 31.8 g/dl (32.0-36.5); MEAN CORPUSCULAR VOLUME 84.2 fl (80.0-96.0); MONO % 9.9 % (2.0-8.0); NEUTROPHILS # 6.3 10^3/uL (1.5-8.5); NEUTROPHILS % 62.9 % (36.0-66.0); PLATELET COUNT, AUTOMATED 369 10^3/uL (150-450); RED BLOOD COUNT 4.75 10^6/uL (4.00-5.40)
[2022-07-25 12:59] LABS: ALBUMIN 2.3 G/DL (3.2-5.2); ALKALINE PHOSPHATASE 38 U/L (46-116); ALT/SGPT 18 U/L (7.0-40); AST/SGOT 51 U/L (<34); BILIRUBIN,TOTAL 0.3 MG/DL (0.3-1.2); BLOOD UREA NITROGEN 23 MG/DL (9-23); CALCIUM LEVEL 8.6 MG/DL (8.3-10.6); CARBON DIOXIDE LEVEL 24 MMOL/L (20-31); CHLORIDE LEVEL 101 MMOL/L (98-107); GLOMERULAR FILTRATION RATE > 60.0 (>39); GLUCOSE, FASTING 102 MG/DL (74-106); POTASSIUM SERUM 3.6 MMOL/L (3.5-5.1); SODIUM LEVEL 135 MMOL/L (136-145); TOTAL PROTEIN 6.5 G/DL (5.7-8.2)
== END ==
PROVIDERS: ATTEND Nurse Practitioner Family
DX: U07.1 COVID-19 (principal)

== ENCOUNTER → 2022-07-27 | Outpatient (REF) ==
[2022-07-27 09:52] LABS: BASO # 0.1 10^3/uL (0.0-0.2); BASO % 0.4 % (0.0-1.0); EOS % 0.2 % (0.0-3.0); HEMATOCRIT 42.5 % (36.0-47.0); HEMOGLOBIN 13.5 g/dl (12.0-15.5); LYMPH % 24.7 % (24.0-44.0); MEAN CORPUSCULAR HEMOGLOBIN 26.7 pg (27.0-33.0); MEAN CORPUSCULAR HGB CONC 31.8 g/dl (32.0-36.5); MONO # 1.2 10^3/uL (0.0-0.8); MONO % 9.6 % (2.0-8.0); NEUTROPHILS # 7.9 10^3/uL (1.5-8.5); NEUTROPHILS % 64.7 % (36.0-66.0); PLATELET COUNT, AUTOMATED 364 10^3/uL (150-450); RED BLOOD COUNT 5.06 10^6/uL (4.00-5.40); WHITE BLOOD COUNT 12.3 10^3/uL (4.0-10.0)
[2022-07-27 10:29] LABS: ALBUMIN 2.3 G/DL (3.2-5.2); ALKALINE PHOSPHATASE 42 U/L (46-116); ALT/SGPT 19 U/L (7.0-40); AST/SGOT 48 U/L (<34); BILIRUBIN,TOTAL 0.4 MG/DL (0.3-1.2); BLOOD UREA NITROGEN 17 MG/DL (9-23); CALCIUM LEVEL 8.3 MG/DL (8.3-10.6); CARBON DIOXIDE LEVEL 25 MMOL/L (20-31); CHLORIDE LEVEL 102 MMOL/L (98-107); CREATININE FOR GFR 0.62 MG/DL (0.55-1.30); GLOMERULAR FILTRATION RATE > 60.0 (>39); GLUCOSE, FASTING 99 MG/DL (74-106); POTASSIUM SERUM 4.2 MMOL/L (3.5-5.1); SODIUM LEVEL 136 MMOL/L (136-145); TOTAL PROTEIN 6.7 G/DL (5.7-8.2)
== END ==
PROVIDERS: ATTEND Nurse Practitioner Family
DX: U07.1 COVID-19 (principal)

== ENCOUNTER → 2022-08-01 | Outpatient (REF) ==
[2022-08-01 10:53] LABS: BASO # 0.1 10^3/uL (0.0-0.2); BASO % 0.5 % (0.0-1.0); EOS # 0.1 10^3/uL (0.0-0.5); EOS % 0.9 % (0.0-3.0); HEMATOCRIT 47.2 % (36.0-47.0); HEMOGLOBIN 14.6 g/dl (12.0-15.5); LYMPH # 2.2 10^3/uL (1.5-5.0); LYMPH % 17.8 % (24.0-44.0); MEAN CORPUSCULAR HEMOGLOBIN 26.3 pg (27.0-33.0); MEAN CORPUSCULAR HGB CONC 30.9 g/dl (32.0-36.5); MONO # 1.2 10^3/uL (0.0-0.8); MONO % 9.6 % (2.0-8.0); NEUTROPHILS # 8.8 10^3/uL (1.5-8.5); PLATELET COUNT, AUTOMATED 506 10^3/uL (150-450); RED BLOOD COUNT 5.55 10^6/uL (4.00-5.40); WHITE BLOOD COUNT 12.5 10^3/uL (4.0-10.0)
[2022-08-01 11:20] LABS: ALBUMIN 2.5 G/DL (3.2-5.2); ALKALINE PHOSPHATASE 50 U/L (46-116); ALT/SGPT 16 U/L (7.0-40); AST/SGOT 34 U/L (<34); BILIRUBIN,TOTAL 0.6 MG/DL (0.3-1.2); BLOOD UREA NITROGEN 12 MG/DL (9-23); CALCIUM LEVEL 9.1 MG/DL (8.3-10.6); CARBON DIOXIDE LEVEL 24 MMOL/L (20-31); CHLORIDE LEVEL 99 MMOL/L (98-107); CREATININE FOR GFR 0.63 MG/DL (0.55-1.30); GLOMERULAR FILTRATION RATE > 60.0 (>39); GLUCOSE, FASTING 80 MG/DL (74-106); POTASSIUM SERUM 4.1 MMOL/L (3.5-5.1); SODIUM LEVEL 136 MMOL/L (136-145); TOTAL PROTEIN 7.5 G/DL (5.7-8.2)
== END ==
PROVIDERS: ATTEND Nurse Practitioner Family
DX: U07.1 COVID-19 (principal)

== ENCOUNTER → 2022-08-03 | Outpatient (REF) ==
[2022-08-03 11:30] LABS: BASO # 0.1 10^3/uL (0.0-0.2); BASO % 0.8 % (0.0-1.0); EOS # 0.2 10^3/uL (0.0-0.5); EOS % 1.5 % (0.0-3.0); HEMATOCRIT 42.1 % (36.0-47.0); HEMOGLOBIN 13.1 g/dl (12.0-15.5); LYMPH # 2.7 10^3/uL (1.5-5.0); LYMPH % 20.6 % (24.0-44.0); MEAN CORPUSCULAR HEMOGLOBIN 26.5 pg (27.0-33.0); MEAN CORPUSCULAR HGB CONC 31.1 g/dl (32.0-36.5); MEAN CORPUSCULAR VOLUME 85.2 fl (80.0-96.0); MONO # 0.9 10^3/uL (0.0-0.8); PLATELET COUNT, AUTOMATED 556 10^3/uL (150-450); RED BLOOD COUNT 4.94 10^6/uL (4.00-5.40); WHITE BLOOD COUNT 13.1 10^3/uL (4.0-10.0)
[2022-08-03 12:05] LABS: ALBUMIN 2.2 G/DL (3.2-5.2); ALKALINE PHOSPHATASE 51 U/L (46-116); ALT/SGPT 17 U/L (7.0-40); AST/SGOT 32 U/L (<34); BILIRUBIN,TOTAL 0.4 MG/DL (0.3-1.2); BLOOD UREA NITROGEN 14 MG/DL (9-23); CALCIUM LEVEL 8.6 MG/DL (8.3-10.6); CARBON DIOXIDE LEVEL 25 MMOL/L (20-31); CHLORIDE LEVEL 102 MMOL/L (98-107); CREATININE FOR GFR 0.71 MG/DL (0.55-1.30); GLOMERULAR FILTRATION RATE > 60.0 (>39); GLUCOSE, FASTING 125 MG/DL (74-106); POTASSIUM SERUM 3.7 MMOL/L (3.5-5.1); SODIUM LEVEL 139 MMOL/L (136-145); TOTAL PROTEIN 6.7 G/DL (5.7-8.2)
== END ==
PROVIDERS: ATTEND Nurse Practitioner Family
DX: U07.1 COVID-19 (principal)

== ENCOUNTER → 2022-08-31 | Outpatient (CLI) | payer MEDICARE, MEDICAID | LOC: M RAD 11:09 | PROVIDERS: ATTEND Physician Assistant | DX: R32 Unspecified urinary incontinence (principal); M47.896 Other spondylosis, lumbar region ==

== ENCOUNTER → 2022-10-31 | Outpatient (CLI) | payer MEDICARE, MEDICAID | LOC: M PLAIMG 10:04 | PROVIDERS: ATTEND Nurse Practitioner Family | DX: M54.9 Dorsalgia, unspecified (principal) ==

== ENCOUNTER → 2022-12-05 | Outpatient (REF) | payer MEDICARE, MEDICAID ==
[2022-12-05 11:38] LABS: HEMATOCRIT 42.3 % (36.0-47.0); HEMOGLOBIN 12.8 g/dl (12.0-15.5); MEAN CORPUSCULAR HEMOGLOBIN 22.9 pg (27.0-33.0); MEAN CORPUSCULAR HGB CONC 30.3 g/dl (32.0-36.5); MEAN CORPUSCULAR VOLUME 75.7 fl (80.0-96.0); PLATELET COUNT, AUTOMATED 468 10^3/uL (150-450); RED BLOOD COUNT 5.59 10^6/uL (4.00-5.40); WHITE BLOOD COUNT 12.2 10^3/uL (4.0-10.0)
[2022-12-05 12:06] LABS: BLOOD UREA NITROGEN 17 MG/DL (9-23); CALCIUM LEVEL 8.9 MG/DL (8.3-10.6); CARBON DIOXIDE LEVEL 25 MMOL/L (20-31); CHLORIDE LEVEL 103 MMOL/L (98-107); CHOLESTEROL LEVEL 106 MG/DL (<200); CHOLESTEROL RISK RATIO 2.69 (<5); CREATININE FOR GFR 0.54 MG/DL (0.55-1.30); GLOMERULAR FILTRATION RATE > 60.0 (>39); GLUCOSE, FASTING 97 MG/DL (74-106); HDL CHOLESTEROL 39.4 MG/DL (>40); NON-HDL-C 66.6 MG/DL; SODIUM LEVEL 136 MMOL/L (136-145); TRIGLYCERIDES LEVEL 83 MG/DL (<150)
== END ==
PROVIDERS: ATTEND Internal Medicine
DX: I10 Essential (primary) hypertension (principal); E55.9 Vitamin D deficiency, unspecified

== ENCOUNTER → 2023-06-07 | Outpatient (REF) | payer MEDICARE, MEDICAID ==
[2023-06-07 11:41] LABS: HEMATOCRIT 46.7 % (36.0-47.0); HEMOGLOBIN 14.7 g/dl (12.0-15.5); MEAN CORPUSCULAR HEMOGLOBIN 26.4 pg (27.0-33.0); MEAN CORPUSCULAR HGB CONC 31.5 g/dl (32.0-36.5); MEAN CORPUSCULAR VOLUME 83.8 fl (80.0-96.0); PLATELET COUNT, AUTOMATED 333 10^3/uL (150-450); RED BLOOD COUNT 5.57 10^6/uL (4.00-5.40); WHITE BLOOD COUNT 10.1 10^3/uL (4.0-10.0)
[2023-06-07 12:12] LABS: BLOOD UREA NITROGEN 16 MG/DL (9-23); CARBON DIOXIDE LEVEL 25 MMOL/L (20-31); CHLORIDE LEVEL 103 MMOL/L (98-107); CREATININE FOR GFR 0.68 MG/DL (0.55-1.30); GLOMERULAR FILTRATION RATE > 60.0 (>39); GLUCOSE, FASTING 83 MG/DL (74-106); SODIUM LEVEL 136 MMOL/L (136-145)
[2023-06-07 12:13] LABS: TOTAL 25(OH) VITAMIN D 44.4 NG/ML (20.0-100.0)
== END ==
PROVIDERS: ATTEND Internal Medicine
DX: E87.6 Hypokalemia (principal); Z79.899 Other long term (current) drug therapy

== ENCOUNTER → 2023-12-04 | Outpatient (REF) | payer MEDICARE, MEDICAID ==
[~2023-12-04] MED LIST changes: -ASPI-161 PO; +ASPI-615 PO
[2023-12-04 11:30] LABS: HEMATOCRIT 43.4 % (36.0-47.0); HEMOGLOBIN 14.2 g/dl (12.0-15.5); MEAN CORPUSCULAR HGB CONC 32.7 g/dl (32.0-36.5); MEAN CORPUSCULAR VOLUME 88.6 fl (80.0-96.0); PLATELET COUNT, AUTOMATED 303 10^3/uL (150-450); WHITE BLOOD COUNT 11.1 10^3/uL (4.0-10.0)
[2023-12-04 12:03] LABS: BLOOD UREA NITROGEN 15 MG/DL (9-23); CALCIUM LEVEL 9.4 MG/DL (8.3-10.6); CARBON DIOXIDE LEVEL 25 MMOL/L (20-31); CHLORIDE LEVEL 108 MMOL/L (98-107); CHOLESTEROL LEVEL 115 MG/DL (<200); CHOLESTEROL RISK RATIO 2.77 (<5); CREATININE FOR GFR 0.68 MG/DL (0.55-1.30); GLOMERULAR FILTRATION RATE > 60.0 (>39); GLUCOSE, FASTING 106 MG/DL (74-106); HDL CHOLESTEROL 41.4 MG/DL (>40); NON-HDL-C 73.6 MG/DL; SODIUM LEVEL 141 MMOL/L (136-145); TRIGLYCERIDES LEVEL 73 MG/DL (<150)
== END ==
PROVIDERS: ATTEND Internal Medicine
DX: I10 Essential (primary) hypertension (principal)

== ENCOUNTER → 2024-03-14 | Outpatient (REF) | payer MEDICARE, MEDICAID | PROVIDERS: ATTEND Internal Medicine | DX: R05.9 Cough, unspecified (principal) ==

== ENCOUNTER → 2024-06-03 | Outpatient (REF) | payer MEDICARE, MEDICAID ==
[2024-06-03 12:01] LABS: HEMATOCRIT 48.2 % (36.0-47.0); HEMOGLOBIN 15.3 g/dl (12.0-15.5); MEAN CORPUSCULAR HEMOGLOBIN 28.3 pg (27.0-33.0); MEAN CORPUSCULAR HGB CONC 31.7 g/dl (32.0-36.5); MEAN CORPUSCULAR VOLUME 89.1 fl (80.0-96.0); PLATELET COUNT, AUTOMATED 342 10^3/uL (150-450); RED BLOOD COUNT 5.41 10^6/uL (4.00-5.40); WHITE BLOOD COUNT 11.7 10^3/uL (4.0-10.0)
[2024-06-03 12:47] LABS: BLOOD UREA NITROGEN 15 MG/DL (9-23); CALCIUM LEVEL 9.5 MG/DL (8.3-10.6); CARBON DIOXIDE LEVEL 23 MMOL/L (20-31); CHLORIDE LEVEL 106 MMOL/L (98-107); CREATININE FOR GFR 0.68 MG/DL (0.55-1.30); GLOMERULAR FILTRATION RATE > 60.0 (>32); GLUCOSE, FASTING 91 MG/DL (74-106); POTASSIUM SERUM 4.2 MMOL/L (3.5-5.1); SODIUM LEVEL 139 MMOL/L (136-145)
[2024-06-03 12:49] LABS: TOTAL 25(OH) VITAMIN D 43.6 NG/ML (20.0-100.0)
== END ==
PROVIDERS: ATTEND Internal Medicine
DX: I10 Essential (primary) hypertension (principal); E55.9 Vitamin D deficiency, unspecified

== ENCOUNTER → 2025-02-05 | Outpatient (REF) | payer MEDICARE, MEDICAID ==
[~2025-02-05] MED LIST changes: +HYDR12.510 PO; -HYDR12CA PO
== END ==
PROVIDERS: ATTEND Internal Medicine
DX: N39.0 Urinary tract infection, site not specified (principal)

== ENCOUNTER → 2025-02-06 | Outpatient (REF) | payer MEDICARE, MEDICAID | PROVIDERS: ATTEND Internal Medicine | DX: R41.0 Disorientation, unspecified (principal) ==

== ENCOUNTER → 2025-02-07 | Outpatient (REF) | payer MEDICARE, MEDICAID ==
[2025-02-07 10:27] LABS: BASO # 0.1 10^3/uL (0.0-0.2); BASO % 0.8 % (0.0-1.0); EOS # 0.1 10^3/uL (0.0-0.5); EOS % 1.5 % (0.0-3.0); LYMPH # 2.9 10^3/uL (1.5-5.0); LYMPH % 29.8 % (24.0-44.0); MONO # 0.7 10^3/uL (0.0-0.8); MONO % 7.5 % (2.0-8.0); NEUTROPHILS # 5.8 10^3/uL (1.5-8.5); NEUTROPHILS % 60.2 % (36.0-66.0); PLATELET COUNT, AUTOMATED 366 10^3/uL (150-450)
[2025-02-07 10:59] LABS: CALCIUM LEVEL 9.3 MG/DL (8.3-10.6); CARBON DIOXIDE LEVEL 26.0 MMOL/L (20-31); CHLORIDE LEVEL 103.0 MMOL/L (98-107); CREATININE FOR GFR 0.8 MG/DL (0.55-1.30); GLOMERULAR FILTRATION RATE 74.0 (>32); POTASSIUM SERUM 4.1 MMOL/L (3.5-5.1); SODIUM LEVEL 142.0 MMOL/L (136-145)
== END ==
PROVIDERS: ATTEND Internal Medicine
DX: R41.0 Disorientation, unspecified (principal)

== ENCOUNTER → 2025-06-02 | Outpatient (REF) | payer MEDICARE, MEDICAID ==
[2025-06-02 12:47] LABS: PLATELET COUNT, AUTOMATED 289 10^3/uL (150-450)
[2025-06-02 13:11] LABS: CALCIUM LEVEL 8.8 MG/DL (8.3-10.6); CARBON DIOXIDE LEVEL 18.0 MMOL/L (20-31); CHLORIDE LEVEL 107.0 MMOL/L (98-107); CREATININE FOR GFR 0.86 MG/DL (0.55-1.30); GLOMERULAR FILTRATION RATE 67.8 (>32); POTASSIUM SERUM 4.6 MMOL/L (3.5-5.1); SODIUM LEVEL 144.0 MMOL/L (136-145)
[2025-06-02 13:12] LABS: TOTAL 25(OH) VITAMIN D 61.5 NG/ML (20.0-100.0)
== END ==
PROVIDERS: ATTEND Internal Medicine
DX: I10 Essential (primary) hypertension (principal); E55.9 Vitamin D deficiency, unspecified